=== PATIENT | female | born 1975 | race Caucasian/White ===

== ENCOUNTER 2017-05-19 14:58 | Outpatient (RCR) | payer BC, SELFPAY | END 2017-05-25 23:59 | LOC: NS 14:58 | PROVIDERS: Visit Provider Family Medicine | DX: E66.01 Morbid (severe) obesity due to excess calories (principal); Z68.42 Body mass index [BMI] 45.0-49.9, adult; Z71.3 Dietary counseling and surveillance | CPT/HCPCS: 97802 ==

== ENCOUNTER 2017-06-13 15:02 | Outpatient (RCR) | payer BC, SELFPAY | END 2017-06-25 23:59 | LOC: NS 15:02 | PROVIDERS: Visit Provider Family Medicine | DX: E66.01 Morbid (severe) obesity due to excess calories (principal); Z68.42 Body mass index [BMI] 45.0-49.9, adult; Z71.3 Dietary counseling and surveillance | CPT/HCPCS: 97803 ==

== ENCOUNTER → 2017-07-08 07:14 | Outpatient (CLI) | payer BC, SELFPAY ==
[2017-07-08 08:39] LABS: Erythrocyte Sedimentation Rate 11 mm/hr (0-20)
[2017-07-08 08:45] LABS: Absolute Lymphocyte Count 2.24 X10^3/ul (0.83-4.51); Absolute Neutrophil Count 2.9 X10^3/uL (2.0-7.7); Basophil# 0.01 X10^3/uL; Basophil% 0.2 % (0-1); Eosinophil# 0.08 X10^3/uL; Eosinophils% 1.4 % (0-5); Hematocrit 41.4 % (37-47); Hemoglobin 13.6 g/dl (12.0-15.0); Lymphocyte # 2.24 X10^3/ul (4.0); Lymphocyte % 40.4 % (19-41); Mean Corp Hgb Conc 32.9 g/gl (32-36); Mean Corpuscular Hgb 28.3 pg (27.0-32.0); Mean Corpuscular Volume 86.3 fL (81-99); Mean Platelet Vol. 9.2 fl (6.2-12.0); Monocyte# 0.37 X10^3/uL; Monocyte% 6.7 % (0-10); Neutrophil # 2.85 X10^3/uL (2.7-7.7); Neutrophil % 51.3 % (47-70); Platelet Count 263 K/mm3 (150-450); RBC Distribution Width CV 12.5 % (11.6-14.6); RBC Distribution Width SD 39.7 fl (35.1-43.9); White Blood Count 5.6 K/mm3 (4.4-11.0)
[2017-07-08 08:47] LABS: POSITIVE COUNT NO; POSITIVE DIFFERENTIAL NO; POSITIVE MORPHOLOGY NO
[2017-07-08 09:16] LABS: ALB/GLOB Ratio 0.9 RATIO (0.9-2.4); AST(SGOT) 15 U/L (15-37); Alanine Aminotransfer ALT/SGPT 24 U/L (13-56); Albumin, Serum 3.4 g/dL (3.2-5.0); Alkaline Phosphatase 63 U/L (45-117); Anion Gap 5 (5-15); BUN 13 mg/dL (7-18); BUN/Creat Ratio 15.7 RATIO (10-20); CRP 8.54 mg/L (0.0-3.0); Calcium,Total 8.6 mg/dL (8.5-10.1); Chloride 107 mmol/L (98-107); Cholesterol 166 mg/dL (200); Creatinine, Serum 0.83 mg/dL (0.55-1.02); EST Glomerular Filtration Rate 80 mL/min (>60); Est Glom Filt Rate - Afr Amer 97 mL/min (>60); Globulin 3.8 g/dL (2.2-4.2); Glucose 80 mg/dL (74-106); High Density Lipoprotein 46 mg/dL; Protein, Total 7.2 g/dL (6.4-8.2); Rheumatoid Factor < 10.0 IU/mL (<15); Sodium Level 140 mmol/L (136-145); Triglycerides 109 mg/dL; Very Low Density Lipoprotein 22 mg/dL (5-40)
[2017-07-08 09:44] LABS: Vitamin B12 530 pg/mL (211-911); Vitamin D,25 Hydroxy 25.8 ng/mL (29.95-100.01)
[2017-07-11 15:13] LABS: ANTINUCLEAR ANTIBODIES DIRECT Negative (Negative)
== END ==
PROVIDERS: Family Provider Family Medicine; PCP Family Medicine; Visit Provider Family Medicine
DX: M79.1 Myalgia (principal); Z13.1 Encounter for screening for diabetes mellitus; Z13.220 Encounter for screening for lipoid disorders
CPT/HCPCS: 36415; 80053; 80061; 82306; 82607; 84443; 85025; 85652; 86038; 86140; 86431

== ENCOUNTER 2017-07-13 15:30 | Outpatient (RCR) | payer BC, SELFPAY | END 2017-07-25 23:59 | LOC: NS 15:30 | PROVIDERS: Visit Provider Family Medicine | DX: E66.01 Morbid (severe) obesity due to excess calories (principal); Z68.42 Body mass index [BMI] 45.0-49.9, adult; Z71.3 Dietary counseling and surveillance | CPT/HCPCS: 97803 ==

== ENCOUNTER 2017-08-04 16:23 | Outpatient (RCR) | payer BC, SELFPAY | END 2017-08-25 23:59 | LOC: NS 16:23 | PROVIDERS: Family Provider Family Medicine; PCP Family Medicine; Visit Provider Family Medicine | DX: E66.01 Morbid (severe) obesity due to excess calories (principal); Z68.42 Body mass index [BMI] 45.0-49.9, adult; Z71.3 Dietary counseling and surveillance | CPT/HCPCS: 97803 ==

== ENCOUNTER 2017-09-06 16:22 | Outpatient (RCR) | payer BC, SELFPAY | END 2017-09-24 23:59 | LOC: NS 16:22 | PROVIDERS: Family Provider Family Medicine; PCP Family Medicine; Visit Provider Family Medicine | DX: E66.01 Morbid (severe) obesity due to excess calories (principal); Z68.42 Body mass index [BMI] 45.0-49.9, adult; Z71.3 Dietary counseling and surveillance | CPT/HCPCS: 97803 ==

== ENCOUNTER 2017-09-29 15:44 | Outpatient (RCR) | payer BC, SELFPAY | END 2017-10-25 23:59 | LOC: NS 15:44 | PROVIDERS: Family Provider Family Medicine; PCP Family Medicine; Visit Provider Family Medicine | DX: E66.9 Obesity, unspecified (principal); Z68.42 Body mass index [BMI] 45.0-49.9, adult; Z71.3 Dietary counseling and surveillance | CPT/HCPCS: 97803 ==

== ENCOUNTER → 2017-10-27 12:21 | Outpatient (CLI) | payer BC, SELFPAY ==
--- NOTE | 2017-10-27 12:24 | VDLE_ITS ---
Reason For Study: EDEMA Procedure LEFT Exam performed in department. GSV is normal. Technically difficult due to body habitus. CFV is compressible, spontaneous, phasic, A preliminary report was called and/or faxed competent, and demonstrates normal to CHIDI CRUMP. augmentation. FV is compressible, spontaneous, phasic, competent and demonstrates normal augmentation. POP V is compressible, spontaneous, phasic, competent and demonstrates normal augmentation. T/P Trunk is compressible. PTV is compressible. LT PerV is compressible. Interpretation Summary Deep veins of the left lower extremity are patent and compressible segmentally. There is no evidence of left lower extremity deep vein thrombosis. Valvular competence appears intact within the proximal deep venous system on the left . The left greater saphenous vein appears patent and compressible segmentally. Ordering Physician: CHIDI CRUMP Referring Physician: BEVERLY PRAJAPATI Performed By: Naomy Whitaker, EDSON, RVT
== END ==
PROVIDERS: Family Provider Family Medicine; PCP Family Medicine
DX: R60.9 Edema, unspecified (principal)
CPT/HCPCS: 93971

== ENCOUNTER 2017-11-08 08:22 | Outpatient (RCR) | payer BC, SELFPAY | END 2017-11-25 23:59 | LOC: NS 08:22 | PROVIDERS: Family Provider Family Medicine; PCP Family Medicine; Visit Provider Family Medicine | DX: E66.9 Obesity, unspecified (principal); Z68.42 Body mass index [BMI] 45.0-49.9, adult; Z71.3 Dietary counseling and surveillance | CPT/HCPCS: 97803 ==

== ENCOUNTER 2017-11-30 08:32 | Outpatient (RCR) | payer BC, SELFPAY | END 2017-12-25 23:59 | LOC: NS 08:32 | PROVIDERS: Family Provider Family Medicine; PCP Family Medicine; Visit Provider Family Medicine | DX: E66.9 Obesity, unspecified (principal); Z68.42 Body mass index [BMI] 45.0-49.9, adult; Z71.3 Dietary counseling and surveillance ==

== ENCOUNTER 2018-03-21 11:01 | Emergency (ER) | payer BC, SELFPAY ==
[2018-03-21 11:02] VITALS: BP 162/105; PULSE 117; RESP 18; TEMP 36.9; O2SAT 99; BMI 46.0
[2018-03-21] MEDS: 0.9% Normal Saline 1,000 ML 1000 ML IV (11:44)
[2018-03-21] MEDS: Metoclopramide 10 MG/2 ML Vial IV (11:45)
[2018-03-21] MEDS: DiphenhydrAMINE 50 MG/ML Syringe 25 MG IV (11:45)
[2018-03-21] MEDS: Ketorolac 30 MG/ML Syringe IV (11:45)
--- NOTE | 2018-03-21 12:01 | CT_ITS ---
STUDY: CT BRAIN WITHOUT CONTRAST REASON FOR EXAM: Female, 42 years old. Headache after carbon monoxide exposure. RADIATION DOSAGE (If Supplied By Facility): CTDIvol = ( 44.99 ) mGy, DLP = ( 812.98 ) mGycm TECHNIQUE: Transaxial CT imaging of the brain was performed without administration of intravenous contrast material. Individualized dose optimization techniques were used for this CT. COMPARISON: None. FINDINGS: Normal soft tissue structures. Normal calvarium. Normal size ventricles and extra-axial spaces for the patient's age. Normal white matter tracts of the cerebral hemispheres. Normal basal ganglia and thalami. Normal brainstem. Normal cerebellum. There is no intracranial hemorrhage. There are no findings of an acute ischemic infarction. Normal visualized paranasal sinuses. CT/Brain/Head without Contrast IMPRESSION: No acute intracranial process. Electronically Signed: Ifrah Knox MD at 12:29 EST Tel , Service support ,
[2018-03-21 12:36] VITALS: O2SAT 100
[2018-03-21 13:40] VITALS: BP 188/111; PULSE 83; RESP 16; O2SAT 100
[2018-03-21 14:54] VITALS: BP 176/107; PULSE 83; RESP 16; O2SAT 100
--- NOTE | 2018-03-21 15:18 | ED.VISSUMM ---
- ER Visit Summary Date of Service: 03/21/18 Chief Complaint: [Headache] History of Present Illness: The patient is a 42 F [presents with history of carbon monoxide exposure this morning. EMS was called to patient's home where the entire family was complaining of headache and vomiting amongst other symptoms. Patient had a carboxyhemoglobin level of 21 initially and EMS placed her on oxygen for 2 hours and her levels continue to drop. Patient states that initially her headache started to improve but then worsened again so she comes in for evaluation. Patient complained of seeing some spots in her vision. She currently rates her headache a 9 out of 10. Patient also has history of migraines which she has monthly. Patient has not had any further vomiting. Patient also thinks some of the headache may be related to the fact that she has not had any caffeine this morning and she gets caffeine withdrawal headaches.] Physical Examination: [HEENT-PERRLA, EOMI. Cranial nerves II through XII grossly intact. TMs clear. Mucous membranes moist. No adenopathy. Cardiovascular-regular rate and rhythm without murmur or ectopy Lungs-clear to auscultation, chest wall stable without crepitus or subcu emphysema Abdomen-normoactive bowel sounds, soft, nontender, no rebound or rigidity, no peritoneal signs. Neuro waol-ebvqav-zeje and heel solorzano testing within normal limits, negative Romberg, negative pronator drift, fundi benign Extremities-intact ?4, normal range of motion, normal pulses, atraumatic] Test Results: [Carboxyhemoglobin level obtained initially was 14. Patient had a CT scan of the brain without contrast and was normal. There is no evidence of brain edema.] Emergency Department Course and Treatment: [Patient was treated with nonrebreather mask and oxygen for greater than 4 hours. Her headache mostly resolved and she is feeling significantly improved. Patient feels hungry and wants to eat.] Treatment Plan: [Patient will not be going back to the home until a complete investigations been performed to find out the source of the carbon monoxide and she has a safe place to go.] Disposition: [Discharged home in stable condition] Impression: [Carbon monoxide poisoning] This note was generated with [employer] software. It may contain incorrect words, spelling, and punctuation that were not noted in review of the chart prior to signing ED Disposition - Plan for ED Patient: Chief Complaint: Poisoning Referrals: Kolby Coronado MD [Primary Care Provider] -
--- NOTE | 2018-03-21 15:21 | ED.DCSUM_ITS ---
- ER Visit Summary Date of Service: 03/21/18 Chief Complaint: [Headache] History of Present Illness: The patient is a 42 F [presents with history of carbon monoxide exposure this morning. EMS was called to patient's home where the entire family was complaining of headache and vomiting amongst other symptom s. Patient had a carboxyhemoglobin level of 21 initially and EMS placed her on oxygen for 2 hours and her levels continue to drop. Patient states that initially her headache started to improve but then worsened again so she comes in for evaluation. Patient complained of seeing some spots in her vision. She currently rates her headache a 9 out of 10. Patient also has history of migraines which she has monthly. Patient has not had any further vomiting. Patient also thinks some of the headache may be related to the fact that she has not had any caffeine this morning and she gets caffeine withdrawal headaches.] Physical Examination: [HEENT-PERRLA, EOMI. Cranial nerves II through XII grossly intact. TMs clear. Mucous membranes moist. No adenopathy. Cardiovascular-regular rate and rhythm without murmur or ectopy Lungs-clear to auscultation, chest wall stable without crepitus or subcu emphysema Abdomen-normoactive bowel sounds, soft, nontender, no rebound or rigidity, no peritoneal signs. Neuro edvx-ajsend-ocqy and heel solorzano testing within normal limits, negative Romberg, negative pronator drift, fundi benign Extremities-intact ?4, normal range of motion, normal pulses, atraumatic] Test Results: [Carboxyhemoglobin level obtained initially was 14. Patient had a CT scan of the brain without contrast and was normal. There is no evidence of brain edema.] Emergency Department Course and Treatment: [Patient was treated with nonrebreather mask and oxygen for greater than 4 hours. Her headache mostly resolved and she is feeling significantly improved. Patient feels hungry and wants to eat.] Treatment Plan: [Patient will not be going back to the home until a complete investigations been performed to find out the source of the carbon monoxide and she has a safe place to go.] Disposition: [Discharged home in stable condition] Impression: [Carbon monoxide poisoning] This note was generated with [employer] software. It may contain incorrect words, spelling, and punctuation that were not noted in review of the chart prior to signing ED Disposition - Plan for ED Patient: Chief Complaint: Poisoning Referrals: Kolby Coronado MD [Primary Care Provider] -
--- NOTE | 2018-03-21 15:21 | ED.DEP ---
ED Disposition - Plan for ED Patient: Chief Complaint: Poisoning Instructions: ED CO Poisoning Referrals: Kolby Coronado MD [Primary Care Provider] - 3-5 Days
== END 2018-03-21 15:32 | disposition intermediate care facility (04) ==
PROVIDERS: Emergency Provider Emergency Medicine; Family Provider Family Medicine; PCP Family Medicine
DX: T58.91XA Toxic effect of carbon monoxide from unspecified source, accidental (unintentional), initial encounter (principal); R51 Headache
CPT/HCPCS: 70450; 82375; 99283; J7030; A4216

== ENCOUNTER → 2018-12-04 09:29 | Outpatient (CLI) | payer OTHER, SELFPAY ==
[2018-12-04 09:22] VITALS: BMI 46.0
--- NOTE | 2018-12-04 09:32 | RAD_ITS ---
STUDY: X-RAY - LEFT SHOULDER REASON FOR EXAM: Female, 43 years old. Pain following a recent injury. TECHNIQUE: 4 view(s) of the shoulder. COMPARISON: None. FINDINGS: Normal glenohumeral articulation. Normal acromioclavicular joint. Normal acromion. Normal humeral head and visualized proximal humerus. The soft tissue structures are unremarkable. Normal visualized pulmonary apex. RAD/Shoulder min 2 Views IMPRESSION: Normal x-ray examination of the shoulder. Electronically Signed: Azael De Souza, at 10:20 EDT , Service support ,
== END ==
PROVIDERS: Family Provider Family Medicine; PCP Family Medicine; Referring Provider Physician Assistant; Visit Provider Physician Assistant
DX: S46.912A Strain of unspecified muscle, fascia and tendon at shoulder and upper arm level, left arm, initial encounter (principal)
CPT/HCPCS: 73030

== ENCOUNTER 2019-01-03 15:30 | Outpatient (RCR) | payer OTHER, SELFPAY ==
[2018-12-04 09:22] VITALS: BMI 46.0
[2018-12-11 15:11] VITALS: BMI 46.0
--- NOTE | 2018-12-18 10:21 | HP.PTEVAL ---
Patient's Visit Information KRISTA FOLEY is a 43 year old F referred to Physical Therapy by JIN Kruse with a diagnosis of L shouder contusion/strain.. Date of Evaluation: 12/18/18 Physical Therapist: Alexandr Moreno, DPT, OCS, CSCS - Visit Plan Frequency: 3x /Week Duration: 2-4 Weeks Plan: 3x/week for 3-6 weeks for. ROM and stretching Infraspinatus, RC and shoulder strength progression of HEP. STM to infraspinatus muscle belly as needed. - Subjective Findings: Fell at work. Tripped on filing cabinet door and landed on L arm on wall stretching out pretty good. That was November 28 approximately. L shoulder was getting slightly better with ROM slowly. Still aches all the time. Hurts later in the day in L shoulder blade. Works in [employer] and moving stuff around hurts. It is hard to reach. Avoids lifting. Reaching to cook at home hurts. Dressing is slow but OK. Basic ADLs are getting done. Is right handed. did not sleep well last night but did a couple nights before. 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 - Pain L shoulder blade into neck Pain Intensity (Out of 10): 2 Pain Intensity Range: 0, 4 - Objective Walking and transferring well. c/s AROM WFL and without pain. R shoulder aROM normal and painfree ROM. L shoulder AROM 140 flexion and painful, 45 IR vs 65 on R, er full at 75 and painfree. Elbow AROM and wrist aROM B WNL. reflexes 2/3 bi and tri. Sensation WNL to gross light . - ext rotation lag test. , - HK and neer. Tender to touch in infraspinatus on L. Strength L IR and er 4/5 slight discomfort ir L, flexion B 4/5 without pain. Bi and tricep 4/5 without pain. - Goals Goal 1:: Pain 0/10 at all times adn 99% better overall. Goal Time Frame: 4-6 Weeks Goal 2:: Patient able to sleep consistenly without pain or waking up Goal Time Frame: 4-6 Weeks Goal 3:: Ready for normal OH reaching at work. Goal Time Frame: 4-6 Weeks Goal 4:: I approp HEP Goal Time Frame: 4-6 Weeks - Rehabilitation Potential Physical Therapy Diagnosis: L infraspinatus muscle strain. Rehabilitation Potential: Good - Anticipated Interventions Patient/Client Instruction: Educate patient on: Condition, Plan of Care For the Purpose of:: To decrease pain, To improve muscle performance and motor function, To improve ability of physical actions for home/community/work/leisure Therapeutic Exercise to Include: Strength training, Flexibilty training, Passive ROM, Active ROM For the Purpose of:: To decrease pain, To increase ROM, To improve muscle performance and motor function, To improve ability of physical actions for home/community/work/leisure Manual Therapy Techniques to Include: Soft tissue mobilization For the Purpose of:: To decrease pain, To increase tolerance to activity/condition/position Thank you for the opportunity to evaluate your patient. For Medicare and Medicare HMO plans, please review the plan of care and approve it. It will need to be FAXED BACK to us at [phone] for Medicare purposes. For Medicare only, by signing this I certify the plan of care. Please let me know if there are questions or concerns regarding this plan of care. Physician Signature: Date:
--- NOTE | 2019-01-03 15:59 | HP.PTDCSUM ---
HP - PT D/C Summary It has been my pleasure to treat KRISTA FOLEY under orders from JIN Kruse, for the diagnosis of Tom shouder contusion/strain. for a total of 6 visit(s). Discharge Date: 01/03/19 Please see the following information for a summary of their discharge status. - Subjective Subjective: L shoulder stiff but only occasional pain if lies on it wrong. Activities are pretty normal and has to be careful reaching up OH. - Pain L shoulder blade into neck Pain Intensity (Out of 10): 0 - Overall Improvement % Improvement: 90 - Objective Objective/Function: Full aROM B shoulders and symmetrical 4+/5 strength. Moving normal today adn pt is without concerns. - Goals Goal 1:: Pain 0/10 at all times adn 99% better overall. Goal Progress: Progressing Goal 2:: Patient able to sleep consistenly without pain or waking up Goal Progress: Goal Met Goal 3:: Ready for normal OH reaching at work. Goal Progress: Goal Met Goal 4:: I approp HEP Goal Progress: Goal Met - Plan Plan: d/c - D/C Information Discharge Comments: doing well and no concerns. Ready to be done with PT. No problems at work. If there are questions or concerns regarding this patient's physical therapy, please feel free to call me at [phone]. Thank you for the referral of this patient. Sincerely, Alexandr Moreno, DPT, OCS, CSCS
== END 2019-01-03 19:00 | disposition home or self-care (01) ==
LOC: PT 15:30
PROVIDERS: Family Provider Family Medicine; PCP Family Medicine; Referring Provider Physician Assistant; Visit Provider Physician Assistant
DX: S40.012D Contusion of left shoulder, subsequent encounter (principal); S46.912D Strain of unspecified muscle, fascia and tendon at shoulder and upper arm level, left arm, subsequent encounter
CPT/HCPCS: 97110; 97140; 97162; 97530

== ENCOUNTER → 2019-11-13 16:15 | Outpatient (CLI) | payer BC, SELFPAY ==
[2018-12-11 15:11] VITALS: BMI 46.0
== END ==
PROVIDERS: PCP Family Medicine; Referring Provider Family Medicine; Visit Provider Family Medicine
DX: R35.0 Frequency of micturition (principal)
CPT/HCPCS: 87086; 87088; 87186

== ENCOUNTER → 2019-11-27 06:59 | Outpatient (CLI) | payer BC, SELFPAY ==
[2018-12-11 15:11] VITALS: BMI 46.0
--- NOTE | 2019-11-27 07:03 | BI_ITS ---
MAMMOGRAPHY - BILATERAL SCREENING REASON FOR EXAM: Female, 44 years old. Routine annual screening examination. PERTINENT HISTORY: Grandmother with breast cancer. History of bilateral breast reduction surgery. TECHNIQUE: Digital bilateral breast elsie (3D mammographic acquisition) in the CC and MLO projections. 2-D mediolateral oblique (MLO) and craniocaudad (CC) views of both breasts were obtained. CAD: Full Field Digital Mammography with Computer Added Detection was performed. COMPARISON: Comparison is made with prior outside examination dated 06/25/2013. FINDINGS: Breast Composition: There are scattered areas of fibroglandular density. There are no dominant masses or suspicious calcifications. There is a dense 1.2 cm nodule in the slightly inferior central portion of the left breast. 3 densely calcified nodules are seen in the retrocrural region of the right breast. These most likely represent fibroadenomas. No other significant abnormalities are identified. There has been no significant change since the prior study. BI/SCREEN MAMM (CAD) W/ELSIE BILAT IMPRESSION: Stable bilateral screening mammogram. Yearly follow-up mammogram recommended. (A) ASSESSMENT CATEGORY: BIRADS Category 2: Benign. A letter regarding these results will be sent to the patient by the facility within 30 days. Approximately 10% of breast cancers are not detected by mammography. A normal mammogram should not delay biopsy of a clinically suspicious abnormality. [id number] Electronically Signed: Azael De Souza, at 8:15 EDT , Service support ,
== END ==
PROVIDERS: PCP Family Medicine; Referring Provider Family Medicine; Visit Provider Family Medicine
DX: Z12.31 Encounter for screening mammogram for malignant neoplasm of breast (principal); Z80.3 Family history of malignant neoplasm of breast
CPT/HCPCS: 77063; 77067

== ENCOUNTER 2020-11-20 15:40 | Emergency (ER) | payer BC, SELFPAY ==
[2020-11-20 15:41] VITALS: BP 124/85; PULSE 102; RESP 22; TEMP 37.5; O2SAT 97; BMI 42.2
--- NOTE | 2020-11-20 16:06 | RAD_ITS ---
STUDY: X-RAY CHEST REASON FOR EXAM: Female, 45 years old. CP TECHNIQUE: Single AP portable view of the chest. COMPARISON: None. FINDINGS: The lungs are clear and expanded. There is no demonstrated pleural abnormality. Normal size heart. Normal mediastinum and simon. Normal visualized pulmonary arteries. Normal visualized aortic arch and descending thoracic aorta. Normal visualized thoracic spine. Normal visualized ribs, clavicles, and shoulders. There is no demonstrated abnormality of the visualized soft tissue structures of the upper abdomen. RAD/Chest 1 View IMPRESSION: Normal x-ray examination of the chest. Electronically Signed: Florencio Mack MD at 16:23 EDT Tel , Service support ,
[2020-11-20 17:00] VITALS: O2SAT 98
--- NOTE | 2020-11-20 17:02 | EDS_ITS ---
HPI History of Present Illness Chief Complaint: Shortness of Breath Informant: patient Onset/Context/Timing Onset: Weeks (1) Context: Gradual Onset Timing: Continuous Quality: Aching, fatigue Location: Generalized Worsened by: Movement Relieved by: Nothing Narrative Narrative: Patient presents with body aches, fatigue, and shortness of breath that has been getting worse over the past week. Patient was diagnosed with COVID-19 3 days ago. Patient states that she has been drinking fluids at home and taking Tylenol with minimal relief. Patient states she feels fatigued and achy all over. Patient states her symptoms are worse with movement. Patient admits to some nausea, vomiting, and diarrhea. Patient admits to some shortness of breath but denies any cough. Patient states she had an episode where she felt like her heart was racing and was having chest pain. [facility] Medical History (Updated 11/20/20 @ 19:[address] Alexandr Pierre DO) Arthritis Back pain Knee pain Left shoulder pain Neck pain Home Medications cholecalciferol (vitamin D3) 50 mcg (2,000 unit) capsule 2,000 unit PO DAILY 11/29/18 [History Last Taken Unknown] cyclobenzaprine 10 mg tablet 10 mg PO TID PRN #30 tab 12/04/18 [Rx Last Taken Unknown] ibuprofen 600 mg tablet 600 mg PO Q6H #40 tab 12/04/18 [Rx Last Taken Unknown] Allergy/AdvReac Type Severity Reaction Status Date / Time No Known Allergies Allergy Verified 11/20/20 15:43 Surgical History History of Hx of bilateral breast reduction surgery Hx of cholecystectomy Social History Smoking Status: Never smoker alcohol intake: never ROS ROS ED Constitutional Constitutional ED: Reports fever(s); Denies chills Eyes Eyes: Denies blurry vision or change in vision ENT ENT ED: Denies rhinorrhea or sore throat Cardiovascular Cardiovascular: Reports chest pain and racing heartbeat Respiratory/Chest Respiratory/Chest: Reports dyspnea; Denies cough Gastrointestinal Gastrointestinal: Reports diarrhea, nausea and vomiting Genitourinary Genitourinary ED: Denies dysuria or hematuria Musculoskeletal Musculoskeletal: Reports back pain and myalgias; Denies neck pain Integumentary Denies abscess or rash Neurologic Neurologic: Reports headache(s); Denies weakness Allergic/Immunologic Allergic/Immunologic ED: Denies mouth swelling or urticaria EXAM Physical Exam Const Vital Signs: 11/20/20 15:41 11/20/20 17:00 11/20/20 19:00 Temperature 99.5 F H Temperature Source Temporal Pulse Rate 102 H 91 Respiratory Rate 22 H 20 H Respiratory Effort Short of Breath Labored Respiratory Depth Shallow Respiratory Pattern Tachypnea Blood Pressure 124/85 H 153/84 H Blood Pressure Mean 98 107 Pulse Ox 97 94 Oxygen Delivery Method Room Air Room Air Room Air Positive well nourished, well developed and obese General Appearance ED: well developed Nutritional Appearance: obese HEENT Reports moist mucous membranes Neck supple and no JVD Resp normal respiratory effort and clear to auscultation bilaterally Cardio regular rate, regular rhythm and no murmurs GI normal to inspection, nondistended, normoactive bowel sounds and non-tender Palpation: soft Extremity normal to inspection General Extremety ED: Negative for edema or tenderness General Extremity: Negative for edema Neuro oriented x3, CN's II-XII intact bilaterally and no sensory deficits noted Sensorium / Orientation: alert Motor Exam: strength 5/5 throughout Psych mental status grossly normal Skin no rashes or lesions noted MDM MDM MDM Narrative Medical decision making narrative: Patient was given 500 cc bolus of normal saline. Patient was given albuterol inhaler 4 puffs here. Patient was given a dose of Tylenol here. CBC shows a white blood cell count of 2.9. Comprehensive metabolic profile was essentially within normal limits. Portable 1 view chest x-ray was obtained. On my interpretation, lung ojeda are clear. There is normal cardiac silhouette. Bony thorax is normal. There is no acute process noted. Radiologist also interpreted the x-ray and agrees. Patient is feeling better on reevaluation. Patient was given a referral for monoclonal antibody infusion. Patient was instructed to continue the inhaler as needed. Patient was instructed to continue taking Tylenol or ibuprofen as needed. Patient was instructed to follow-up with her primary care physician in 5 to 7 days. Patient understood and was agreeable with the plan. All questions were answered. Lab Data Attestation: I reviewed the patient's lab results. Labs: Laboratory Results - last 24 hr 11/20/20 11/20/20 17:20 17:20 WBC 2.9 L RBC 4.83 Hgb 13.8 Hct 40.6 MCV 84.1 MCH 28.6 MCHC 34.0 RDW Std Deviation 35.9 RDW Coeff of Jimenez 11.9 Plt Count 166 MPV 8.9 Immature Gran % (Auto) 0.000 Neut % (Auto) 62.1 Lymph % (Auto) 33.8 Van Zandt % (Auto) 4.1 Eos % (Auto) 0.0 Baso % (Auto) 0.0 Absolute Neuts (auto) 1.8 L Absolute Lymphs (auto) 0.99 Nucleated RBC % 0 Differential Comment SCANNED Sodium 139 Potassium 3.2 L Chloride 107 Carbon Dioxide 26.0 Anion Gap 6 BUN 9 Creatinine 0.91 Estim Creat Clear Calc 83.53 Est GFR (MDRD) Af Amer 86 Est GFR (MDRD) Non-Af 71 BUN/Creatinine Ratio 9.9 L Glucose 92 Calcium 8.3 L Total Bilirubin 0.30 AST 45 H ALT 57 H Alkaline Phosphatase 51 Total Protein 6.9 Albumin 3.1 L Globulin 3.8 Albumin/Globulin Ratio 0.8 L Radiography Chest X-Ray - ED: 1 View, Read by ED Physician, Read by Radiologist and Normal Diagnostic Testing: Radiology Impression Chest X-Ray 11/20/20 16:06 IMPRESSION: Normal x-ray examination of the chest. Electronically Signed: Florencio Mack MD at 16:23 EDT Tel , Service support , Discharge Plan Triage Chief Complaint: Shortness of Breath ED Provider: Alexandr Pierre Dx/Rx/DC Orders Clinical Impression: COVID-19 Instructions: Coronavirus Disease 2019 (COVID-19): Overview Prescriptions: No Action cholecalciferol (vitamin D3) 2,000 unit capsule 2,000 unit PO DAILY RF: 0 ibuprofen 600 mg tablet 600 mg PO Q6H Qty: 40 RF: 0 cyclobenzaprine 10 mg tablet 10 mg PO TID PRN (Reason: muscle spasm) Qty: 30 RF: 0 Other Ambulatory Orders: COVID Outpatient Monoclonal Antibody Referral (Routine) Location: None Selected Ordered By: Dr. Alexandr Pierre Primary Care Provider: Kolby Coronado Referrals: Kolby Coronado MD [Primary Care Provider] - 5-7 Days Disposition Disposition: Home, Self Care
[2020-11-20] MEDS: Acetaminophen 500 MG Tablet 1000 MG PO (17:22)
[2020-11-20 17:30] LABS: Absolute Lymphocyte Count 0.99 X10^3/uL (0.83-4.51); Absolute Neutrophil Count 1.8 X10^3/uL (2.0-7.7); Hematocrit 40.6 % (37-47); Hemoglobin 13.8 g/dL (12.0-15.0); Lymphocyte # 0.99 X10^3/ul (0.83-4.51); Lymphocyte % 33.8 % (19-41); Mean Corpuscular Hgb 28.6 pg (27.0-32.0); Mean Corpuscular Volume 84.1 fL (81-99); Mean Platelet Vol. 8.9 fl (6.2-12.0); Monocyte# 0.12 X10^3/uL; Monocyte% 4.1 % (0-10); NRBC Flagged by Analyzer 0 % (0-5); Neutrophil # 1.82 X10^3/uL (2.7-7.7); Neutrophil % 62.1 % (47-70); POSITIVE MORPHOLOGY YES; Platelet Count 166 K/mm3 (150-450); RBC Distribution Width CV 11.9 % (11.6-14.6); RBC Distribution Width SD 35.9 fl (35.1-43.9); Red Blood Count 4.83 M/mm3 (4.2-5.4); White Blood Count 2.9 K/mm3 (4.4-11.0)
[2020-11-20 17:42] LABS: Differential Indicated SCAN CRITERIA MET
[2020-11-20 17:46] LABS: ALB/GLOB Ratio 0.8 RATIO (0.9-2.4); AST(SGOT) 45 U/L (15-37); Alanine Aminotransfer ALT/SGPT 57 U/L (13-56); Albumin, Serum 3.1 g/dL (3.2-5.0); Alkaline Phosphatase 51 U/L (45-117); Anion Gap 6 (5-15); BUN 9 mg/dL (7-18); BUN/Creat Ratio 9.9 RATIO (10-20); Calcium,Total 8.3 mg/dL (8.5-10.1); Chloride 107 mmol/L (98-107); Creatinine, Serum 0.91 mg/dL (0.55-1.02); EST Glomerular Filtration Rate 71 mL/min (>60); Est Glom Filt Rate - Afr Amer 86 mL/min (>60); Estimated Creatinine Clearance 83.53 ml/min; Globulin 3.8 g/dL (2.2-4.2); Glucose 92 mg/dL (74-106); Potassium 3.2 mmol/L (3.5-5.1); Protein, Total 6.9 g/dL (6.4-8.2); Sodium Level 139 mmol/L (136-145)
[2020-11-20 18:09] LABS: Differential Comment SCANNED
[2020-11-20 19:00] VITALS: BP 153/84; PULSE 91; RESP 20; O2SAT 94
[2020-11-20 19:17] VITALS: BP 136/70; PULSE 90; RESP 20; O2SAT 93
== END 2020-11-20 19:20 | disposition home or self-care (01) ==
PROVIDERS: Emergency Provider Emergency Medicine; PCP Family Medicine
DX: U07.1 COVID-19 (principal)
CPT/HCPCS: 71045; 80053; 85025; 99285; J7040; A4216

== ENCOUNTER → 2020-12-03 10:04 | Outpatient (CLI) | payer BC, SELFPAY ==
[2020-12-03 10:06] LABS: Bacteria 0 SEEN /hpf (None Seen); Mucous, Urine 0 SEEN /hpf (<or=2+); Red Blood Cells-Urine 0 SEEN /hpf (0-5); Squamous Epithelial Cells - UA 0 SEEN /hpf (5-10); White Blood Cells 0 SEEN /hpf (0-5)
[2020-12-03 12:20] LABS: Color, Urine Yellow (Yellow); Glucose, Dipstick Normal (Normal); Ketone-Dipstick Negative (Negative); Leukocyte Esterase-Dipstick Negative /ul (Negative); Nitrite-Dipstick Negative (Negative); Occult Blood-Urine Negative /ul (Negative); Protein-Dipstick Negative (Negative); Specific Gravity, Urine 1.005 (1.002-1.030); Urine Bilirubin Dipstick Negative (Negative); Urine Clarity Clear (Clear); Urine Urobilinogen Normal (Normal)
== END ==
PROVIDERS: PCP Family Medicine; Referring Provider Family Medicine; Visit Provider Family Medicine
DX: R39.9 Unspecified symptoms and signs involving the genitourinary system (principal)
CPT/HCPCS: 81001; 87086

== ENCOUNTER → 2021-03-05 08:07 | Outpatient (CLI) | payer BC, SELFPAY ==
[2021-03-05 11:20] LABS: Vitamin D,25 Hydroxy 25.2 ng/mL
[2021-03-05 11:29] LABS: Anion Gap 6 (5-15); BUN 13 mg/dL (7-18); BUN/Creat Ratio 15.3 RATIO (10-20); Calcium,Total 9.3 mg/dL (8.5-10.1); Chloride 106 mmol/L (98-107); Cholesterol 197 mg/dL (200); Creatinine, Serum 0.85 mg/dL (0.55-1.02); EST Glomerular Filtration Rate 77 mL/min (>60); Est Glom Filt Rate - Afr Amer 93 mL/min (>60); Glucose 88 mg/dL (74-106); High Density Lipoprotein 64 mg/dL; Potassium 4.1 mmol/L (3.5-5.1); Sodium Level 139 mmol/L (136-145); Thyroid Stim Hormone (TSH) 1.56 uIU/mL (0.358-3.74); Triglycerides 96 mg/dL; Very Low Density Lipoprotein 19 mg/dL (5-40)
== END ==
PROVIDERS: PCP Family Medicine; Referring Provider Family Medicine; Visit Provider Family Medicine
DX: F41.9 Anxiety disorder, unspecified (principal); Z13.220 Encounter for screening for lipoid disorders; Z13.1 Encounter for screening for diabetes mellitus
CPT/HCPCS: 36415; 80048; 80061; 82306; 84443

== ENCOUNTER → 2022-01-21 | Outpatient (CLI) | payer BC, SELFPAY ==
[2022-01-21 18:03] LABS: Hematocrit 41.1 % (37-47); Hemoglobin 13.7 g/dL (12.0-15.0); Mean Corp Hgb Conc 33.3 g/dL (32-36); Mean Corpuscular Hgb 29.2 pg (27.0-32.0); Mean Corpuscular Volume 87.6 fL (81-99); Mean Platelet Vol. 8.8 fl (6.2-12.0); Platelet Count 328 K/mm3 (150-450); RBC Distribution Width CV 12.1 % (11.6-14.6); RBC Distribution Width SD 38.5 fl (35.1-43.9); Red Blood Count 4.69 M/mm3 (4.2-5.4); White Blood Count 7.9 K/mm3 (4.4-11.0)
[2022-01-21 18:42] LABS: ALB/GLOB Ratio 0.8 RATIO (0.9-2.4); AST(SGOT) 16 U/L (15-37); Alanine Aminotransfer ALT/SGPT 30 U/L (13-56); Albumin, Serum 3.3 g/dL (3.2-5.0); Alkaline Phosphatase 77 U/L (45-117); Anion Gap 5 (5-15); BUN 14 mg/dL (7-18); BUN/Creat Ratio 14.1 RATIO (10-20); Chloride 102 mmol/L (98-107); Creatinine, Serum 0.99 mg/dL (0.55-1.02); EST Glomerular Filtration Rate 64 mL/min (>60); Est Glom Filt Rate - Afr Amer 77 mL/min (>60); Globulin 3.9 g/dL (2.2-4.2); Glucose 88 mg/dL (74-106); Magnesium 2.2 mg/dL (1.6-2.6); Potassium 3.7 mmol/L (3.5-5.1); Protein, Total 7.2 g/dL (6.4-8.2); Sodium Level 135 mmol/L (136-145); Thyroid Stim Hormone (TSH) 2.22 uIU/mL (0.358-3.74)
== END | disposition home or self-care (01) ==
LOC: MFPLAB 16:51
PROVIDERS: PCP Family Medicine; Referring Provider Family Medicine; Visit Provider Family Medicine
DX: I10 Essential (primary) hypertension (principal)
CPT/HCPCS: 36415; 80053; 82533; 83735; 84443; 85027

== ENCOUNTER → 2022-10-12 | Outpatient (CLI) | payer BC, SELFPAY ==
[2022-10-12 10:29] LABS: Erythrocyte Sedimentation Rate 12 mm/hr (0-30)
[2022-10-12 10:31] LABS: Absolute Lymphocyte Count 1.95 X10^3/uL (0.83-4.51); Absolute Neutrophil Count 2.9 X10^3/uL (2.0-7.7); Basophil# 0.02 X10^3/uL; Basophil% 0.4 % (0-1); Eosinophil# 0.14 X10^3/uL; Eosinophils% 2.6 % (0-5); Hematocrit 42.1 % (37-47); Hemoglobin 13.6 g/dL (12.0-15.0); Lymphocyte # 1.95 X10^3/ul (0.83-4.51); Mean Corp Hgb Conc 32.3 g/dL (32-36); Mean Corpuscular Hgb 28.8 pg (27.0-32.0); Monocyte# 0.38 X10^3/uL; NRBC Flagged by Analyzer 0 % (0-5); Neutrophil # 2.91 X10^3/uL (2.7-7.7); Neutrophil % 53.6 % (47-70); Platelet Count 323 K/mm3 (150-450); RBC Distribution Width CV 12.3 % (11.6-14.6); RBC Distribution Width SD 40.1 fl (35.1-43.9); Red Blood Count 4.73 M/mm3 (4.2-5.4); White Blood Count 5.4 K/mm3 (4.4-11.0)
[2022-10-12 10:58] LABS: Vitamin B12 539 pg/mL (211-911); Vitamin D,25 Hydroxy 43.8 ng/mL
[2022-10-12 11:02] LABS: ALB/GLOB Ratio 0.8 RATIO (0.9-2.4); AST(SGOT) 18 U/L (15-37); Alanine Aminotransfer ALT/SGPT 27 U/L (13-56); Albumin, Serum 3.1 g/dL (3.2-5.0); Alkaline Phosphatase 70 U/L (45-117); Anion Gap 3 (5-15); BUN 10 mg/dL (7-18); Calcium,Total 8.9 mg/dL (8.5-10.1); Chloride 106 mmol/L (98-107); EST Glomerular Filtration Rate 63 mL/min (>60); Est Glom Filt Rate - Afr Amer 76 mL/min (>60); Ferritin 54 ng/mL (8-252); Globulin 3.8 g/dL (2.2-4.2); Glucose 114 mg/dL (74-106); Iron 70 ug/dL (50-170); Potassium 3.9 mmol/L (3.5-5.1); Protein, Total 6.9 g/dL (6.4-8.2); Rheumatoid Factor < 10.0 IU/mL (<15); Sodium Level 138 mmol/L (136-145); Thyroid Stim Hormone (TSH) 1.91 uIU/mL (0.358-3.74); Uric Acid 3.8 mg/dL (2.6-6.0)
[2022-10-13 15:08] LABS: ANTINUCLEAR ANTIBODIES DIRECT Negative (Negative)
== END | disposition home or self-care (01) ==
LOC: MFPLAB 08:52
PROVIDERS: PCP Family Medicine; Visit Provider Family Medicine
DX: R53.83 Other fatigue (principal); M25.50 Pain in unspecified joint; E55.9 Vitamin D deficiency, unspecified
CPT/HCPCS: 36415; 80053; 82306; 82533; 82607; 82728; 83540; 84443; 84550; 85025; 85652; 86038; 86140; 86225; 86235; 86431

== ENCOUNTER → 2022-10-28 | Outpatient (CLI) | payer BC, SELFPAY ==
--- NOTE | 2022-10-28 10:11 | RAD_ITS ---
STUDY: X-RAY - right knee KNEE REASON FOR EXAM: Left knee pain. No injury., 47 year old. Female patient TECHNIQUE: 4 view(s) of the knee. COMPARISON: None. FINDINGS: Normal visualized distal femur. Normal visualized proximal tibia and fibula. Normal proximal tibiofibular articulation. Normal medial femorotibial compartment. Normal lateral femorotibial compartment. Normal patellofemoral articulation. The soft tissue structures are unremarkable. RAD/Knee 4 or More Views IMPRESSION: Normal x-ray examination of the knee. Electronically Signed: Azael De Souza MD at 11:07 EDT ,
== END | disposition home or self-care (01) ==
LOC: MTRAD 10:10
PROVIDERS: PCP Family Medicine; Visit Provider Physician Assistant Surgical
DX: S86.912A Strain of unspecified muscle(s) and tendon(s) at lower leg level, left leg, initial encounter (principal)
CPT/HCPCS: 73564

== ENCOUNTER → 2023-06-14 | Outpatient (CLI) | payer BC, SELFPAY ==
--- NOTE | 2023-06-14 07:24 | BI_ITS ---
MAMMOGRAPHY - BILATERAL SCREENING REASON FOR EXAM: Female, 47 years old. Routine annual screening examination. PERTINENT HISTORY: Grandmother with breast cancer. History of bilateral breast reduction surgery. TECHNIQUE: Digital bilateral breast elsie (3D mammographic acquisition) in the CC and MLO projections. 2-D mediolateral oblique (MLO) and craniocaudad (CC) views of both breasts were obtained. CAD: Full Field Digital Mammography with Computer Added Detection was performed. COMPARISON: Comparison is made with prior study dated November 27, 2019. FINDINGS: Breast Composition: There are scattered areas of fibroglandular density. There are no dominant masses or suspicious calcifications. Stable dense retroareolar rounded breast calcifications most likely postoperative in nature. No other significant abnormalities are identified. There has been no significant change since the prior study. BI/SCRN MAMM (CAD)W/ELSIE BILAT IMPRESSION: Stable bilateral screening mammogram. Yearly follow-up mammogram recommended. (A) ASSESSMENT CATEGORY: BIRADS Category 2: Benign. A letter regarding these results will be sent to the patient by the facility within 30 days. Approximately 10% of breast cancers are not detected by mammography. A normal mammogram should not delay biopsy of a clinically suspicious abnormality. [id number] Electronically Signed: Azael De Souza MD at 8:41 EDT ,
== END | disposition home or self-care (01) ==
LOC: OPBI 07:22
PROVIDERS: PCP Family Medicine; Referring Provider Family Medicine; Visit Provider Family Medicine
DX: Z12.31 Encounter for screening mammogram for malignant neoplasm of breast (principal); Z80.3 Family history of malignant neoplasm of breast
CPT/HCPCS: 77063; 77067

== ENCOUNTER → 2023-09-14 | Outpatient (CLI) | payer OTHER, SELFPAY ==
[2023-09-14 18:47] LABS: ALB/GLOB Ratio 0.9 RATIO (0.9-2.4); AST(SGOT) 16 U/L (15-37); Alanine Aminotransfer ALT/SGPT 23 U/L (13-56); Albumin, Serum 3.1 g/dL (3.2-5.0); Alkaline Phosphatase 65 U/L (45-117); Anion Gap 6 (5-15); BUN 16 mg/dL (7-18); BUN/Creat Ratio 17.1 RATIO (10-20); Calcium,Total 9.3 mg/dL (8.5-10.1); Chloride 106 mmol/L (98-107); Creatinine, Serum 0.94 mg/dL (0.55-1.02); EST Glomerular Filtration Rate 67 mL/min (>60); Est Glom Filt Rate - Afr Amer 82 mL/min (>60); Estradiol 65.9 pg/mL; Follicle Stimulating Hormone 5.1 mIU/mL; Globulin 3.6 g/dL (2.2-4.2); Glucose 93 mg/dL (74-106); Luteinizing Hormone 2.5 mIU/mL; Protein, Total 6.7 g/dL (6.4-8.2); Sodium Level 139 mmol/L (136-145); Thyroid Stim Hormone (TSH) 2.66 uIU/mL (0.358-3.74)
[2023-09-16 04:08] LABS: DHEA Sulfate 36.4 ug/dL (41.2-243.7)
== END | disposition home or self-care (01) ==
PROVIDERS: PCP Family Medicine; Referring Provider Family Medicine; Visit Provider Family Medicine
DX: E66.9 Obesity, unspecified (principal); L74.9 Eccrine sweat disorder, unspecified; N95.1 Menopausal and female climacteric states; E55.9 Vitamin D deficiency, unspecified
CPT/HCPCS: 36415; 80053; 82306; 82533; 82627; 82670; 83001; 83002; 84403; 84443; 86140; 82626

== ENCOUNTER 2024-01-18 07:17 | Day surgery (SDC) | payer OTHER, SELFPAY ==
[2024-01-18] VITALS (8 sets, daily range): BP systolic 106–147; BP diastolic 75–91; PULSE 74–84; RESP 16–18; TEMP 36.6–36.9; O2SAT 94–97; BMI 52.4
--- OUTSIDE RECORDS SUMMARY | 2024-01-18 07:20 | XMS RPT_ITS | CCD ---
Author Organization [facility] Care Team Providers Care Airbrush Artist Technical Name Role Phone Manuel Miranda Unavailable Anastasia Bradford LPN Unavailable Unavailab Henry Cavanaugh Unavailable Anastasia Bradford LPN Unavailable Unavailab Payton Lozano LPN Unavailable Manuel Miranda Unavailable Pcp, No Unavailable Unavailable Beverly Coronado MD Primary Care Provider MARTINE CYR Referring Unavailable BEVERLY CORONADO Primary Care BEVERLY Simmons Primary Care Lis CORONADO MD, DR PAUL Primary Care Physician Pcp [place]OWER [place]ID, No Unavailable Unavailable Beverly Coronado MD Primary Care Provider Medications Current Medications Medication Drug Class(es) Dates Sig (Normalized) Sig (Original) acetaminophen 325 mg oral capsule (1 source) Start: 11-28-2020 Tylenol 325 mg oral capsule Dose : 650 mg =, Oral, q4h, PRN Pain, scale 1-6, 0 Refill(s) Start Date: 11/28/20 Status: Ordered cholecalciferol, vitamin D3, (VITAMIN D3 ORAL) (3 sources) cholecalciferol, vitamin D3, (VITAMIN D3 ORAL) Take by mouth. Active cholecalciferol, vitamin D3, (VITAMIN D3 ORAL) Take by mouth. 0 Active Comment on above: Take by mouth. dextromethorphan hydrobromide 2 mg/ml / guaiFENesin 20 mg/ml oral solution (1 source) Uncompetitive R-fsppfk-B-aspartate Receptor Antagonist, Sigma-1 Agonist Start: 11-29-19 21 take 1 dose by mouth every four hours as needed for cough dextromethorphan- guaifenesin 10 mg-100 mg/5 mL oral liquid Dose = 10 mL, Oral, q4h, PRN Cough, 0 Refill(s) Start Date: 11/28/20 Status: Ordered Ibuprofen (3 sources) Nonsteroidal Anti-inflammatory Drug IBUPROFEN (ADVIL ORAL) Take by mouth as needed. Active IBUPROFEN (ADVIL ORAL) Take by mouth as needed. 0 Active Comment on above: Take by mouth as nee ded. loperamide hydrochloride 2 mg oral tablet (1 source) Opioid Agonist Start: 11-28-2020 Imodium A-D 2 mg oral tablet Dose : 2 mg = 1 tab(s), Oral, AsDirected, PRN Diarrhea, 0 Refill(s) Start Date: 11/28/20 Status: Ordered sodium chloride 0.111 meq/ml nasal spray (1 source) Start: 11-28-2020 sodium chloride 0.65% nasal spray Nostril, each, q2h, PRN Dry nasal passages, 0 Refill(s) Start Date: 11/28/20 Status: Ordered Completed/Discontinued Medications Medication Drug Class(es) Dates Sig (Normalized) Sig (Original) cyclobenzaprine hydrochloride 10 mg oral tablet (4 sources) Muscle Relaxant Start: 10-27-2016 CYCLOBENZAPRINE HCL 10 MG TABS 1 tablet every evening after work hours as needed for discomfort CYCLOBENZAPRINE HCL [id number] Manuel ABDI docusate sodium 100 mg oral capsule (1 source) Start: 11-19-2013 End: 12-19-2013 Colace 100 mg oral capsule Dose : 100 mg = 1 cap(s), PO, BID, # 60 cap(s), 0 Refill(s) Start Date: 11/19/13 Stop Date: 12/19/13 Status: Ordered naproxen sodium 550 mg oral tablet (3 sources) Nonsteroidal Anti-inflammatory Drug Start: 11-08-2016 NAPROXEN SODIUM 550 MG TABS 1 tablet twice daily NAPROXEN SODIUM [id number] Manuel ABDI predniSONE 50 mg oral tablet (4 sources) Start: 10-27-2016 PREDNISONE 50 MG TABS 1 tablet every morning for 5 days PREDNISONE [id number] Manuel ABDI Problems Active Problems Problem Classification Problem Date Documented Date Episodic/Chronic Anxiety disorders (3 sources) Mixed anxiety and depressive disorder; Translations: [Other specified anxiety disorders] Onset: 08-19-2010 08-19-2010 Chronic Chronic obstructive pulmonary disease and bronchiectasis (3 sources) Bronchitis; Translations: [Bronchitis, not specified as acute or chronic] Onset: 09-20-2022 Episodic Diverticulosis and diverticulitis (1 source) Diverticulitis 11-19-2013 Chronic Fever of unknown origin (1 source) Fever; Translations: [Fever, unspecified] Onset: 05-02-2023 Episodic Menstrual disorders (3 sources) Menometrorrhagia; Translations: [Excessive and frequent menstruation with irregular cycle] Onset: 11-24-2011 11-24-2011 Chronic Osteoarthritis (3 sources) Arthritis; Translations: [Unspecified osteoarthritis, unspecified site] 11-24-2011 Chronic Unclassified (4 sources) Physical examination; Translations: [Encounter for general adult medical examination without abnormal findings] Onset: 05-26-2016 05-26-2016 Viral infection (1 source) Viral disease; Translations: [Viral infection, unspecified] Onset: 05-02-2023 Episodic Past or Other Problems Problem Classification Problem Date Documented Da te Episodic/Chronic Other complications of (1 source) Supervision of other high risk pregnancies, unspecified trimester; Translations: [Supervision of other high-risk ] Onset: 11-06-2008 Resolved: 03-11-2009 03-11-2009 Episodic Other non-traumatic joint disorders (8 sources) Pain in left shoulder; Translations: [Elbow joint effusion] Onset: 07-27-2016 10-27-2016 Episodic Other non-traumatic joint disorders (2 sources) Elbow joint effusion; Translations: [Effusion, right elbow] Onset: 07-27-2016 07-27-2016 Episodic Sprains and strains (18 sources) Strain of unspecified muscle, fascia and tendon at shoulder and upper arm level, left arm, initial encounter; Translations: [Strain of unspecified muscle, fascia and tendon at shoulder and upper arm level, right arm, initial encounter] Onset: 07-27-2016 10-27-2016 Episodic Superficial injury; contusion (14 sources) Contusion of left shoulder, initial encounter; Translations: [Contusion of right shoulder, initial encounter] Onset: 07-27-2016 10-27-2016 Episodic Results Test Name Value Interpretation Reference Range Facility LABORATORYOrdered By: Ortiz Alvarado on 05-02-2023 FLUAV RNA NEHA+probe Ql (Resp) Negative (05/02/23 3:03 AM) Normal Negative AO Auto Urine SS FLUBV RNA NEHA+probe Ql (Resp) Positive *ABN* (05/02/23 3:03 AM) Invalid Interpretation Code Negative AO Auto Urine SS RSV RNA NEHA+probe Ql (Resp) Negative (05/02/23 3:03 AM) Normal Negative AO Auto Urine SS SARS-CoV-2 (COVID-19) RNA NEHA+probe Ql (Resp) Negative 1 (05/02/23 3:03 AM) Normal Negative AO Auto Urine SS Comment on above: Interpretive Data: R esults from the Xpert Xpress CoV-2/Flu/RSV plus test should be correlated with the clinical history, epidemiological data, and other data available to the clinical evaluating the patient. Performance of the Xpert Xpress CoV-2/Flu/RSV plus test has only been established in nasopharyngeal swab specimen. Erroneous test results might occur from improper specimen collection, failure to follow the recommended sample collection, handling and storage procedures, technical error, or sample mix-up. False negative results may occur if a virus is present at a level below the analytical limit of detection. Viral nucleic acid may persist in vivo, independent of virus viability. Detection of analyte target(s) does not imply that the corresponding virus(es) are infectious or are the causative agents for clinical symptoms. Recent patient exposure to FluMist or other live attenuated influenza vaccines may cause inaccurate positive results. CNOVon 09-20-2022 CNOV Office Visit ([facility] ) KRISTA FOLEY ([id number]) 1975 F Date Time Provider Department 09/20/22 9:15 AM MARTINE CYR [facility] During your visit today, we recorded the following information about you: Temperature Pulse Respiration Blood pressure 98.3 degrees 98/minute 18/minute 126/78 Weight 164.2 kg Martine Cyr PA-C 09/20/2022 11:19 AM Signed This note was created using SquareTraderiter. Subjective Krista Foley is a 47 year old female. HPI Patient presents with a chief complaint of cough and wheezing over the past week. She denies history of asthma. She is not a smoker. No fever. She states the cough had worsened in the past day so she came in for evaluation. She was concern for pneumonia. No diarrhea or vomiting. No abdominal pain. She took a home COVID test yesterday which was negative. Denies chest pain. Review of Systems Constitutional: Negative for fever. HENT: Positive for congestion. Negative for sore throat. Respiratory: Positive for cough, shortness of breath and wheezing. Cardiovascular: Negative. Gastrointestinal: Negative. Genitourinary: Negative. Musculoskeletal: Negative. All other systems reviewed and are negative. PAST MEDICAL HISTORY Diagnosis Date Arthritis Depression with anxiety 08/19/2010 Diverticulitis 08/07 Esophageal reflux Menometrorrhagia 11/24/2011 VIOLETA on CPAP Other forms of migraine Current Outpatient Medications Medication Sig Dispense Refill cholecalciferol, vitamin D3, (VITAMIN D3 ORAL) Take by mouth. IBUPROFEN (ADVIL ORAL) Take by mouth as needed. No current facility-administered medications for this visit. PAST SURGICAL HISTORY Procedure Laterality Date DELIVERY ONLY 2005,2008 , low cervicalx2 EXTRACTION, ERUPTED TOOTH OR EXPOSED ROOT (ELEVATION AND/OR FORCEPS REMOVAL) wisdom teeth LIGATE FALLOPIAN TUBE 2009 Tubal ligation OVARIAN CYSTECTOMY 2009 Done with C section and BTL, left REDUCTION OF LARGE BREAST 2006 REMOVAL GALLBLADDER 2004 Cholecystectomy FAMILY HISTORY Problem Relation Age of Onset other (Uterine Fibroids) Mother Hysterectomy at 36 Hypertension Father other (Colon Polyps) Father Heart Maternal Grandmother [place] Cancer Maternal Grandfather PANCREATIC/LIVER Heart Paternal Grandmother Cancer Paternal Grandmother Cancer Paternal Grandfather Kidney Coronary Artery Disease Paternal Grandfather Stroke Paternal Grandfather Social History Tobacco Use Smoking status: Never Smokeless tobacco: Never Vaping Use Vaping Use: Never used Substance Use Topics Alcohol use: No Drug use: No BP 126/78 Pulse 98 Temp 36.8 ?C (98.3 ?F) Resp 18 Wt (!) 164.2 kg (362 lb) LMP 02/06/2012 SpO2 95% BMI 51.21 kg/m? Objective LMP 02/06/2012 Physical Exam Vitals reviewed. Constitutional: Appearance: Normal appearance. HENT: Head: Normocephalic and atraumatic. Right Ear: Tympanic membrane, ear canal and external ear normal. Left Ear: Tympanic membrane, ear canal and external ear normal. Nose: Congestion present. Mouth/Throat: Mouth: Mucous membranes are moist. Pharynx: Oropharynx is clear. Cardiovascular: Rate and Rhythm: Normal rate and regular rhythm. Heart sounds: Normal heart sounds. Pulmonary: Effort: Pulmonary effort is normal. No respiratory distress. Breath sounds: Wheezing present. No rhonchi or rales. Musculoskeletal: Cervical back: Neck supple. Lymphadenopathy: Cervical: No cervical adenopathy. Skin: General: Skin is warm and dry. Neurological: Mental Status: She is alert. Assessment and Plan ASSESSMENT/PLAN: 1. Bronchitis - ICD9: 490, ICD10: J40 X-ray is down right now, she will return later when it is up to have an x-ray of her chest. I will treat with prednisone, doxycycline and albuterol inhaler. Discussed red flags to be seen again. Follow-up with PCP. Patient agreeable. - XR CHEST 2V FRONTAL/LAT Martine Cyr PA-C Allergies As of Date: 09/20/2022 (No Active Allergies) Date Reviewed: 11/16/2020 Reviewed by: Ivone Ibarra - Fully Assessed Primary Visit Diagnosis:Bronchitis [J40] Order(s):XR CHEST 2V FRONTAL/LAT [[id number]] Order #: [id number] FUTURE Prescriptions as of 09/20/2022 - cholecalciferol, vitamin D3, (VITAMIN D3 ORAL) Take by mouth. - IBUPROFEN (ADVIL ORAL) Take by mouth as needed. Problem List As Of Date 09/20/2022 Noted Resolved Previous Delivery, Antepartum Conditio*07/19/2008 03/11/2009 Supervision of Other High-Risk [O09.8*11/06/2008 03/11/2009 Depression with anxiety [F41.8] 08/19/2010 Arthritis [M19.90] Menometrorrhagia [N92.1] 11/24/2011 Encounter Status:Closed by MARTINE CYR on 09/20/22 [facility] MARITONon 09-20-2022 CNPN Telephone ([facility]) KRISTA FOLEY ([id number]) 1975 F Date Time Provider Department 09/20/22 MARTINE CYR [facility] During your visit today, we recorded the following information about you: Martine Cyr PA-C 09/20/2022 6:06 PM Signed Please call and let patient know her chest x-ray was clear. Continue medications as prescribed. Mel Andersen MA 09/20/2022 6:20 PM Signed Patient notified of results, verbalized understanding of instructions given. Mel Andersen MA Allergies As of Date: 09/20/2022 (No Active Allergies) Date Reviewed: 11/16/2020 Reviewed by: Ivone Ibarra - Fully Assessed Reason for Visit: Results [95] Prescriptions as of 09/20/2022 - cholecalciferol, vitamin D3, (VITAMIN D3 ORAL) Take by mouth. - IBUPROFEN (ADVIL ORAL) Take by mouth as needed. Problem List As Of Date 09/20/2022 Noted Resolved Previous Delivery, Antepartum Conditio*07/19/2008 03/11/2009 Supervision of Other High-Risk [O09.8*11/06/2008 03/11/2009 Depression with anxiety [F41.8] 08/19/2010 Arthritis [M19.90] Menometrorrhagia [N92.1] 11/24/2011 Encounter Status:Closed by MEL ANDERSEN on 09/20/22 [facility] XR CHEST 2V FRONTAL/LATon XR CHEST 2V FRONTAL/LAT * * *Final Report* * * DATE OF EXAM: Sep 20 2022 5:17PM WOX 5291 - XR CHEST 2V FRONTAL/LAT / PROCEDURE REASON: Bronchitis * * * * Physician Interpretation * * * * EXAMINATION: CHEST RADIOGRAPH (2 VIEW FRONTAL and LATERAL) CLINICAL HISTORY: Bronchitis MQ: XC2_6 EXAM DATE/TIME: 09/20/2022 5:17 PM COMPARISON: No relevant prior studies available. RESULT: Lines, tubes, and devices: None. Lungs and pleura: No consolidation. No lung mass. No pleural effusion. No pneumothorax. Cardiomediastinal silhouette: Normal cardiomediastinal silhouette. Bones and soft tissues: Degenerative changes are present within the thoracic spine. IMPRESSION: No acute radiographic abnormality. Necktie Turner: [facility] Transcribe Date/Time: Sep 20 2022 5:57P Dictated by : LYUDMILA EDWARDS MD This examination was interpreted and the report reviewed and electronically signed by: LYUDMILA EDWARDS MD on Sep 20 2022 6:00PM EST [id number] N Normal [facility] XR Chest PA and Lateralon IMPRESSION: No acute radiographic abnormality. Necktie Turner: [facility] Transcribe Date/Time: Sep 20 2022 5:57P Dictated by : LYUDMILA EDWARDS MD This examination was interpreted and the report reviewed and electronically signed by: LYUDMILA EDWARDS MD on Sep 20 2022 6:00PM EST DIVISION OF RADIOLOGY * * *Final Report* * * DATE OF EXAM: Sep 20 2022 5:17PM WOX 5291 - XR CHEST 2V FRONTAL/LAT / PROCEDURE REASON: Bronchitis * * * * Physician Interpretation * * * * EXAMINATION: CHEST RADIOGRAPH (2 VIEW FRONTAL & LATERAL) CLINICAL HISTORY: Bronchitis MQ: XC2_6 EXAM DATE/TIME: 09/20/2022 5:17 PM COMPARISON: No relevant prior studies available. RESULT: Lines, tubes, and devices: None. Lungs and pleura: No consolidation. No lung mass. No pleural effusion. No pneumothorax. Cardiomediastinal silhouette: Normal cardiomediastinal silhouette. Bones and soft tissues: Degenerative changes are present within the thoracic spine. DIVISION OF RADIOLOGY Provider, [facility] - 09/20/2022 * * *Final Report* * * DATE OF EXAM: Sep 20 2022 5:17PM WOX 5291 - XR CHEST 2V FRONTAL/LAT / PROCEDURE REASON: Bronchitis * * * * Physician Interpretation * * * * EXAMINATION: CHEST RADIOGRAPH (2 VIEW FRONTAL & LATERAL) CLINICAL HISTORY: Bronchitis MQ: XC2_6 EXAM DATE/TIME: 09/20/2022 5:17 PM COMPARISON: No relevant prior studies available. RESULT: Lines, tubes, and devices: None. Lungs and pleura: No consolidation. No lung mass. No pleural effusion. No pneumothorax. Cardiomediastinal silhouette: Normal cardiomediastinal silhouette. Bones and soft tissues: Degenerative changes are present within the thoracic spine. IMPRESSION IMPRESSION: No acute radiographic abnormality. Necktie Turner: [facility] Transcribe Date/Time: Sep 20 2022 5:57P Dictated by : LYUDMILA EDWARDS MD This examination was interpreted and the report reviewed and electronically signed by: LYUDMILA EDWARDS MD on Sep 20 2022 6:00PM EST [facility] Radiology Study observation (narrative) [facility] XR Chest PA and LateralOrder ed By: [facility] Provider on 09-20-2022 [facility] .Auto Diffon 11-28-2020 Basophil, Absolute 0.00 10 3/mcL Normal 0.00-0.19 On license of [facility] ([place]) Comment on above: Performed By: #### C BC, ADIFF, ANEU, BMP #### [address] [address] #### GFR #### [address] [address] Basophils/100 WBC (Bld) 0.2 % Normal 0.0-2.5 [facility] ([place]) Comment on above: Performed By: #### C BC, ADIFF, ANEU, BMP #### [address] [address] #### GFR #### [address] [address] Eosinophil, Absolute 0.00 10 3/mcL Normal 0.00-0.40 A [facility] ([place]) Comment on above: Performed By: #### C BC, ADIFF, ANEU, BMP #### [address] [address] #### GFR #### [address] [address] Eosinophils/100 WBC (Bld) 0.0 % Normal 0.0-7.0 [facility] ([place]) Comment on above: Performed By: #### C BC, ADIFF, ANEU, BMP #### [address] [address] #### GFR #### [address] [address] Lymphocyte, Absolute 1.50 10 3/mcL Normal 0.77-3.85 A [facility] ([place]) Comment on above: Performed By: #### C BC, ADIFF, ANEU, BMP #### [address] [address] #### GFR #### [address] [address] Lymphocytes/100 WBC (Bld) 21.0 % Normal 10.0-50.0 [facility] ([place]) Comment on above: Performed By: #### C BC, ADIFF, ANEU, BMP #### [address] [address] #### GFR #### [address] [address] Monocyte, Absolute 0.60 10 3/mcL Normal 0.15-1.00 On license of [facility] ([place]) Comment on above: Performed By: #### C BC, ADIFF, ANEU, BMP #### [address] [address] #### GFR #### [address] [address] Monocytes/100 WBC (Bld) 8.7 % Normal 1.7-13.0 [facility] ([place]) Comment on above: Performed By: #### C BC, ADIFF, ANEU, BMP #### [address] [address] #### GFR #### [address] [address] Neutrophils/100 WBC (Bld) 70.1 % Normal 37.0-80.0 [facility] ([place]) Comment on above: Performed By: #### C VANDANA MARTINO, ANEU, BMP #### [address] [place], [place] [address] #### GFR #### [address] [address] .GFRon 11-28-2020 GFR 101 ml/min/1.73sqm Normal [facility] ([place]) Comment on above: Result Comment: GFR Population mean for , Non- Americans Ages 20-29 = 116 mL/min/1.73 sq.m. Ages 30-39 = 107 mL/min/1.73 sq.m. Ages 40-49 = 99 mL/min/1.73 sq.m. Ages 50-59 = 93 mL/min/1.73 sq.m. Ages 60-69 = 85 mL/min/1.73 sq.m. Ages 70+ = 75 mL/min/1.73 sq.m. Chronic Kidney Disease: Less than 60 mL/min/1.73 square meters End Stage Renal Disease: Less than 15 mL/min/1.73 square meters Performed By: #### C VANDANA MARTINO, ANEU, BMP #### [address] [place], [place] [address] #### GFR #### [address] [address] GFR Non- 83 ml/min/1.73sqm Normal [facility] ([place]) Comment on above: Result Comment: GFR Population mean for , Non- Americans Ages 20-29 = 116 mL/min/1.73 sq.m. Ages 30-39 = 107 mL/min/1.73 sq.m. Ages 40-49 = 99 mL/min/1.73 sq.m. Ages 50-59 = 93 mL/min/1.73 sq.m. Ages 60-69 = 85 mL/min/1.73 sq.m. Ages 70+ = 75 mL/min/1.73 sq.m. Chronic Kidney Disease: Less than 60 mL/min/1.73 square meters End Stage Renal Disease: Less than 15 mL/min/1.73 square meters Performed By: #### C VANDANA MARTINO ANEU, BMP #### [place] [address] #### GFR #### [address] [address] .NEUABSon 11-28-2020 Neutrophil, Absolute 4.80 10 3/mcL Normal 2.85-6.16 A [facility] ([place]) Comment on above: Performed By: #### C VANDANA MARTINO ANEU, BMP #### [place] [address] #### GFR #### [place] [address] APTTon 11-28-2020 aPTT Coag (Bld) [Time] 25.1 s Normal 23.7-37.6 [facility] ([place]) Comment on above: Result Comment: For Heparin anticoagulation therapy, the recommended therapeutic range is: 53.6-87.4 seconds (1.5 - 2.5 the normal plasma mean). Patients on heparin therapy may have an extreme result. Performed By: #### C VANDANA MARTINO ANEU, BMP #### [place] [address] #### GFR #### [place] [address] Heparin dose (APTT) Unknown Normal [facility] ([place]) Comment on above: Performed By: #### C VANDANA MARTINO ANEU, BMP #### [place] [address] #### GFR #### [address] [address] CBCon 11-28-2020 Erythrocyte distribution width (RBC) [Ratio] 13.0 % Normal 11.5-14.5 [facility] ([place]) Comment on above: Performed By: #### C VANDANA MARTINO ANEU, BMP #### [place] [address] #### GFR #### [place] [address] Hematocrit (Bld) [Volume fraction] 37.9 % Normal 37.0-47.0 [facility] ([place]) Comment on above: Performed By: #### C BC, ADDOMINGUEZ, ANEU, BMP #### [address] [address] #### GFR #### [place] [address] Hgb 13.2 G/dL Normal 12.0-16.0 [facility] ([place]) Comment on above: Performed By: #### C GUNNER, VANDANA, ANEU, BMP #### [place] [address] #### GFR #### [place] [address] MCH (RBC) [Entitic mass] 29.5 pg Normal 27.0-31.2 [facility] ([place] Comment on above: Performed By: #### C GUNNER, VANDANA, ANEU, BMP #### [place] [address] #### GFR #### [place] [address] MCHC 34.9 G/dL Normal 33.0-37.0 [facility] ([place] Comment on above: Performed By: #### C GUNNER, ADDOMINGUEZ, ANEU, BMP #### [place] [address] #### GFR #### [place] [address] MCV (RBC) [Entitic vol] 84.6 fL Normal 80.0-94.0 [facility] ([place] Comment on above: Performed By: #### C GUNNER, ADDOMINGUEZ, ANEU, BMP #### [place] [address] #### GFR #### [place] [address] Platelet 378 10 3/mcL Normal 130-400 [facility] ([place]) Comment on above: Performed By: #### C BC, ADDOMINGUEZ, ANEU, BMP #### [address] [address] #### GFR #### [address] [address] Platelet mean volume (Bld) [Entitic vol] 7.0 fL Low 7.4-10.4 [facility] ([place]) Comment on above: Performed By: #### C BC, ADIFF, ANEU, BMP #### [place] [address] #### GFR #### [place] [address] RBC 4.48 10 6/mcL Normal 4.20-5.40 [facility] ([place] Comment on above: Performed By: #### C BC, ADDOMINGUEZ, ANEU, BMP #### [place] [address] #### GFR #### [place] [address] WBC 6.90 10 3/mcL Normal 4.60-10.80 [facility] ([place] Comment on above: Performed By: #### C GUNNER, VANDANA, ANEU, BMP #### [place] [address] #### GFR #### [place] [address] CMPon 11-28-2020 Albumin Level 2.5 G/dL Low 3.5-5.0 [facility] ([place] Comment on above: Performed By: #### C BC, ADIFF, ANEU, BMP #### [place] [address] #### GFR #### [place] [address] Albumin/Globulin [Mass ratio] 0.7 {ratio} Low 1.1-2.5 [facility] ([place] Comment on above: Performed By: #### C BC, ADIFF, ANEU, BMP #### [place] [address] #### GFR #### [address] [address] ALP [Catalytic activity/Vol] 66 U/L Normal 40-135 [facility] ([place]) Comment on above: Performed By: #### C BC, ADIFF, ANEU, BMP #### [address] [address] #### GFR #### [address] [address] ALT [Catalytic activity/Vol] 102 U/L High 14-59 [facility] ([place] Comment on above: Performed By: #### C BC, ADIFF, ANEU, BMP #### [place] [address] #### GFR #### [address] [address] AST [Catalytic activity/Vol] 22 U/L Normal 10-40 [facility] ([place] Comment on above: Performed By: #### C BC, ADIFF, ANEU, BMP #### [place] [address] #### GFR #### [address] [address] Bili Total 0.2 mg/dL Normal 0.2-1.0 [facility] ([place]) Comment on above: Result Comment: Use of this assay is not recommended for patients undergoing treatment with eltrombopag due to the potential for falsely elevated results. Performed By: #### C BC, ADIFF, ANEU, BMP #### [place] [address] #### GFR #### [address] [address] BUN/Creatinine Ratio 16 ratio Normal 7-27 [facility] ([place]) Comment on above: Performed By: #### C BC, ADIFF, ANEU, BMP #### [address] [address] [address] #### GFR #### [address] [address] Calcium [Mass/Vol] 8.5 mg/dL Normal 8.4-10.2 [facility] ([place]) Comment on above: Performed By: #### C BC, ADIFF, ANEU, BMP #### [address] [address] #### GFR #### [address] [address] Chloride [Moles/Vol] 104 mmol/L Normal 98-107 [facility] ([place]) Comment on above: Performed By: #### C BC, ADIFF, ANEU, BMP #### [address] [address] #### GFR #### [address] [address] CO2 [Moles/Vol] 28 mmol/L Normal 22-29 [facility] ([place]) Comment on above: Performed By: #### C BC, ADIFF, ANEU, BMP #### [place] [address] #### GFR #### [address] [address] Creatinine [Mass/Vol] 0.75 mg/dL Normal 0.55-1.02 On license of [facility] ([place]) Comment on above: Performed By: #### C BC, ADIFF, ANEU, BMP #### [address] [address] #### GFR #### [address] [address] Electrolyte Balance 7.0 mEq/L Normal [facility] ([place]) Comment on above: Performed By: #### C BC, ADIFF, ANEU, BMP #### [address] [address] #### GFR #### [address] [address] Globulin 3.4 G/dL Normal [facility] ([place]) Comment on above: Performed By: #### C BC, ADIFF, ANEU, BMP #### [address] [address] #### GFR #### [address] [address] Glucose [Mass/Vol] 104 mg/dL Normal 70-105 [facility] ([place]) Comment on above: Performed By: #### C BC, ADIFF, ANEU, BMP #### [address] [address] #### GFR #### [address] [address] Potassium [Moles/Vol] 3.7 mmol/L Normal 3.5-5.1 On license of [facility] ([place]) Comment on above: Performed By: #### C BC, ADIFF, ANEU, BMP #### [address] [address] #### GFR #### [address] [address] Sodium [Moles/Vol] 139 mmol/L Normal 136-145 [facility] ([place]) Comment on above: Performed By: #### C BC, ADIFF, ANEU, BMP #### [address] [address] #### GFR #### [address] [address] Total Protein 5.9 G/dL Low 6.4-8.2 [facility] ([place]) Comment on above: Performed By: #### C BC, ADIFF, ANEU, BMP #### [address] [address] #### GFR #### [address] [address] Urea nitrogen [Mass/Vol] 12 mg/dL Normal 7-18 [facility] ([place]) Comment on above: Performed By: #### C BC, ADIFF, ANEU, BMP #### [address] [address] #### GFR #### [address] [address] CRPon 11-28-2020 C-Reactive Protein 2.0 mg/dL High 0.0-0.9 [facility] Comment on above: Performed By: #### C BC, ADIFF, ANEU, BMP #### [address] [address] #### GFR #### [place] [address] [place] [address] DIMERon 11-28-2020 D-Dimer 234 ng/mL D-DU High 0-230 [facility] ([place]) Comment on above: Result Comment: The result of the D-Dimer test should be evaluated in the context of all the clinical and laboratory data available. In those instances where the laboratory result does not agree with the clinical evaluation, additional tests should be performed accordingly. If the D-Dimer result is used to exclude DVT or PE, the recommended cutoff value is less than 230 ng/mL. The D-Dimer result should not be used alone to rule in DVT/PE, but should be used in conjunction with a clinical pretest probability (PTP)assessment model to exclude venous thromboembolism (VTE) in outpatients suspected of deep venous thrombosis (DVT) and pulmonary embolism (PE). Performed By: #### C RP #### [address] [address] Frank 11-28-2020 Ferritin [Mass/Vol] 397.4 ng/mL High 8.0-252.0 [facility]) Comment on above: Performed By: #### C RP #### [address] [address] FIBon 11-28-2020 Fibrinogen 604 mg/dL Normal 334-713 [facility]) Comment on above: Performed By: #### C RP #### [address] [address] PROon 11-28-2020 INR Coag (PPP) [Relative time] 1.1 {INR} Normal 0.9-1.2 [facility] ([place]) Comment on above: Result Comment: Ruiz dard Dose 2.0 - 3.0 High Dose 2.5 - 3.5 The recommended therapeutic range for oral anticoagulant therapy is: LOW RISK: Prophylaxis of venous thrombosis INR: 2.0 - 3.0 Treatment of pulmonary embolism 2.0 - 3.0 Prevention of systemic embolism 2.0 - 3.0 HIGH RISK: Mechanical prosthetic valves 2.5 - 3.5 Performed By: #### C RP #### [place] [id number] PT Coag (PPP) [Time] 12.7 s Normal 9.7-14.3 [facility] ([place]) Comment on above: Performed By: #### C RP #### [place] [address] .Auto Diffon 11-27-2020 Basophil, Absolute 0.00 10 3/mcL Normal 0.00-0.19 On license of [facility] ([place]) Comment on above: Performed By: #### C VANDANA MARTINO ANEU, BMP #### [place] [address] #### GFR #### [address] [address] Basophils/100 WBC (Bld) 0.5 % Normal 0.0-2.5 [facility] ([place]) Comment on above: Performed By: #### C BC ADDOMINGUEZ, ANEU, BMP #### [place] [address] #### GFR #### [address] [address] Eosinophil, Absolute 0.00 10 3/mcL Normal 0.00-0.40 [facility] ([place]) Comment on above: Performed By: #### C BC ADIFF, ANEU, BMP #### [place] [address] #### GFR #### [address] [address] Eosinophils/100 WBC (Bld) 0.1 % Normal 0.0-7.0 [facility] ([place]) Comment on above: Performed By: #### C BC, ADIFF, ANEU, BMP #### [place] [address] #### GFR #### [address] [address] Lymphocyte, Absolute 1.70 10 3/mcL Normal 0.77-3.85 [facility] ([place]) Comment on above: Performed By: #### C BC, ADIFF, ANEU, BMP #### [address] [address] #### GFR #### [address] [address] Lymphocytes/100 WBC (Bld) 17.3 % Normal 10.0-50.0 [facility] ([place]) Comment on above: Performed By: #### C BC, ADIFF, ANEU, BMP #### [address] [address] #### GFR #### [address] [address] Monocyte, Absolute 0.70 10 3/mcL Normal 0.15-1.00 On license of [facility] ([place]) Comment on above: Performed By: #### C BC, ADIFF, ANEU, BMP #### [place] [address] #### GFR #### [address] [address] Monocytes/100 WBC (Bld) 7.3 % Normal 1.7-13.0 [facility] ([place]) Comment on above: Performed By: #### C BC, ADIFF, ANEU, BMP #### [address] [address] #### GFR #### [address] [address] Neutrophils/100 WBC (Bld) 74.8 % Normal 37.0-80.0 [facility] ([place]) Comment on above: Performed By: #### C BC, ADIFF, ANEU, BMP #### [address] [address] #### GFR #### [address] [address] .GFRon 11-27-2020 GFR Non- 86 ml/min/1.73sqm Normal [facility] ([place]) Comment on above: Result Comment: GFR Population mean for , Non- Americans Ages 20-29 = 116 mL/min/1.73 sq.m. Ages 30-39 = 107 mL/min/1.73 sq.m. Ages 40-49 = 99 mL/min/1.73 sq.m. Ages 50-59 = 93 mL/min/1.73 sq.m. Ages 60-69 = 85 mL/min/1.73 sq.m. Ages 70+ = 75 mL/min/1.73 sq.m. Chronic Kidney Disease: Less than 60 mL/min/1.73 square meters End Stage Renal Disease: Less than 15 mL/min/1.73 square meters Performed By: #### C BC, ADIFF, ANEU, BMP #### [address] [address] #### GFR #### [address] [address] GFR 104 ml/min/1.73sqm Normal [facility] ([place]) Comment on above: Result Comment: GFR Population mean for , Non- Americans Ages 20-29 = 116 mL/min/1.73 sq.m. Ages 30-39 = 107 mL/min/1.73 sq.m. Ages 40-49 = 99 mL/min/1.73 sq.m. Ages 50-59 = 93 mL/min/1.73 sq.m. Ages 60-69 = 85 mL/min/1.73 sq.m. Ages 70+ = 75 mL/min/1.73 sq.m. Chronic Kidney Disease: Less than 60 mL/min/1.73 square meters End Stage Renal Disease: Less than 15 mL/min/1.73 square meters Performed By: #### C BC, ADIFF, ANEU, BMP #### [address] [address] #### GFR #### [address] [address] .Manual Diffon 11-27-2020 Basophil %, Manual 0.0 % Normal 0.0-2.5 [facility] ([place]) Comment on above: Performed By: #### C BC, ADIFF, ANEU, BMP #### [address] [address] #### GFR #### [address] [address] Eosinophil %, Manual 0.0 % Normal 0.0-7.0 [facility] ([place]) Comment on above: Performed By: #### C BC, ADIFF, ANEU, BMP #### [place] [address] #### GFR #### [place] [address] Lymphocyte %, Manual 22.0 % Normal 10.0-50.0 [facility] ([place]) Comment on above: Performed By: #### C BC, ADIFF, ANEU, BMP #### [place] [address] #### GFR #### [place] [address] Monocyte %, Manual 8.0 % Normal 1.7-13.0 [facility] ([place]) Comment on above: Performed By: #### C BC, ADIFF, ANEU, BMP #### [place] [address] #### GFR #### [place] [address] Neutrophil %, Manual 70.0 % Normal 37.0-80.0 [facility] ([place]) Comment on above: Performed By: #### C BC, ADIFF, ANEU, BMP #### [place] [address] #### GFR #### [address] [address] .Morphon 11-27-2020 Echinocytes Few Normal [facility] ([place]) Comment on above: Performed By: #### C BC, ADIFF, ANEU, BMP #### [place] [address] #### GFR #### [place] [address] Platelet Estimate Normal Normal [facility] ([place]) Comment on above: Performed By: #### C VANDANA MARTINO ANEU, BMP #### [address] [address] #### GFR #### [address] [address] Poik Slight Normal [facility] ([place] Comment on above: Performed By: #### C VANDANA MARTINO ANEU, BMP #### [place] [address] #### GFR #### [place] [address] .NEUABSon 11-27-2020 Neutrophil, Absolute 7.20 10 3/mcL High 2.85-6.16 [facility] ([place]) Comment on above: Performed By: #### C VANDANA MARTINO ANEU, BMP #### [place] [address] #### GFR #### [place] [address] APTTon 11-27-2020 aPTT Coag (Bld) [Time] 23.4 s Low 23.7-37.6 [facility] ([place]) Comment on above: Result Comment: For Heparin anticoagulation therapy, the recommended therapeutic range is: 53.6-87.4 seconds (1.5 - 2.5 the normal plasma mean). Patients on heparin therapy may have an extreme result. Performed By: #### C VANDANA MARTINO ANEU, BMP #### [place] [address] #### GFR #### [place] [address] Heparin dose (APTT) Unknown Normal [facility] ([place]) Comment on above: Performed By: #### C VANDANA MARTINO ANEU, BMP #### [place] [address] #### GFR #### [place] [address] CBCon 11-27-2020 Erythrocyte distribution width (RBC) [Ratio] 13.1 % Normal 11.5-14.5 [facility] ([place]) Comment on above: Performed By: #### C BC, ADIFF, ANEU, BMP #### [address] [address] #### GFR #### [place] [address] Hematocrit (Bld) [Volume fraction] 37.8 % Normal 37.0-47.0 [facility] ([place] Comment on above: Performed By: #### C BC, ADIFF, ANEU, BMP #### [place] [address] #### GFR #### [place] [address] Hgb 12.8 G/dL Normal 12.0-16.0 [facility] ([place] Comment on above: Performed By: #### C BC, ADIFF, ANEU, BMP #### [place] [address] #### GFR #### [place] [address] MCH (RBC) [Entitic mass] 29.3 pg Normal 27.0-31.2 [facility] ([place] Comment on above: Performed By: #### C BC, ADIFF, ANEU, BMP #### [place] [address] #### GFR #### [place] [address] MCHC 33.8 G/dL Normal 33.0-37.0 [facility] ([place] Comment on above: Performed By: #### C BC, ADIFF, ANEU, BMP #### [place] [address] #### GFR #### [place] [id number] MCV (RBC) [Entitic vol] 86.8 fL Normal 80.0-94.0 [facility] ([place] Comment on above: Performed By: #### C BC, ADIFF, ANEU, BMP #### [place] [address] #### GFR #### [place] [address] Platelet 334 10 3/mcL Normal 130-400 [facility] ([place] Comment on above: Performed By: #### C BC, ADIFF, ANEU, BMP #### [place] [address] #### GFR #### [place] [address] Platelet mean volume (Bld) [Entitic vol] 7.4 fL Normal 7.4-10.4 [facility] ([place]) Comment on above: Performed By: #### C BC, ADDOMINGUEZ, ANEU, BMP #### [place] [address] #### GFR #### [place] [address] RBC 4.36 10 6/mcL Normal 4.20-5.40 [facility] ([place] Comment on above: Performed By: #### C BC, ADIFF, ANEU, BMP #### [place] [address] #### GFR #### [place] [address] WBC 9.60 10 3/mcL Normal 4.60-10.80 [facility] ([place] Comment on above: Performed By: #### C BC, ADDOMINGUEZ, ANEU, BMP #### [place] [address] #### GFR #### [place] [address] CKon 11-27-2020 CK [Catalytic activity/Vol] 25 U/L Low 26-192 [facility] ([place] Comment on above: Performed By: #### C BC, ADIFF, ANEU, BMP #### [place] [address] #### GFR #### [place] [address] CMPon 09-02-2021 Albumin Level 2.4 G/dL Low 3.5-5.0 [facility] ([place]) Comment on above: Performed By: #### C BC, ADIFF, ANEU, BMP #### [address] [address] #### GFR #### [address] [address] Albumin/Globulin [Mass ratio] 0.7 {ratio} Low 1.1-2.5 [facility] ([place] Comment on above: Performed By: #### C BC, ADIFF, ANEU, BMP #### [address] [address] #### GFR #### [address] [address] ALP [Catalytic activity/Vol] 63 U/L Normal 40-135 [facility] ([place] Comment on above: Performed By: #### C BC, ADIFF, ANEU, BMP #### [place] [address] #### GFR #### [address] [address] ALT [Catalytic activity/Vol] 124 U/L High 14-59 [facility] ([place]) Comment on above: Performed By: #### C BC, ADIFF, ANEU, BMP #### [address] [address] #### GFR #### [address] [address] AST [Catalytic activity/Vol] 43 U/L High 10-40 [facility] ([place]) Comment on above: Performed By: #### C BC, ADIFF, ANEU, BMP #### [place] [address] #### GFR #### [address] [address] Bili Total 0.2 mg/dL Normal 0.2-1.0 [facility] ([place]) Comment on above: Result Comment: Use of this assay is not recommended for patients undergoing treatment with eltrombopag due to the potential for falsely elevated results. Performed By: #### C BC, ADIFF, ANEU, BMP #### [address] [address] #### GFR #### [address] [address] BUN/Creatinine Ratio 23 ratio Normal 7-27 [facility] ([place]) Comment on above: Performed By: #### C BC, ADIFF, ANEU, BMP #### [address] [address] #### GFR #### [address] [address] Calcium [Mass/Vol] 8.5 mg/dL Normal 8.4-10.2 [facility] ([place]) Comment on above: Performed By: #### C BC, ADIFF, ANEU, BMP #### [address] [address] #### GFR #### [place] [address] Chloride [Moles/Vol] 103 mmol/L Normal 98-107 [facility] ([place]) Comment on above: Performed By: #### C BC, ADIFF, ANEU, BMP #### [address] [address] #### GFR #### [address] [address] CO2 [Moles/Vol] 27 mmol/L Normal 22-29 [facility] ([place]) Comment on above: Performed By: #### C BC, ADIFF, ANEU, BMP #### [address] [address] #### GFR #### [address] [address] Creatinine [Mass/Vol] 0.73 mg/dL Normal 0.55-1.02 On license of [facility] ([place]) Comment on above: Performed By: #### C BC, ADIFF, ANEU, BMP #### [address] [address] #### GFR #### [address] [address] Electrolyte Balance 8.0 mEq/L Normal [facility] ([place]) Comment on above: Performed By: #### C BC, ADIFF, ANEU, BMP #### [address] [address] #### GFR #### [address] [address] Globulin 3.5 G/dL Normal [facility] ([place] Comment on above: Performed By: #### C BC, ADIFF, ANEU, BMP #### [address] [address] #### GFR #### [address] [address] Glucose [Mass/Vol] 113 mg/dL High 70-105 [facility] ([place]) Comment on above: Performed By: #### C BC, ADDOMINGUEZ, ANEU, BMP #### [address] [address] #### GFR #### [address] [address] Potassium [Moles/Vol] 3.9 mmol/L Normal 3.5-5.1 On license of [facility] ([place]) Comment on above: Performed By: #### C BC, ADIFF, ANEU, BMP #### [address] [address] #### GFR #### [address] [address] Sodium [Moles/Vol] 138 mmol/L Normal 136-145 [facility] ([place]) Comment on above: Performed By: #### C BC, ADIFF, ANEU, BMP #### [address] [address] #### GFR #### [address] [address] Total Protein 5.9 G/dL Low 6.4-8.2 [facility] ([place] Comment on above: Performed By: #### C BC, ADIFF, ANEU, BMP #### [address] [address] #### GFR #### [place] [address] Urea nitrogen [Mass/Vol] 17 mg/dL Normal 7-18 [facility] ([place] Comment on above: Performed By: #### C BC, ADIFF, ANEU, BMP #### [address] [address] #### GFR #### [place] [id number] CRPon 11-27-2020 C-Reactive Protein 3.4 mg/dL High 0.0-0.9 [facility] ([place]) Comment on above: Performed By: #### C BC, ADIFF, ANEU, BMP #### [place] [address] #### GFR #### [place] [address] DIMERon 11-27-2020 D-Dimer 278 ng/mL D-DU High 0-230 [facility] ([place]) Comment on above: Result Comment: The result of the D-Dimer test should be evaluated in the context of all the clinical and laboratory data available. In those instances where the laboratory result does not agree with the clinical evaluation, additional tests should be performed accordingly. If the D-Dimer result is used to exclude DVT or PE, the recommended cutoff value is less than 230 ng/mL. The D-Dimer result should not be used alone to rule in DVT/PE, but should be used in conjunction with a clinical pretest probability (PTP)assessment model to exclude venous thromboembolism (VTE) in outpatients suspected of deep venous thrombosis (DVT) and pulmonary embolism (PE). Performed By: #### C BC, ADIFF, ANEU, BMP #### [place] [address] #### GFR #### [place] [address] Frank 11-27-2020 Ferritin [Mass/Vol] 506.1 ng/mL High 8.0-252.0 [facility] ([place]) Comment on above: Performed By: #### C BC, ADIFF, ANEU, BMP #### [place] [address] #### GFR #### [place] [address] FIBon 11-27-2020 Fibrinogen 776 mg/dL High 334-713 [facility] ([place] Comment on above: Performed By: #### C BC, VANDANA, ANEU, BMP #### [place] [address] #### GFR #### [place] [address] LDHon 11-27-2020 LDH 199 U/L Normal 81-234 [facility] ([place] Comment on above: Performed By: #### C VANDANA MARTINO ANEU, BMP #### [place] [address] #### GFR #### [place] [address] MGon 11-27-2020 Magnesium [Mass/Vol] 2.0 mg/dL Normal 1.8-2.4 [facility] ([place]) Comment on above: Performed By: #### C VANDANA MARTINO ANEU, BMP #### [place] [address] #### GFR #### [place] [address] PROon 11-27-2020 INR Coag (PPP) [Relative time] 1.2 {INR} Normal 0.9-1.2 [facility] ([place]) Comment on above: Result Comment: Ruiz dard Dose 2.0 - 3.0 High Dose 2.5 - 3.5 The recommended therapeutic range for oral anticoagulant therapy is: LOW RISK: Prophylaxis of venous thrombosis INR: 2.0 - 3.0 Treatment of pulmonary embolism 2.0 - 3.0 Prevention of systemic embolism 2.0 - 3.0 HIGH RISK: Mechanical prosthetic valves 2.5 - 3.5 Performed By: #### C BC, ADIFF, ANEU, BMP #### [place] [address] #### GFR #### [address] [address] PT Coag (PPP) [Time] 13.3 s Normal 9.7-14.3 [facility] ([place]) Comment on above: Performed By: #### C BC, ADIFF, ANEU, BMP #### [address] [address] #### GFR #### [address] [address] .Auto Diffon 11-26-2020 Basophil, Absolute 0.00 10 3/mcL Normal 0.00-0.19 On license of [facility] ([place]) Comment on above: Performed By: #### C BC ADDOMINGUEZ, ANEU, BMP #### [address] [address] #### GFR #### [address] [address] Basophils/100 WBC (Bld) 0.2 % Normal 0.0-2.5 [facility] ([place] Comment on above: Performed By: #### C BC, ADDOMINGUEZ, ANEU, BMP #### [place] [address] #### GFR #### [address] [address] Eosinophil, Absolute 0.00 10 3/mcL Normal 0.00-0.40 [facility] ([place]) Comment on above: Performed By: #### C BC, ADIFF, ANEU, BMP #### [place] [address] #### GFR #### [address] [address] Eosinophils/100 WBC (Bld) 0.0 % Normal 0.0-7.0 [facility] ([place] Comment on above: Performed By: #### C BC, ADIFF, ANEU, BMP #### [address] [address] #### GFR #### [facility] [address] [place], [place] [address] Lymphocyte, Absolute 0.90 10 3/mcL Normal 0.77-3.85 [facility] ([place]) Comment on above: Performed By: #### C BC, ADIFF, ANEU, BMP #### [address] [address] #### GFR #### [address] [address] Lymphocytes/100 WBC (Bld) 18.1 % Normal 10.0-50.0 [facility] ([place]) Comment on above: Performed By: #### C BC, ADIFF, ANEU, BMP #### [address] [address] #### GFR #### [address] [address] Monocyte, Absolute 0.40 10 3/mcL Normal 0.15-1.00 On license of [facility] ([place]) Comment on above: Performed By: #### C BC, ADIFF, ANEU, BMP #### [place] [address] #### GFR #### [address] [address] Monocytes/100 WBC (Bld) 7.3 % Normal 1.7-13.0 [facility] ([place] Comment on above: Performed By: #### C BC, ADIFF, ANEU, BMP #### [address] [address] #### GFR #### [address] [address] Neutrophils/100 WBC (Bld) 74.4 % Normal 37.0-80.0 [facility] ([place]) Comment on above: Performed By: #### C BC, ADIFF, ANEU, BMP #### [address] [address] #### GFR #### [address] [address] .GFRon 11-26-2020 GFR 96 ml/min/1.73sqm Normal [facility] ([place]) Comment on above: Result Comment: GFR Population mean for , Non- Americans Ages 20-29 = 116 mL/min/1.73 sq.m. Ages 30-39 = 107 mL/min/1.73 sq.m. Ages 40-49 = 99 mL/min/1.73 sq.m. Ages 50-59 = 93 mL/min/1.73 sq.m. Ages 60-69 = 85 mL/min/1.73 sq.m. Ages 70+ = 75 mL/min/1.73 sq.m. Chronic Kidney Disease: Less than 60 mL/min/1.73 square meters End Stage Renal Disease: Less than 15 mL/min/1.73 square meters Performed By: #### C BC, ADIFF, ANEU, BMP #### [address] [address] #### GFR #### [address] [address] GFR Non- 80 ml/min/1.73sqm Normal [facility] ([place] Comment on above: Result Comment: GFR Population mean for , Non- Americans Ages 20-29 = 116 mL/min/1.73 sq.m. Ages 30-39 = 107 mL/min/1.73 sq.m. Ages 40-49 = 99 mL/min/1.73 sq.m. Ages 50-59 = 93 mL/min/1.73 sq.m. Ages 60-69 = 85 mL/min/1.73 sq.m. Ages 70+ = 75 mL/min/1.73 sq.m. Chronic Kidney Disease: Less than 60 mL/min/1.73 square meters End Stage Renal Disease: Less than 15 mL/min/1.73 square meters Performed By: #### C BC, ADIFF, ANEU, BMP #### [address] [address] #### GFR #### [address] [address] .NEUABSon 11-26-2020 Neutrophil, Absolute 3.60 10 3/mcL Normal 2.85-6.16 A [facility] ([place]) Comment on above: Performed By: #### C BC, ADIFF, ANEU, BMP #### [place] [address] #### GFR #### [place] [address] APTTon 11-26-2020 aPTT Coag (Bld) [Time] 25.8 s Normal 23.7-37.6 [facility] ([place] Comment on above: Result Comment: For Heparin anticoagulation therapy, the recommended therapeutic range is: 53.6-87.4 seconds (1.5 - 2.5 the normal plasma mean). Patients on heparin therapy may have an extreme result. Performed By: #### C VANDANA MARTINO ANEU BMP #### [place] [address] #### GFR #### [place] [address] Heparin dose (APTT) Unknown Normal [facility] ([place]) Comment on above: Performed By: #### VANDANA ZAMORA ANEU BMP #### [place] [address] #### GFR #### [place] [address] CBCon 11-26-2020 Erythrocyte distribution width (RBC) [Ratio] 13.5 % Normal 11.5-14.5 [facility] [facility] ([place] Comment on above: Performed By: #### VANDANA ZAMORA ANEU, BMP #### [place] [address] #### GFR #### [place] [address] Hematocrit (Bld) [Volume fraction] 37.4 % Normal 37.0-47.0 [facility] ([place]) Comment on above: Performed By: #### VANDANA ZAMORA ANEU, BMP #### [place] [address] #### GFR #### [place] [address] Hgb 12.8 G/dL Normal 12.0-16.0 [facility] ([place] Comment on above: Performed By: #### C BC, ADIFF, ANEU, BMP #### [address] [address] #### GFR #### [address] [address] MCH (RBC) [Entitic mass] 29.2 pg Normal 27.0-31.2 [facility] ([place] Comment on above: Performed By: #### C BC, ADIFF, ANEU, BMP #### [place] [address] #### GFR #### [address] [address] MCHC 34.3 G/dL Normal 33.0-37.0 [facility] ([place] Comment on above: Performed By: #### C BC, ADIFF, ANEU, BMP #### [place] [address] #### GFR #### [place] [address] MCV (RBC) [Entitic vol] 85.2 fL Normal 80.0-94.0 [facility] ([place] Comment on above: Performed By: #### C BC, ADIFF, ANEU, BMP #### [place] [address] #### GFR #### [place] [address] Platelet 351 10 3/mcL Normal 130-400 [facility] ([place] Comment on above: Performed By: #### C BC, ADIFF, ANEU, BMP #### [place] [address] #### GFR #### [place] [address] Platelet mean volume (Bld) [Entitic vol] 7.4 fL Normal 7.4-10.4 [facility] ([place] Comment on above: Performed By: #### C BC, ADIFF, ANEU, BMP #### [place] [address] #### GFR #### [place] [address] RBC 4.39 10 6/mcL Normal 4.20-5.40 [facility] ([place] Comment on above: Performed By: #### C BC ADDOMINGUEZ, ANEU, BMP #### [address] [address] #### GFR #### [place] [address] WBC 4.90 10 3/mcL Normal 4.60-10.80 [facility] ([place] Comment on above: Performed By: #### C BC, ADDOMINGUEZ, ANEU, BMP #### [place] [address] #### GFR #### [place] [address] CKon 11-26-2020 CK [Catalytic activity/Vol] 37 U/L Normal 26-192 [facility] ([place] Comment on above: Performed By: #### C BCVANDANA, ANEU, BMP #### [place] [address] #### GFR #### [place] [address] CMPon 11-26-2020 Albumin Level 2.6 G/dL Low 3.5-5.0 [facility] ([place] Comment on above: Performed By: #### C VANDANA MARTINO ANEU, BMP #### [place] [address] #### GFR #### [place] [address] Albumin/Globulin [Mass ratio] 0.7 {ratio} Low 1.1-2.5 [facility] ([place] Comment on above: Performed By: #### C BC ADDOMINGUEZ, ANEU, BMP #### [place] [address] #### GFR #### [place] [address] ALP [Catalytic activity/Vol] 66 U/L Normal 40-135 [facility] ([place]) Comment on above: Performed By: #### C BC, ADIFF, ANEU, BMP #### [address] [address] #### GFR #### [address] [address] ALT [Catalytic activity/Vol] 72 U/L High 14-59 [facility] ([place] Comment on above: Performed By: #### C BC, ADIFF, ANEU, BMP #### [place] [address] #### GFR #### [place] [address] AST [Catalytic activity/Vol] 34 U/L Normal 10-40 [facility] ([place] Comment on above: Performed By: #### C BC, ADIFF, ANEU, BMP #### [place] [address] #### GFR #### [place] [address] Bili Total 0.3 mg/dL Normal 0.2-1.0 [facility] ([place] Comment on above: Result Comment: Use of this assay is not recommended for patients undergoing treatment with eltrombopag due to the potential for falsely elevated results. Performed By: #### C BC, ADIFF, ANEU, BMP #### [place] [address] #### GFR #### [place] [address] BUN/Creatinine Ratio 18 ratio Normal 7-27 [facility] ([place]) Comment on above: Performed By: #### C BC, ADIFF, ANEU, BMP #### [place] [address] #### GFR #### [place] [address] Calcium [Mass/Vol] 8.4 mg/dL Normal 8.4-10.2 [facility] ([place]) Comment on above: Performed By: #### C BC, ADIFF, ANEU, BMP #### [address] [address] #### GFR #### [address] [address] Chloride [Moles/Vol] 103 mmol/L Normal 98-107 [facility] ([place] Comment on above: Performed By: #### C BC, ADIFF, ANEU, BMP #### [address] [address] #### GFR #### [address] [address] CO2 [Moles/Vol] 26 mmol/L Normal 22-29 [facility] ([place] Comment on above: Performed By: #### C BC ADDOMINGUEZ, ANEU, BMP #### [address] [address] #### GFR #### [address] [address] Creatinine [Mass/Vol] 0.78 mg/dL Normal 0.55-1.02 On license of [facility] ([place]) Comment on above: Performed By: #### C BC, ADIFF, ANEU, BMP #### [address] [address] #### GFR #### [address] [address] Electrolyte Balance 11.0 mEq/L Normal [facility] ([place]) Comment on above: Performed By: #### C BC, ADIFF, ANEU, BMP #### [address] [address] #### GFR #### [address] [address] Globulin 3.6 G/dL Normal [facility] ([place] Comment on above: Performed By: #### C BC, ADIFF, ANEU, BMP #### [address] [address] #### GFR #### [address] [address] Glucose [Mass/Vol] 116 mg/dL High 70-105 [facility] ([place] Comment on above: Performed By: #### C BC, ADIFF, ANEU, BMP #### [address] [address] #### GFR #### [address] [address] Potassium [Moles/Vol] 3.9 mmol/L Normal 3.5-5.1 On license of [facility] ([place]) Comment on above: Performed By: #### C BC, ADIFF, ANEU, BMP #### [address] [address] #### GFR #### [address] [address] Sodium [Moles/Vol] 140 mmol/L Normal 136-145 [facility] ([place] Comment on above: Performed By: #### C BC, ADIFF, ANEU, BMP #### [place] [address] #### GFR #### [address] [address] Total Protein 6.2 G/dL Low 6.4-8.2 [facility] ([place] Comment on above: Performed By: #### C BC, ADIFF, ANEU, BMP #### [place] [address] #### GFR #### [address] [address] Urea nitrogen [Mass/Vol] 14 mg/dL Normal 7-18 [facility] ([place] Comment on above: Performed By: #### C BC, ADIFF, ANEU, BMP #### [address] [address] #### GFR #### [address] [address] CRPon 11-26-2020 C-Reactive Protein 8.4 mg/dL High 0.0-0.9 [facility] ([place] Comment on above: Performed By: #### C BC, ADIFF, ANEU, BMP #### [place] [address] #### GFR #### [address] [address] DIMERon 11-26-2020 D-Dimer 249 ng/mL D-DU High 0-230 [facility] ([place] Comment on above: Result Comment: The result of the D-Dimer test should be evaluated in the context of all the clinical and laboratory data available. In those instances where the laboratory result does not agree with the clinical evaluation, additional tests should be performed accordingly. If the D-Dimer result is used to exclude DVT or PE, the recommended cutoff value is less than 230 ng/mL. The D-Dimer result should not be used alone to rule in DVT/PE, but should be used in conjunction with a clinical pretest probability (PTP)assessment model to exclude venous thromboembolism (VTE) in outpatients suspected of deep venous thrombosis (DVT) and pulmonary embolism (PE). Performed By: #### C BC, ADIFF ANEU, BMP #### [place] [address] #### GFR #### [place] [address] Frank 11-26-2020 Ferritin [Mass/Vol] 896.9 ng/mL High 8.0-252.0 [facility] ([place]) Comment on above: Performed By: #### C BC ADIFF, ANEU, BMP #### [address] [address] #### GFR #### [place] [address] FIBon 11-26-2020 Fibrinogen 946 mg/dL High 334-713 [facility] ([place] Comment on above: Performed By: #### C BC, ADIFF, ANEU, BMP #### [place] [address] #### GFR #### [place] [address] LDHon 11-26-2020 LDH 261 U/L High 81-234 [facility] ([place] Comment on above: Performed By: #### C BC, ADIFF, ANEU, BMP #### [address] [address] #### GFR #### [place] [id number] MGon 11-26-2020 Magnesium [Mass/Vol] 2.2 mg/dL Normal 1.8-2.4 [facility] ([place] Comment on above: Performed By: #### C BC, ADIFF, ANEU, BMP #### [place] [address] #### GFR #### [place] [address] PROon 11-26-2020 INR Coag (PPP) [Relative time] 1.2 {INR} Normal 0.9-1.2 [facility] ([place] Comment on above: Result Comment: Ruiz dard Dose 2.0 - 3.0 High Dose 2.5 - 3.5 The recommended therapeutic range for oral anticoagulant therapy is: LOW RISK: Prophylaxis of venous thrombosis INR: 2.0 - 3.0 Treatment of pulmonary embolism 2.0 - 3.0 Prevention of systemic embolism 2.0 - 3.0 HIGH RISK: Mechanical prosthetic valves 2.5 - 3.5 Performed By: #### C BC, ADDOMINGUEZ, ANEU, BMP #### [place] [address] #### GFR #### [place] [address] PT Coag (PPP) [Time] 13.3 s Normal 9.7-14.3 [facility] ([place] Comment on above: Performed By: #### C BC, ADIFF, ANEU, BMP #### [place] [address] #### GFR #### [place] [address] .Auto Diffon 11-25-2020 Basophil, Absolute 0.00 10 3/mcL Normal 0.00-0.19 On license of [facility] ([place]) Comment on above: Performed By: #### C BC, ADIFF, ANEU, BMP #### [place] [address] #### GFR #### [address] [address] Basophils/100 WBC (Bld) 0.2 % Normal 0.0-2.5 [facility] ([place] Comment on above: Performed By: #### C BC, ADIFF, ANEU, BMP #### [place] [address] #### GFR #### [address] [address] Eosinophil, Absolute 0.00 10 3/mcL Normal 0.00-0.40 [facility] ([place]) Comment on above: Performed By: #### C BC, ADIFF, ANEU, BMP #### [place] [address] #### GFR #### [address] [address] Eosinophils/100 WBC (Bld) 0.1 % Normal 0.0-7.0 [facility] ([place] Comment on above: Performed By: #### C BC, ADIFF, ANEU, BMP #### [place] [address] #### GFR #### [address] [address] Lymphocyte, Absolute 0.50 10 3/mcL Low 0.77-3.85 [facility] ([place] Comment on above: Performed By: #### C BC, ADIFF, ANEU, BMP #### [place] [address] #### GFR #### [address] [address] Lymphocytes/100 WBC (Bld) 18.7 % Normal 10.0-50.0 [facility] ([place] Comment on above: Performed By: #### C BC, ADIFF, ANEU, BMP #### [place] [address] #### GFR #### [address] [address] Monocyte, Absolute 0.20 10 3/mcL Normal 0.15-1.00 On license of [facility] ([place]) Comment on above: Performed By: #### C BC, ADIFF, ANEU, BMP #### [address] [address] #### GFR #### [address] [address] Monocytes/100 WBC (Bld) 7.8 % Normal 1.7-13.0 [facility] ([place] Comment on above: Performed By: #### C BC, ADIFF, ANEU, BMP #### [address] [address] #### GFR #### [address] [address] Neutrophils/100 WBC (Bld) 73.2 % Normal 37.0-80.0 [facility] ([place] Comment on above: Performed By: #### C BC, ADIFF, ANEU, BMP #### [address] [address] #### GFR #### [address] [address] .GFRon 11-25-2020 GFR 101 ml/min/1.73sqm Normal [facility] ([place] Comment on above: Result Comment: GFR Population mean for , Non- Americans Ages 20-29 = 116 mL/min/1.73 sq.m. Ages 30-39 = 107 mL/min/1.73 sq.m. Ages 40-49 = 99 mL/min/1.73 sq.m. Ages 50-59 = 93 mL/min/1.73 sq.m. Ages 60-69 = 85 mL/min/1.73 sq.m. Ages 70+ = 75 mL/min/1.73 sq.m. Chronic Kidney Disease: Less than 60 mL/min/1.73 square meters End Stage Renal Disease: Less than 15 mL/min/1.73 square meters Performed By: #### C BC, ADIFF, ANEU, BMP #### [address] [address] #### GFR #### [place] [address] GFR Non- 83 ml/min/1.73sqm Normal [facility] ([place] Comment on above: Result Comment: GFR Population mean for , Non- Americans Ages 20-29 = 116 mL/min/1.73 sq.m. Ages 30-39 = 107 mL/min/1.73 sq.m. Ages 40-49 = 99 mL/min/1.73 sq.m. Ages 50-59 = 93 mL/min/1.73 sq.m. Ages 60-69 = 85 mL/min/1.73 sq.m. Ages 70+ = 75 mL/min/1.73 sq.m. Chronic Kidney Disease: Less than 60 mL/min/1.73 square meters End Stage Renal Disease: Less than 15 mL/min/1.73 square meters Performed By: #### C BC ADIFF ANEU, BMP #### [place] [address] #### GFR #### [place] [address] .Manual Diffon 11-25-2020 Basophil %, Manual 0.0 % Normal 0.0-2.5 [facility] ([place] Comment on above: Performed By: #### C BC ADDOMINGUEZ ANEU, BMP #### [place] [address] #### GFR #### [place] [address] Eosinophil %, Manual 0.0 % Normal 0.0-7.0 [facility] ([place]) Comment on above: Performed By: #### C BC, ADIFF, ANEU, BMP #### [place] [address] #### GFR #### [place] [address] Lymphocyte %, Manual 19.0 % Normal 10.0-50.0 [facility] ([place]) Comment on above: Performed By: #### C BC ADIFF, ANEU, BMP #### [place] [address] #### GFR #### [address] [address] Monocyte %, Manual 7.0 % Normal 1.7-13.0 [facility] ([place] Comment on above: Performed By: #### C BC, ADIFF, ANEU, BMP #### [place] [address] #### GFR #### [place] [address] Myelocyte 1.0 % Normal [facility] ([place] Comment on above: Performed By: #### C BC, ADIFF, ANEU, BMP #### [place] [address] #### GFR #### [place] [address] Neutrophil %, Manual 73.0 % Normal 37.0-80.0 [facility] ([place] Comment on above: Performed By: #### C BC, ADIFF, ANEU, BMP #### [place] [address] #### GFR #### [place] [address] .Morphon 11-25-2020 Platelet Estimate Normal Normal [facility] ([place] Comment on above: Performed By: #### C BC, ADIFF, ANEU, BMP #### [place] [address] #### GFR #### [place] [address] RBC morphology finding Nom (Bld) Normal Normal [facility] ([place] Comment on above: Performed By: #### C BC, ADIFF, ANEU, BMP #### [place] [address] #### GFR #### [place] [address] .NEUABSon 11-25-2020 Neutrophil, Absolute 2.10 10 3/mcL Low 2.85-6.16 A [facility] ([place] Comment on above: Performed By: #### C BC, ADDOMINGUEZ, ANEU, BMP #### [place] [address] #### GFR #### [place] [address] APTTon 11-25-2020 Heparin dose (APTT) Unknown Normal [facility] ([place]) Comment on above: Performed By: #### C BC, ADDOMINGUEZ, ANEU, BMP #### [place] [address] #### GFR #### [place] [address] aPTT Coag (Bld) [Time] 27.6 s Normal 23.7-37.6 [facility] ([place] Comment on above: Result Comment: For Heparin anticoagulation therapy, the recommended therapeutic range is: 53.6-87.4 seconds (1.5 - 2.5 the normal plasma mean). Patients on heparin therapy may have an extreme result. Performed By: #### C BC, ADDOMINGUEZ, ANEU, BMP #### [place] [address] #### GFR #### [place] [address] CBCon 11-25-2020 Erythrocyte distribution width (RBC) [Ratio] 13.3 % Normal 11.5-14.5 [facility] ([place] Comment on above: Performed By: #### P RO, CBC, CRP, LD, MG, CK, CMP, DIMER, FIB, APTT, ADIFF, ANEU, DIFF, MORPH #### [place] [address] #### GFR, FERR #### [place] [address] Hematocrit (Bld) [Volume fraction] 39.0 % Normal 37.0-47.0 [facility] ([place] Comment on above: Performed By: #### P RO, CBC, CRP, LD, MG, CK, CMP, DIMER, FIB, APTT, ADIFF, ANEU, DIFF, MORPH #### [place] [address] #### GFR, FERR #### [place] [address] Hgb 13.2 G/dL Normal 12.0-16.0 [facility] ([place] Comment on above: Performed By: #### P RO, CBC, CRP, LD, MG, CK, CMP, DIMER, FIB, APTT, ADIFF, ANEU, DIFF, MORPH #### [place] [address] #### GFR, FERR #### [place] [address] MCH (RBC) [Entitic mass] 29.1 pg Normal 27.0-31.2 [facility] ([place] Comment on above: Performed By: #### P RO, CBC, CRP, LD, MG, CK, CMP, DIMER, FIB, APTT, ADIFF, ANEU, DIFF, MORPH #### [place] [address] #### GFR, FERR #### [place] [address] MCHC 34.0 G/dL Normal 33.0-37.0 [facility] ([place] Comment on above: Performed By: #### P RO, CBC, CRP, LD, MG, CK, CMP, DIMER, FIB, APTT, ADIFF, ANEU, DIFF, MORPH #### [place] [address] #### GFR, FERR #### [place] [address] MCV (RBC) [Entitic vol] 85.7 fL Normal 80.0-94.0 [facility] ([place] Comment on above: Performed By: #### P RO, CBC, CRP, LD, MG, CK, CMP, DIMER, FIB, APTT, ADIFF, ANEU, DIFF, MORPH #### [place] [address] #### GFR, FERR #### [place] [address] Platelet 287 10 3/mcL Normal 130-400 [facility] ([place]) Comment on above: Performed By: #### P RO, CBC, CRP, LD, MG, CK, CMP, DIMER, FIB, APTT, ADIFF, ANEU, DIFF, MORPH #### [address] [address] #### GFR, FERR #### [place] [address] Platelet mean volume (Bld) [Entitic vol] 7.2 fL Low 7.4-10.4 [facility] ([place] Comment on above: Performed By: #### P RO, CBC, CRP, LD, MG, CK, CMP, DIMER, FIB, APTT, ADIFF, ANEU, DIFF, MORPH #### [place] [address] #### GFR, FERR #### [place] [address] RBC 4.55 10 6/mcL Normal 4.20-5.40 [facility] ([place] Comment on above: Performed By: #### P RO, CBC, CRP, LD, MG, CK, CMP, DIMER, FIB, APTT, ADIFF, ANEU, DIFF, MORPH #### [place] [address] #### GFR, FERR #### [place] [address] WBC 2.90 10 3/mcL Critically abnormal 4.60-10.80 [facility] ([place] Comment on above: Performed By: #### P RO, CBC, CRP, LD, MG, CK, CMP, DIMER, FIB, APTT, ADIFF, ANEU, DIFF, MORPH #### [place] [address] #### GFR, FERR #### [place] [address] CKon 11-25-2020 CK [Catalytic activity/Vol] 75 U/L Normal 26-192 [facility] ([place] Comment on above: Performed By: #### C BC, ADIFF, ANEU, BMP #### [place] [address] #### GFR #### [place] [address] CMPon 11-25-2020 Albumin Level 2.6 G/dL Low 3.5-5.0 [facility] ([place] Comment on above: Performed By: #### C BC, ADIFF, ANEU, BMP #### [place] [address] #### GFR #### [place] [address] Albumin/Globulin [Mass ratio] 0.6 {ratio} Low 1.1-2.5 [facility] ([place] Comment on above: Performed By: #### C BC, ADIFF, ANEU, BMP #### [place] [address] #### GFR #### [place] [address] ALP [Catalytic activity/Vol] 68 U/L Normal 40-135 [facility] ([place] Comment on above: Performed By: #### C BC, ADIFF, ANEU, BMP #### [place] [address] #### GFR #### [place] [address] ALT [Catalytic activity/Vol] 61 U/L High 14-59 [facility] ([place] Comment on above: Performed By: #### C BC, ADIFF, ANEU, BMP #### [place] [address] #### GFR #### [place] [id number] AST [Catalytic activity/Vol] 30 U/L Normal 10-40 [facility] ([place] Comment on above: Performed By: #### C BC, ADIFF, ANEU, BMP #### [place] [address] #### GFR #### [place] [address] Bili Total 0.3 mg/dL Normal 0.2-1.0 [facility] ([place] Comment on above: Result Comment: Use of this assay is not recommended for patients undergoing treatment with eltrombopag due to the potential for falsely elevated results. Performed By: #### C BC ADDOMINGUEZ ANEU, BMP #### [address] [address] #### GFR #### [address] [address] BUN/Creatinine Ratio 17 ratio Normal 7-27 [facility] ([place] Comment on above: Performed By: #### C VANDANA MARTINO ANEU, BMP #### [place] [address] #### GFR #### [address] [address] Calcium [Mass/Vol] 8.3 mg/dL Low 8.4-10.2 [facility] ([place] Comment on above: Performed By: #### C VANDANA MARTINO ANEU, BMP #### [place] [address] #### GFR #### [address] [address] Chloride [Moles/Vol] 102 mmol/L Normal 98-107 [facility] ([place] Comment on above: Performed By: #### C VANDANA MARTINO ANEU, BMP #### [place] [address] #### GFR #### [address] [address] CO2 [Moles/Vol] 28 mmol/L Normal 22-29 [facility] ([place] Comment on above: Performed By: #### C BC ADDOMINGUEZ, ANEU, BMP #### [place] [address] #### GFR #### [address] [address] Creatinine [Mass/Vol] 0.75 mg/dL Normal 0.55-1.02 On license of [facility] ([place]) Comment on above: Performed By: #### C BC, ADIFF, ANEU, BMP #### [address] [address] #### GFR #### [address] [address] Electrolyte Balance 9.0 mEq/L Normal [facility] ([place]) Comment on above: Performed By: #### C BC, ADIFF, ANEU, BMP #### [address] [address] #### GFR #### [address] [address] Globulin 4.1 G/dL Normal [facility] ([place] Comment on above: Performed By: #### C BC, ADIFF, ANEU, BMP #### [address] [address] #### GFR #### [address] [address] Glucose [Mass/Vol] 121 mg/dL High 70-105 [facility] ([place] Comment on above: Performed By: #### C BC, ADIFF, ANEU, BMP #### [address] [address] #### GFR #### [address] [address] Potassium [Moles/Vol] 4.1 mmol/L Normal 3.5-5.1 On license of [facility] ([place]) Comment on above: Performed By: #### C BC, ADIFF, ANEU, BMP #### [address] [address] #### GFR #### [address] [address] Sodium [Moles/Vol] 139 mmol/L Normal 136-145 [facility] ([place] Comment on above: Performed By: #### C BC, ADIFF, ANEU, BMP #### [address] [address] #### GFR #### [address] [address] Total Protein 6.7 G/dL Normal 6.4-8.2 [facility] ([place] Comment on above: Performed By: #### C BC, ADIFF, ANEU, BMP #### [address] [address] #### GFR #### [address] [address] Urea nitrogen [Mass/Vol] 13 mg/dL Normal 7-18 [facility] ([place] Comment on above: Performed By: #### C BC, ADIFF, ANEU, BMP #### [address] [address] #### GFR #### [address] [address] CRPon 11-25-2020 CRP [Mass/Vol] mg/L High 0.0-0.9 [facility] ([place] Comment on above: Performed By: #### P RO, CBC, CRP, LD, MG, CK, CMP, DIMER, FIB, APTT, ADIFF, ANEU, DIFF, MORPH #### [address] [address] #### GFR, FERR #### [address] [address] DIMERon 11-25-2020 D-Dimer 210 ng/mL D-DU Normal 0-230 [facility] ([place] Comment on above: Result Comment: The result of the D-Dimer test should be evaluated in the context of all the clinical and laboratory data available. In those instances where the laboratory result does not agree with the clinical evaluation, additional tests should be performed accordingly. If the D-Dimer result is used to exclude DVT or PE, the recommended cutoff value is less than 230 ng/mL. The D-Dimer result should not be used alone to rule in DVT/PE, but should be used in conjunction with a clinical pretest probability (PTP)assessment model to exclude venous thromboembolism (VTE) in outpatients suspected of deep venous thrombosis (DVT) and pulmonary embolism (PE). Performed By: #### C BC, ADIFF, ANEU, BMP #### [place] [address] #### GFR #### [address] [address] Frank 11-25-2020 Ferritin [Mass/Vol] 777.4 ng/mL High 8.0-252.0 [facility] ([place]) Comment on above: Performed By: #### C GUNNER, VANDANA ANEU, BMP #### [address] [address] #### GFR #### [place] [id number] FIBon 11-25-2020 Fibrinogen 1212 mg/dL High 334-713 [facility] ([place] Comment on above: Performed By: #### C GUNNER, VANDANA ANEU, BMP #### [place] [address] #### GFR #### [place] [address] LDHon 11-25-2020 LDH 345 U/L High 81-234 [facility] ([place]) Comment on above: Performed By: #### C GUNNER, VANDANA ANEU, BMP #### [address] [address] #### GFR #### [place] [address] MGon 11-25-2020 Magnesium [Mass/Vol] 2.1 mg/dL Normal 1.8-2.4 [facility] ([place]) Comment on above: Performed By: #### C GUNNER, VANDANA, ANEU, BMP #### [place] [address] #### GFR #### [place] [address] PROon 11-25-2020 INR Coag (PPP) [Relative time] 1.2 {INR} Normal 0.9-1.2 [facility] ([place]) Comment on above: Result Comment: Ruiz dard Dose 2.0 - 3.0 High Dose 2.5 - 3.5 The recommended therapeutic range for oral anticoagulant therapy is: LOW RISK: Prophylaxis of venous thrombosis INR: 2.0 - 3.0 Treatment of pulmonary embolism 2.0 - 3.0 Prevention of systemic embolism 2.0 - 3.0 HIGH RISK: Mechanical prosthetic valves 2.5 - 3.5 Performed By: #### P RO, CBC, CRP, LD, MG, CK, CMP, DIMER, FIB, APTT, ADIFF, ANEU, DIFF, MORPH #### [place] [address] #### GFR, FERR #### [address] [address] PT Coag (PPP) [Time] 13.8 s Normal 9.7-14.3 [facility] ([place]) Comment on above: Performed By: #### P RO, CBC, CRP, LD, MG, CK, CMP, DIMER, FIB, APTT, ADIFF, ANEU, DIFF, MORPH #### [place] [address] #### GFR, FERR #### [address] [address] .Auto Diffon 11-24-2020 Basophil, Absolute 0.00 10 3/mcL Normal 0.00-0.19 On license of [facility] ([place]) Comment on above: Performed By: #### C BC, ADIFF, ANEU, BMP #### [place] [address] #### GFR #### [address] [address] Basophils/100 WBC (Bld) 0.2 % Normal 0.0-2.5 [facility] ([place] Comment on above: Performed By: #### C BC, ADIFF, ANEU, BMP #### [place] [address] #### GFR #### [address] [address] Eosinophil, Absolute 0.00 10 3/mcL Normal 0.00-0.40 [facility] ([place]) Comment on above: Performed By: #### C BC, ADIFF, ANEU, BMP #### [place] [address] #### GFR #### [address] [address] Eosinophils/100 WBC (Bld) 0.1 % Normal 0.0-7.0 [facility] ([place]) Comment on above: Performed By: #### C BC, ADIFF, ANEU, BMP #### [address] [address] #### GFR #### [address] [address] Lymphocyte, Absolute 1.00 10 3/mcL Normal 0.77-3.85 [facility] ([place]) Comment on above: Performed By: #### C BC, ADIFF, ANEU, BMP #### [address] [address] #### GFR #### [address] [address] Lymphocytes/100 WBC (Bld) 14.8 % Normal 10.0-50.0 [facility] ([place]) Comment on above: Performed By: #### C BC, ADIFF, ANEU, BMP #### [address] [address] #### GFR #### [address] [address] Monocyte, Absolute 0.20 10 3/mcL Normal 0.15-1.00 On license of [facility] ([place]) Comment on above: Performed By: #### C BC, ADIFF, ANEU, BMP #### [address] [address] #### GFR #### [address] [address] Monocytes/100 WBC (Bld) 3.1 % Normal 1.7-13.0 [facility] ([place]) Comment on above: Performed By: #### C BC, ADIFF, ANEU, BMP #### [address] [address] #### GFR #### [address] [address] Neutrophils/100 WBC (Bld) 81.8 % High 37.0-80.0 [facility] ([place] Comment on above: Performed By: #### C BC, VANDANA, ANEU, BMP #### [place] [address] [place], [place] [address] #### GFR #### [place] [address] [place] [address] .GFRon 11-24-2020 GFR Non- 71 ml/min/1.73sqm Normal [facility] ([place] Comment on above: Result Comment: GFR Population mean for , Non- Americans Ages 20-29 = 116 mL/min/1.73 sq.m. Ages 30-39 = 107 mL/min/1.73 sq.m. Ages 40-49 = 99 mL/min/1.73 sq.m. Ages 50-59 = 93 mL/min/1.73 sq.m. Ages 60-69 = 85 mL/min/1.73 sq.m. Ages 70+ = 75 mL/min/1.73 sq.m. Chronic Kidney Disease: Less than 60 mL/min/1.73 square meters End Stage Renal Disease: Less than 15 mL/min/1.73 square meters Performed By: #### C BC, VANDANA, ANEU, BMP #### [address] [address] #### GFR #### [address] [address] GFR 86 ml/min/1.73sqm Normal [facility] ([place]) Comment on above: Result Comment: GFR Population mean for , Non- Americans Ages 20-29 = 116 mL/min/1.73 sq.m. Ages 30-39 = 107 mL/min/1.73 sq.m. Ages 40-49 = 99 mL/min/1.73 sq.m. Ages 50-59 = 93 mL/min/1.73 sq.m. Ages 60-69 = 85 mL/min/1.73 sq.m. Ages 70+ = 75 mL/min/1.73 sq.m. Chronic Kidney Disease: Less than 60 mL/min/1.73 square meters End Stage Renal Disease: Less than 15 mL/min/1.73 square meters Performed By: #### C BC, ADIFF, ANEU, BMP #### [address] [address] #### GFR #### [address] [address] .NEUABSon 11-24-2020 Neutrophil, Absolute 5.50 10 3/mcL Normal 2.85-6.16 A [facility] ([place]) Comment on above: Performed By: #### C BC, ADIFF, ANEU, BMP #### [place] [address] #### GFR #### [address] [address] BMPon 11-24-2020 BUN/Creatinine Ratio 9 ratio Normal 7-27 [facility] ([place]) Comment on above: Performed By: #### C BC, ADIFF, ANEU, BMP #### [place] [address] #### GFR #### [place] [address] Calcium [Mass/Vol] 8.2 mg/dL Low 8.4-10.2 [facility] ([place]) Comment on above: Performed By: #### C BC, ADIFF, ANEU, BMP #### [address] [address] #### GFR #### [address] [address] Chloride [Moles/Vol] 102 mmol/L Normal 98-107 [facility] ([place]) Comment on above: Performed By: #### C BC, ADIFF, ANEU, BMP #### [address] [address] #### GFR #### [address] [address] CO2 [Moles/Vol] 29 mmol/L Normal 22-29 [facility] ([place] Comment on above: Performed By: #### C BC, ADIFF, ANEU, BMP #### [place] [address] #### GFR #### [address] [address] Creatinine [Mass/Vol] 0.86 mg/dL Normal 0.55-1.02 On license of [facility] ([place]) Comment on above: Performed By: #### C BC, ADIFF, ANEU, BMP #### [address] [address] #### GFR #### [address] [address] Electrolyte Balance 8.0 mEq/L Normal [facility] ([place]) Comment on above: Performed By: #### C BC, ADIFF, ANEU, BMP #### [place] [address] #### GFR #### [place] [address] Glucose [Mass/Vol] 100 mg/dL Normal 70-105 [facility] ([place]) Comment on above: Performed By: #### C BC, ADIFF, ANEU, BMP #### [place] [address] #### GFR #### [address] [address] Potassium [Moles/Vol] 3.2 mmol/L Low 3.5-5.1 On license of [facility] ([place]) Comment on above: Performed By: #### C BC, ADIFF, ANEU, BMP #### [place] [address] #### GFR #### [address] [address] Sodium [Moles/Vol] 139 mmol/L Normal 136-145 [facility] ([place]) Comment on above: Performed By: #### C BC, ADIFF, ANEU, BMP #### [place] [address] #### GFR #### [place] [address] Urea nitrogen [Mass/Vol] 8 mg/dL Normal 7-18 [facility] ([place] Comment on above: Performed By: #### C BC, ADIFF, ANEU, BMP #### [address] [address] #### GFR #### [place] [address] CBCon 11-24-2020 Erythrocyte distribution width (RBC) [Ratio] 13.1 % Normal 11.5-14.5 [facility] ([place] Comment on above: Performed By: #### C BC, ADIFF, ANEU, BMP #### [place] [address] #### GFR #### [place] [address] Hematocrit (Bld) [Volume fraction] 41.2 % Normal 37.0-47.0 [facility] ([place]) Comment on above: Performed By: #### C BC, ADIFF, ANEU, BMP #### [place] [address] #### GFR #### [place] [address] Hgb 14.0 G/dL Normal 12.0-16.0 [facility] ([place]) Comment on above: Performed By: #### C BC, ADIFF, ANEU, BMP #### [place] [address] #### GFR #### [place] [address] MCH (RBC) [Entitic mass] 28.8 pg Normal 27.0-31.2 [facility] ([place] Comment on above: Performed By: #### C BC, ADIFF, ANEU, BMP #### [place] [address] #### GFR #### [place] [address] MCHC 34.0 G/dL Normal 33.0-37.0 [facility] ([place] Comment on above: Performed By: #### C BC, ADIFF, ANEU, BMP #### [place] [address] #### GFR #### [address] [address] MCV (RBC) [Entitic vol] 84.8 fL Normal 80.0-94.0 [facility] ([place] Comment on above: Performed By: #### C BC, ADIFF, ANEU, BMP #### [place] [address] #### GFR #### [place] [address] Platelet 253 10 3/mcL Normal 130-400 [facility] ([place] Comment on above: Performed By: #### C BC, ADDOMINGUEZ, ANEU, BMP #### [place] [address] #### GFR #### [place] [address] Platelet mean volume (Bld) [Entitic vol] 7.0 fL Low 7.4-10.4 [facility] ([place] Comment on above: Performed By: #### C BC, ADIFF, ANEU, BMP #### [place] [address] #### GFR #### [place] [address] RBC 4.86 10 6/mcL Normal 4.20-5.40 [facility] ([place] Comment on above: Performed By: #### C BC, ADDOMINGUEZ, ANEU, BMP #### [place] [address] #### GFR #### [place] [address] WBC 6.70 10 3/mcL Normal 4.60-10.80 [facility] ([place] Comment on above: Performed By: #### C BC, ADDOMINGUEZ, ANEU, BMP #### [place] [address] #### GFR #### [place] [address] CRPon 11-24-2020 CRP [Mass/Vol] mg/L High 0.0-0.9 [facility] ([place] Comment on above: Performed By: #### C #### [place] [address] [place], [place] [address] XR CHEST 1 VIEWon 11-24-2020 XR CHEST 1 VIEW ORIGINAL EXAMINATION: ONE XRAY VIEW OF THE CHEST 11/24/2020 10:05 am COMPARISON: None. HISTORY: ORDERING SYSTEM PROVIDED HISTORY: Reason for Exam: SOB Reported COVID positive. FINDINGS: The cardiomediastinal silhouette demonstrates a normal appearance. Patchy predominantly peripheral airspace opacities are noted bilaterally. There is no pleural effusion or pneumothorax. No free air seen beneath the level of the diaphragm. The bony thorax appears acutely intact. IMPRESSION: Patchy predominantly peripheral airspace opacities bilaterally. These findings are concerning for a developing infectious/inflammato ry process likely on the basis of COVID-19 pneumonia given reported positive history. Interpreted by: Logan Laguerre Preliminary Report By: Logan Laguerre Electronically signed By Logan Laguerre Dictated Date: 11/24/2020 10:12:33 AM Prelim Date: 11/24/2020 10:13:38 AM Sign Date: 11/24/2020 10:13:38 AM Ordering Provider: SMOOTH Miguel [facility] ([place] Office Visit: [facility]: cervical and L shoulder recheckon 11-18-2016 Documentation of current medications (procedure) Done Invalid Interpretation Code [facility] Work Phone: Fall risk assessment No Invalid Interpretation Code [facility] Work Phone: Protein mass conc Done [facility] Work Phone: Tobacco smoking status NHIS Never Invalid Interpretation Code [facility] Work Phone: Tobacco smoking status NHIS Never smoker [facility] Work Phone: Tobacco use HS Never smoker Invalid Interpretation Code [facility] Work Phone: Office Visit: [facility]:cervical a nd L shoulder strainon 11-08-2016 Documentation of current medications (procedure) Done Invalid Interpretation Code [facility] Work Phone: Fall risk assessment No Invalid Interpretation Code [facility] Work Phone: Tobacco smoking status NHIS Never Invalid Interpretation Code [facility] Work Phone: Tobacco use [facility] Never smoker Invalid Interpretation Code [facility] Work Phone: Office Visit: [facility]: Cervical and L Shoulder strainson 10-27-2016 Protein mass conc Done [facility] Work Phone: Tobacco smoking status NHIS Never [facility] Work Phone: Tobacco smoking status NHIS Never smoker [facility] Work Phone: Office Visit: [facility]: hit with door at work and hurt R charlene 07-27-2016 Documentation of current medications (procedure) Done Invalid Interpretation Code [facility] Work Phone: Documentation of current medications (procedure) T Invalid Interpretation Code [facility] Work Phone: Fall risk assessment No [facility] Work Phone: Employer Purchased Services: Employer Purchased Service: physicalon 05-26-2016 Tobacco use CPHS Never smoker Invalid Interpretation Code [facility] Work Phone: Vital Signs Date Time Vital Sign Value Performing Clinician Facility 05-02-2023 02:49-0500 Body temperature 100.4 [degF] NIDAL CHOUJAA DO [facility] 05-02-2023 02:49-0500 Diastolic Blood Pressure Non-Invasive 107 mm[Hg] NIDAL CHOUJAA DO [facility] 05-02-2023 02:49-0500 Heart rate 110 /min NIDAL CHOUJAA DO [facility] 05-02-2023 02:49-0500 Respiratory rate 20 /min NIDAL CHOUJAA DO [facility] 05-02-2023 02:49-0500 Systolic Blood Pressure Non-Invasive 166 mm[Hg] NIDAL CHOUJAA DO [facility] 09-20-2022 11:15-0400 Body temperature 98.29 [degF] Martine Athy PA-C Work Phone: [facility] 09-20-2022 11:15-0400 Body weight 164.2 kg Martine Athy PA-C Work Phone: [facility] 09-20-2022 11:15-0400 Diastolic blood pressure 78 mm[Hg] Martine Athy PA-C Work Phone: [facility] 09-20-2022 11:15-0400 Heart rate 98 /min Martine Athy PA-C Work Phone: [facility] 09-20-2022 11:15-0400 Respiratory rate 18 /min Martine Athy PA-C Work Phone: [facility] 09-20-2022 11:15-0400 SaO2% (BldA) [Mass fraction] 95 % Martine Athy PA-C Work Phone: [facility] 09-20-2022 11:15-0400 Systolic blood pressure 126 mm[Hg] Martine Athy PA-C Work Phone: [facility] 11-18-2016 15:34-0400 BMI (Body Mass Index) 45.38 kg/m2 Manuel ABDI [facility] Now [facility] Work Phone: 11-18-2016 15:34-0400 Body Temperature 97.9 [degF] Manuel ABDI [facility] Work Phone: 11-18-2016 15:34-0400 BP Diastolic 98 mm[Hg] Manuel ABDI [facility] Work Phone: 11-18-2016 15:34-0400 BP Systolic 148 mm[Hg] Manuel ABDI [facility] Work Phone: 11-18-2016 15:34-0400 Height 181.61 cm Manuel ABDI [facility] Work Phone: 11-18-2016 15:34-0400 Pulse (Heart Rate) 84 /min Manuel ABDI [facility] Work Phone: 11-18-2016 15:34-0400 Respiratory Rate 14 /min Manuel Katie ABDI [facility] Work Phone: 11-18-2016 15:34-0400 Weight 149.69 kg Manuel Katie ABDI [facility] Work Phone: 11-08-2016 15:55-0400 BMI (Body Mass Index) 45.24 kg/m2 Anastasia Bradford FLORIST [facility] No w Clinic Work Phone: 11-08-2016 15:55-0400 Body Temperature 98.2 [degF] Anastasia Bradford FLORIST [facility] Now [facility] Work Phone: 11-08-2016 15:55-0400 BP Diastolic 92 mm[Hg] Anastasia Bradford FLORIST [facility] Now [facility] ic Work Phone: 11-08-2016 15:55-0400 BP Systolic 146 mm[Hg] Anastasia Bradford FLORIST [facility] Work Phone: 11-08-2016 15:55-0400 Height 181.61 cm Anastasia Bradford LPN [facility] Work Phone: 11-08-2016 15:55-0400 Pulse (Heart Rate) 91 /min Anastasia Bradford FLORIST [facility] Now [facility]inic Work Phone: 11-08-2016 15:55-0400 Respiratory Rate 15 /min Anastasia Bradford FLORIST [facility] Now [facility] Work Phone: 11-08-2016 15:55-0400 Weight 149.23 kg Anastasia Bradford FLORIST [facility] Work Phone: 10-27-2016 15:57-0400 BMI (Body Mass Index) 45.38 kg/m2 Payton Martinez LPN [facility] Work Phone: 10-27-2016 15:57-0400 Body Temperature 98.5 [degF] Payton Martinez FLORIST [facility] Work Phone: 10-27-2016 15:57-0400 BP Diastolic 74 mm[Hg] Payton Martinez FLORIST [facility] Work Phone: 10-27-2016 15:57-0400 BP Systolic 110 mm[Hg] Payton Martinez FLORIST [facility] Work Phone: 10-27-2016 15:57-0400 Height 181.61 cm Payton Martinez FLORIST [facility] Work Phone: 10-27-2016 15:57-0400 Pulse (Heart Rate) 93 /min Payton Martinez FLORIST [facility] Work Phone: 10-27-2016 15:57-0400 Respiratory Rate 14 /min Payton Martinez FLORIST [facility] Work Phone: 10-27-2016 15:57-0400 Weight 149.69 kg Payton Martinez LPN [facility] Work Phone: 07-27-2016 16:20-0400 BMI (Body Mass Index) 45.68 kg/m2 Anastasia Bradford FLORIST [facility] No w Clinic Work Phone: 07-27-2016 16:20-0400 Body Temperature 98.5 [degF] Anastasia Bradford FLORIST [facility] Now [facility] Work Phone: 07-27-2016 16:20-0400 BP Diastolic 64 mm[Hg] Anastsaia Bradford FLORIST [facility] Work Phone: 07-27-2016 16:20-0400 BP Systolic 120 mm[Hg] Anastasia Bradford FLORIST [facility] Work Phone: 07-27-2016 16:20-0400 Height 181.61 cm Anastasia Bradford FLORIST [facility] Work Phone: 07-27-2016 16:20-0400 Pulse (Heart Rate) 88 /min Anastasia Bradford LPN [facility] Work Phone: 07-27-2016 16:20-0400 Pulse Oximetry 98 % Anastasia Bradford LPN [facility] Work Phone: 07-27-2016 16:20-0400 Respiratory Rate 14 /min Anastasia Bradford LPN [facility] Work Phone: 07-27-2016 16:20-0400 Weight 150.69 kg Anastasia Bradford LPN [facility] Work Phone: Encounters Encounter Date Encounter Type Care Provider Facility Start: 05-02-2023 End: 05-02-2023 Emergency department patient visit APOLONIA GOODMAN DO [facility] Start: 09-20-2022 End: 09-20-2022 ambulatory MARTINE CYR Facility:[facility] Start: 09-20-2022 End: 09-20-2022 Subsequent hospital visit by physician Xr [facility] [place] Work Phone: Radiology Comment on above: Bronchitis [J40] Start: 09-20-2022 Telephone encounter Martine Herron Ath y PA-C Work Phone: [facility] Comment on above: Results Start: 09-20-2022 End: 09-20-2022 ambulatory BEVERLY CORONADO Facility:[facility] Start: 09-20-2022 End: 09-20-2022 Patient encounter procedure Martine Herron Athyazmin PA-C Work Phone: [facility] Comment on above: Bronchitis (Primary Dx) Procedures Date Procedure Procedure Detail Performing Clinician Start: 09-20-2022 Radiologic exam chest 2 views Martine Herron Athy PA-C Work Phone: Start: 05-26-2016 Physical examination Physical Payton Martinez LPN Start: 05-26-2016 End: 05-26-2016 Pre-employment PE Manuel Wilson PA Work Phone: Start: 09-15-2011 Lipid 1996 panel - Serum or Plasma [facility] [place] Work Phone: Start: 07-19-2008 End: 03-11-2009 H/O: section Previous delivery, antepartum condition or complication [facility] [place] Work Phone: Plan of Treatment Date Care Activity Detail Author Start: 03-13-2026 Urine microalbumin profile [facility] Start: 11-29-2024 HPV TESTING HPV TESTING [facility] Start: 11-29-2024 PAP TESTING PAP TESTING [facility] Start: 11-29-2024 Screening for malign ant neoplasm of cervix Cervical Cancer Screening [facility] Start: 11-27-2023 Covid-19 Vaccine ( season) Covid-19 Vaccine () [facility] Start: 11-27-2023 Influenza vaccination Influenza Vacc ine (#1) [facility] Start: 11-26-2022 Influenza vaccination INFLUENZ A (Season Ended) [facility] Start: 08-01-2019 COLOGUARD (FIT-DNA) COLOGUARD (FIT-D NA) [facility] Start: 08-01-2019 Colonoscopy COLONOSCOPY [facility] Start: 08-01-2019 COLORECTAL CANCER SCREENING COLORECTAL CANCER SCREENING [facility] Start: 08-01-[address] COLONOGRAPHY [facility] Start: 08-01-2019 DIABETES SCREEN DIABETES SCREEN [facility] Start: 08-01-2019 Diabetes Screening Diabetes Screenin g [facility] Start: 08-01-2019 FECAL OCCULT BLOOD FECAL OCCULT BLOO D [facility] Start: 08-01-2019 Lipid panel Lipid Screening [facility] Start: 08-01-2019 LIPID SCREEN LIPID SCREEN [facility] Start: 08-01-2019 Screening for malign ant neoplasm of colon [facility] Start: 08-01-2019 SIGMOIDOSCOPY SIGMOIDOSCOPY [facility] Start: 11-18-2016 End: 11-18-2016 Appointment Appointment [facility] Work Phone: Start: 11-08-2016 End: 11-08-2016 Appointment Appointment [facility] Work Phone: Start: 11-03-2016 End: 11-03-2016 Appointment Appointment [facility] Work Phone: Start: 10-27-2016 End: 10-27-2016 Appointment Appointment [facility] Work Phone: Start: 07-27-2016 End: 07-27-2016 Appointment Appointment [facility] Work Phone: Start: 07-27-2016 End: 07-27-2016 X-ray exam of elbow X-Ray, Elbow [facility] Work Phone: Start: 2014 Mammography MAMMOGRAM [facility] Start: 2014 Screening for malign ant neoplasm of breast Mammogram Screening [facility] Start: 1993 Hepatitis B Vaccine (1 of 3 - 19+ 3-dose series) Hepatitis B Vaccine (1 of 3 - 19+ 3-dose series) [facility] Start: 1992 HEPATITIS C SCREENING HEPATITIS C [facility] Start: 1992 Hepatitis C screening Hepatitis C [facility] Start: 01-31-1975 COVID-19 VACCINE (#1) COVID-19 VACCI NE (#1) [facility] Start: 1974 HEPATITIS B (1 of 3 - 3-dose series) HEPATITIS B (1 of 3 - 3-dose series) [facility] Patient Education [id number]%[email or web address] [facility] Work Phone: End: 10-20-2023 Radiologic exam chest 2 views XR CHEST 2V FRONTAL/LAT Radiology STAT Bronchitis 1 Occurrences starting 09/20/2022 until 10/20/2023 [facility] Work Phone: Comment on above: 1 Occurrences starti ng 09/20/2022 until 10/20/2023 [facility] Immunizations Immunization Date Immunization Notes Care Provider Fa ingrid 03-13-2016 tetanus toxoid, redu jamil diphtheria toxoid, and acellular pertussis vaccine, adsorbed Martine Cyr PA-C Work Phone: [facility] 01-10-2009 influenza virus vaccine, unspecified formulation Martine Cyr PA-C Work Phone: [facility] Work Phone: 01-01-2009 RHO(D) immune globul in- IV or IM Martine Cyr PA-C Work Phone: [facility] Payers Date Payer Category Payer Unknown [employer] PPO [id number] 2019-Present [phone] [address] [place] [address] PPO [id number] 2019 Unknown [id number] Social History Date Type Detail Facility Start: 08-19-2010 End: 11-24-2020 Tobacco smoking status NHIS Never smoked tobacco [facility] Work Phone: Start: 08-19-2010 Tobacco use and exposure Smokeless tobacco non-user [facility] Work Phone: Start: 11-16-2020 Alcohol intake 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) [facility] Start: 1975 Sex Assigned At Not on file [facility] Sex Assigned At Sex [facility] Start: 03-02-2020 End: 11-16-2020 History of Social function [facility] Start: 03-02-2020 End: 11-16-2020 Tobacco use panel [facility] National Score (1-100), lower number is lower risk Not on file [facility] Start: 11-28-2019 Gender identity Identifies as female gender (finding) [facility] Functional Status Date Assessment Result Facility 05-02-2023 Functional Status ID band on, Call device within reach, Bed in low position, Wheels locked, Upper/Half-Length side-rails up, Phone within reach, Bedside Cart Locked [facility] Mental Status Date Assessment Result Facility 05-02-2023 Mental Status Oriented x 4 [facility] Clinical Notes 11-06-2008 to 05-02-2023 Telephone Encounter - Mel Andersen MA - 09/20/2022 6:18 PM EDTTelephone Encounter - Martine Cyr PA-C - 09/20/2022 6:06 PM Melvi Wiggins RT(R) - 09/20/2022 5:10 PM EDT Note Date & Type Note Facility 05-02-2023 Hospital Discharg e instructions Patient Education 05/02/2023 03:25:33 Viral Syndrome (Adult) Viral Syndrome (Adult) A viral illness may cause a number of symptoms such as fever. Other symptoms depend on the part of the body that the virus affects. If it settles in your nose, throat, and lungs, it may cause cough, sore throat, congestion, runny nose, headache, earache and other ear symptoms, or shortness of breath. If it settles in your stomach and intestinal tract, it may cause nausea, vomiting, cramping, and diarrhea. Sometimes it causes generalized symptoms like aching all over, feeling tired, loss of energy, or loss of appetite. A viral illness usually lasts anywhere from several days to several weeks, but sometimes it lasts longer. In some cases, a more serious infection can look like a viral syndrome in the first few days of the illness. You may need another exam and additional tests to know the difference. Watch for the warning signs listed below for when to seek medical advice. Home care Follow these guidelines for taking care of yourself at home: If symptoms are severe, rest at home for the first 2 to 3 days. Stay away from cigarette smoke - both your smoke and the smoke from others. You may use zogp-kle-cjedtah acetaminophen or ibuprofen for fever, muscle aching, and headache, unless another medicine was prescribed for this. If you have chronic liver or kidney disease or ever had a stomach ulcer or gastrointestinal bleeding, talk with your healthcare provider before using these medicines. No one who is younger than 18 and ill with a fever should take aspirin. It may cause severe disease or . Your appetite may be poor, so a light diet is fine. Avoid dehydration by drinking 8 to 12, 8-ounce glasses of fluids each day. This may include water; orange juice; lemonade; apple, grape, and cranberry juice; clear fruit drinks; electrolyte replacement and sports drinks; and decaffeinated teas and coffee. If you have been diagnosed with a kidney disease, ask your healthcare provider how much and what types of fluids you should drink to prevent dehydration. If you have kidney disease, drinking too much fluid can cause it build up in the your body and be dangerous to your health. Rude-ssf-ptrpsgb remedies won't shorten the length of the illness but may be helpful for symptoms such as cough, sore throat, nasal and sinus congestion, or diarrhea. Don't use decongestants if you have high blood pressure. Follow-up care Follow up with your healthcare provider if you do not improve over the next week. Call 911 Call 911 if any of the following occur: Convulsion Feeling weak, dizzy, or like you are going to faint Chest pain, or more than mild shortness of breath When to seek medical advice Call your healthcare provider right away if any of these occur: Cough with lots of colored sputum (mucus) or blood in your sputum Chest pain, shortness of breath, wheezing, or trouble breathing Severe headache; face, neck, or ear pain Severe, constant pain in the lower right side of your belly (abdominal) Continued vomiting (can t keep liquids down) Frequent diarrhea (more than 5 times a day); blood (red or black color) or mucus in diarrhea Feeling weak, dizzy, or like you are going to faint Extreme thirst Fever of 100.4 F (38 C) or higher, or as directed by your healthcare provider [phone] [employer]. [address] [place] [address]. All rights reserved. This information is not intended as a substitute for professional medical care. Always follow your healthcare professional's instructions. Follow Up Care 05/02/2023 02:43:09 With:BEVERLY CORONADO MD Address: [facility] [place] [address] [address]- [phone] When:2-4 days [facility] 05-02-2023 Note Discharge Instructions Thank you for allowing [facility] to assist you with your healthcare needs. The following is important discharge information regarding your hospital visit. Diagnosis from Today's Visit Febrile illness Viral syndrome What to Do Next Instructions from Your Care Team Discharge Return to Work, School, or Sports (Return to Work, School, or Sports) - Ordered -- 05/03/23, May return to: work, 05/02/23 3:25:00 EST Post Acute Orders No qualifying data available. You Need to Schedule the Following Appointments Follow Up with BEVERLY CORONADO MD When Within 2-4 days Where: [facility] Lisa TREVIZO [address] [address]- [phone] Allergies NKA Medications Please ask your primary doctor or pharmacist before taking any other medication not listed, including over the counter drugs, herbal medications, vitamins and or supplements as they may interact with your home medications. Please take this list to your next doctor s visit. Bring all medications you take, including over the counter medications, herbals and other supplements with you to your doctor s visit. Patients and families are reminded to discard old lists and to update any records with all medication providers or retail pharmacies. Education Materials Viral Syndrome (Adult) A viral illness may cause a number of symptoms such as fever. Other symptoms depend on the part of the body that the virus affects. If it settles in your nose, throat, and lungs, it may cause cough, sore throat, congestion, runny nose, headache, earache and other ear symptoms, or shortness of breath. If it settles in your stomach and intestinal tract, it may cause nausea, vomiting, cramping, and diarrhea. Sometimes it causes generalized symptoms like aching all over, feeling tired, loss of energy, or loss of appetite. A viral illness usually lasts anywhere from several days to several weeks, but sometimes it lasts longer. In some cases, a more serious infection can look like a viral syndrome in the first few days of the illness. You may need another exam and additional tests to know the difference. Watch for the warning signs listed below for when to seek medical advice. Home care Follow these guidelines for taking care of yourself at home: If symptoms are severe, rest at home for the first 2 to 3 days. Stay away from cigarette smoke - both your smoke and the smoke from others. You may use xdtj-xkd-xdpgofu acetaminophen or ibuprofen for fever, muscle aching, and headache, unless another medicine was prescribed for this. If you have chronic liver or kidney disease or ever had a stomach ulcer or gastrointestinal bleeding, talk with your healthcare provider before using these medicines. No one who is younger than 18 and ill with a fever should take aspirin. It may cause severe disease or . Your appetite may be poor, so a light diet is fine. Avoid dehydration by drinking 8 to 12, 8-ounce glasses of fluids each day. This may include water; orange juice; lemonade; apple, grape, and cranberry juice; clear fruit drinks; electrolyte replacement and sports drinks; and decaffeinated teas and coffee. If you have been diagnosed with a kidney disease, ask your healthcare provider how much and what types of fluids you should drink to prevent dehydration. If you have kidney disease, drinking too much fluid can cause it build up in the your body and be dangerous to your health. Knva-vqw-ehwrmzg remedies won't shorten the length of the illness but may be helpful for symptoms such as cough, sore throat, nasal and sinus congestion, or diarrhea. Don't use decongestants if you have high blood pressure. Follow-up care Follow up with your healthcare provider if you do not improve over the next week. Call 911 Call 911 if any of the following occur: Convulsion Feeling weak, dizzy, or like you are going to faint Chest pain, or more than mild shortness of breath When to seek medical advice Call your healthcare provider right away if any of these occur: Cough with lots of colored sputum (mucus) or blood in your sputum Chest pain, shortness of breath, wheezing, or trouble breathing Severe headache; face, neck, or ear pain Severe, constant pain in the lower right side of your belly (abdominal) Continued vomiting (can t keep liquids down) Frequent diarrhea (more than 5 times a day); blood (red or black color) or mucus in diarrhea Feeling weak, dizzy, or like you are going to faint Extreme thirst Fever of 100.4 F (38 C) or higher, or as directed by your healthcare provider [phone] [employer]. [address] [place] [address]. All rights reserved. This information is not intended as a substitute for professional medical care. Always follow your healthcare professional's instructions. Additional Information VACCINATE! IT SAVES LIVES! Members of the community who have not yet received the COVID-19 vaccine and would like to receive it can visit one of [facility] vaccine clinics. There are many vaccine clinic locations within the [facility]. For locations and available times, please visit [email or web address] [email or web address] It is important to note that some COVID mobile vaccine clinics are held outdoors and may be canceled in rainy or stormy conditions. To learn more about pediatric vaccinations (ages 5-11), we invite you to visit the [facility] webpage. https://www.[facility].org/p ages/1338-Gsvnl-Msavdcyjetw-Freq aguduf-Lwqtl-Cqdzrvebp.html To learn more about the COVID-19 vaccine, we invite you to visit the CDC website for a list of frequently asked questions. https://www.cdc.gov/coronavirus/ 2019-ncov/vaccines/faq.html [facility] [employer] Patient Portal Access Instructions: Stay connected with your healthcare team and access your personal medical information anytime with the [facility] Patient Portal. If you would like a full copy of your medical records please contact the [facility] Medical Records Department Tuesday through Tuesday between 8a.m. and 4:30p.m. Please follow the directions below to access the portal: 1.Access the email account you provided upon registration to the [facility].2.Look for an invitation email from [facility].3.Open the email and access the invitation link: Accept Invitation to [facility].Fill in the required ojeda to create your account. Sign into [email or web address] with your username and password that you created in the above steps to stay up to date. You can then view a summary of results, a summary of your visits, and the ability to download your summaries to your computer or send the information securely to a physician. Remember that your healthcare information is confidential, so carefully consider who you will allow to register on the [facility] Patient Portal for access to your information. You can also access the [facility] Patient Portal on the [employer] sonia. Simply click on Health Records under Health Data and then click on the [employer] logo. HOW TO SAFELY DISPOSE OF PRESCRIPTION MEDICATIONS Please use one of the following methods to safely dispose of your unused medications. 1.Use a drug disposal kit: the drug disposal pouch allows you to safely discard your old and unused drugs. Ask your nurse to give you one when you are discharged.2.Visit a local take-back location: Many local pharmacies and police departments have programs that collect old and unwanted prescription drugs. Call your local pharmacy or go to http://bit.ly/5J8Tr0s to find one close to you.3.Make use of household items: Use cat litter or old coffee grounds to dispose medications if other options are not available. Mix your drugs with these household products, seal them in an airtight container and throw it into the garbage. Call [facility]: [phone] to be sure your drugs can be disposed of in this way. Some medicines may require a different approach.4.Never flush your medications down the toilet. IF YOU HAVE BEEN PRESCRIBED AN OPIOIDS FOR PAIN If you have been prescribed an opioid (such as hydrocodone, oxycodone or morphine), it is critical to understand the possible side effects and risks of opioid pain medications. Even when taken as directed, opioids can have several side effects including: Tolerance, meaning you might need to take more of a medication for the same pain relief. Nausea, vomiting and/or constipation. Sleepiness, dizziness, dry mouth, confusion, depression or itching. Physical dependence, meaning you have withdrawal symptoms when a medication is stopped ? this can develop within a few days. KNOW YOUR RESPONSIBILITIES It is important to know exactly how much and how often to take the opioid pain medications you are prescribed. Never take opioids in higher amounts or more often than prescribed. Do not combine opioids with alcohol or other drugs that cause drowsiness, such as benzodiazepines, also known as benzos, including diazepam and alprazolam, muscle relaxants or sleep aids. Never sell or share prescription opioids. This is illegal. Store opioids in a secure place and out of reach of others (including children, family, friends and visitors). The last page(s) of this document has been signed and retained as a CHART COPY Signatures Patient Education Materials Viral Syndrome (Adult) Medication Leaflets My discharge plan and instructions have been reviewed and explained to me and IALAINA LORI M understand my current condition and have read and understand these discharge instructions. I have received a written copy of the plan/instructions. If I have questions, I am aware that I should contact my doctor. 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 No consolidation, pleural effusion, or vascular congestion is seen. The osseous structures are intact. IMPRESSION: No acute findings. Interpreted by: Daren Schilling MD Preliminary Report By: Daren Schilling MD Electronically signed By Daren Schilling MD Dictated Date: 05/02/2023 3:32:41 AM Prelim Date: 05/02/2023 3:45:09 AM Sign Date: 05/02/2023 3:45:09 AM Ordering Provider: APOLONIA GOODMAN [facility] 09-20-2022 Note HNO ID: [id number] Author: RT Vadim(R) Service: Radiology Author Type: Technologist Type: Progress Notes Filed: 09/20/2022 5:17 PM Note Text: Radiology Service Progress Note PATIENT NAME: Krista Foley DATE OF SERVICE: September 20, 2022 TIME: 5:11 PM PATIENT IDENTITY VERIFICATION COMPLETED USING TWO (2) IDENTIFIERS: Name and Date of confirmed by patient verbally. FALL SCREENING: Has the patient had 2 falls in the last year or 1 fall with injury or currently using an Ambulatory Assistive Device (Walker, Cane, Wheelchair, Crutches, etc.)? No PATIENT GENDER DATA: Female. status: : No status: NO. PATIENT RELEVANT IMPLANT DATA REVIEWED: Yes RADIOLOGY DEPARTMENT: General X-ray: Exam(s) Completed: Chest X-Ray PERIPHERAL IV DATA: Not applicable SIGNED BY: RT Vadim(R) September 20, 2022 5:11 PM [facility] 09-20-2022 Miscellaneous Notes Patient notified of results, verbalized understanding of instructions given. Mel Andersen MA Please call and let patient know her chest x-ray was clear. Continue medications as prescribed. documented in this encounter [facility] 09-20-2022 History of Presen t illness Narrative Radiology Service Progress Note PATIENT NAME: Krista Foley DATE OF SERVICE: September 20, 2022 TIME: 5:11 PM PATIENT IDENTITY VERIFICATION COMPLETED USING TWO (2) IDENTIFIERS: Name and Date of confirmed by patient verbally. FALL SCREENING: Has the patient had 2 falls in the last year or 1 fall with injury or currently using an Ambulatory Assistive Device (Walker, Cane, Wheelchair, Crutches, etc.)? No PATIENT GENDER DATA: Female. status: : No status: NO. PATIENT RELEVANT IMPLANT DATA REVIEWED: Yes RADIOLOGY DEPARTMENT: General X-ray: Exam(s) Completed: Chest X-Ray PERIPHERAL IV DATA: Not applicable SIGNED BY: RT Vadim(R) September 20, 2022 5:11 PM documented in this encounter [facility] 09-20-2022 Note HNO ID: [id number] Author: Martine Cyr PA-C Service: ? Author Type: Physician Supervisor Color Making Type: Progress Notes Filed: 09/20/2022 11:19 AM Note Text: This note was created using [employer]. Subjective Krista Foley is a 47 year old female. HPI Patient presents with a chief complaint of cough and wheezing over the past week. She denies history of asthma. She is not a smoker. No fever. She states the cough had worsened in the past day so she came in for evaluation. She was concern for pneumonia. No diarrhea or vomiting. No abdominal pain. She took a home COVID test yesterday which was negative. Denies chest pain. Review of Systems Constitutional: Negative for fever. HENT: Positive for congestion. Negative for sore throat. Respiratory: Positive for cough, shortness of breath and wheezing. Cardiovascular: Negative. Gastrointestinal: Negative. Genitourinary: Negative. Musculoskeletal: Negative. All other systems reviewed and are negative. PAST MEDICAL HISTORY Diagnosis Date Arthritis Depression with anxiety 08/19/2010 Diverticulitis 08/07 Esophageal reflux Menometrorrhagia 11/24/2011 VIOLETA on CPAP Other forms of migraine Current Outpatient Medications Medication Sig Dispense Refill cholecalciferol, vitamin D3, (VITAMIN D3 ORAL) Take by mouth. IBUPROFEN (ADVIL ORAL) Take by mouth as needed. No current facility-administered medications for this visit. PAST SURGICAL HISTORY Procedure Laterality Date DELIVERY ONLY 2005,2008 , low cervicalx2 EXTRACTION, ERUPTED TOOTH OR EXPOSED ROOT (ELEVATION AND/OR FORCEPS REMOVAL) wisdom teeth LIGATE FALLOPIAN TUBE 2009 Tubal ligation OVARIAN CYSTECTOMY 2009 Done with C section and BTL, left REDUCTION OF LARGE BREAST 2007 REMOVAL GALLBLADDER 2004 Cholecystectomy FAMILY HISTORY Problem Relation Age of Onset other (Uterine Fibroids) Mother Hysterectomy at 36 Hypertension Father other (Colon Polyps) Father Heart Maternal Grandmother HI Cancer Maternal Grandfather PANCREATIC/LIVER Heart Paternal Grandmother Cancer Paternal Grandmother Cancer Paternal Grandfather Kidney Coronary Artery Disease Paternal Grandfather Stroke Paternal Grandfather Social History Tobacco Use Smoking status: Never Smokeless tobacco: Never Vaping Use Vaping Use: Never used Substance Use Topics Alcohol use: No Drug use: No BP 126/78 Pulse 98 Temp 36.8 ?C (98.3 ?F) Resp 18 Wt (!) 164.2 kg (362 lb) LMP 02/06/2012 SpO2 95% BMI 51.21 kg/m? Objective LMP 02/06/2012 Physical Exam Vitals reviewed. Constitutional: Appearance: Normal appearance. HENT: Head: Normocephalic and atraumatic. Right Ear: Tympanic membrane, ear canal and external ear normal. Left Ear: Tympanic membrane, ear canal and external ear normal. Nose: Congestion present. Mouth/Throat: Mouth: Mucous membranes are moist. Pharynx: Oropharynx is clear. Cardiovascular: Rate and Rhythm: Normal rate and regular rhythm. Heart sounds: Normal heart sounds. Pulmonary: Effort: Pulmonary effort is normal. No respiratory distress. Breath sounds: Wheezing present. No rhonchi or rales. Musculoskeletal: Cervical back: Neck supple. Lymphadenopathy: Cervical: No cervical adenopathy. Skin: General: Skin is warm and dry. Neurological: Mental Status: She is alert. Assessment and Plan ASSESSMENT/PLAN: 1. Bronchitis - ICD9: 490, ICD10: J40 X-ray is down right now, she will return later when it is up to have an x-ray of her chest. I will treat with prednisone, doxycycline and albuterol inhaler. Discussed red flags to be seen again. Follow-up with PCP. Patient agreeable. - XR CHEST 2V FRONTAL/LAT Martine Cyr PA-C [facility] 09-20-2022 History of Presen t illness Narrative This note was created using [employer]. Subjective Krista Foley is a 47 year old female. HPI Patient presents with a chief complaint of cough and wheezing over the past week. She denies history of asthma. She is not a smoker. No fever. She states the cough had worsened in the past day so she came in for evaluation. She was concern for pneumonia. No diarrhea or vomiting. No abdominal pain. She took a home COVID test yesterday which was negative. Denies chest pain. Review of Systems Constitutional: Negative for fever. HENT: Positive for congestion. Negative for sore throat. Respiratory: Positive for cough, shortness of breath and wheezing. Cardiovascular: Negative. Gastrointestinal: Negative. Genitourinary: Negative. Musculoskeletal: Negative. All other systems reviewed and are negative. PAST MEDICAL HISTORY Diagnosis Date Arthritis Depression with anxiety 08/19/2010 Diverticulitis 08/07 Esophageal reflux Menometrorrhagia 11/24/2011 VIOLETA on CPAP Other forms of migraine Current Outpatient Medications Medication Sig Dispense Refill cholecalciferol, vitamin D3, (VITAMIN D3 ORAL) Take by mouth. IBUPROFEN (ADVIL ORAL) Take by mouth as needed. No current facility-administered medications for this visit. PAST SURGICAL HISTORY Procedure Laterality Date DELIVERY ONLY 2005,2008 , low cervicalx2 EXTRACTION, ERUPTED TOOTH OR EXPOSED ROOT (ELEVATION AND/OR FORCEPS REMOVAL) wisdom teeth LIGATE FALLOPIAN TUBE 2009 Tubal ligation OVARIAN CYSTECTOMY 2009 Done with C section and BTL, left REDUCTION OF LARGE BREAST 2006 REMOVAL GALLBLADDER 2003 Cholecystectomy FAMILY HISTORY Problem Relation Age of Onset other (Uterine Fibroids) Mother Hysterectomy at 36 Hypertension Father other (Colon Polyps) Father Heart Maternal Grandmother HI Cancer Maternal Grandfather PANCREATIC/LIVER Heart Paternal Grandmother Cancer Paternal Grandmother Cancer Paternal Grandfather Kidney Coronary Artery Disease Paternal Grandfather Stroke Paternal Grandfather Social History Tobacco Use Smoking status: Never Smokeless tobacco: Never Vaping Use Vaping Use: Never used Substance Use Topics Alcohol use: No Drug use: No BP 126/78 Pulse 98 Temp 36.8 C (98.3 F) Resp 18 Wt (!) 164.2 kg (362 lb) LMP 02/06/2012 SpO2 95% BMI 51.21 kg/m Objective LMP 02/06/2012 Physical Exam Vitals reviewed. Constitutional: Appearance: Normal appearance. HENT: Head: Normocephalic and atraumatic. Right Ear: Tympanic membrane, ear canal and external ear normal. Left Ear: Tympanic membrane, ear canal and external ear normal. Nose: Congestion present. Mouth/Throat: Mouth: Mucous membranes are moist. Pharynx: Oropharynx is clear. Cardiovascular: Rate and Rhythm: Normal rate and regular rhythm. Heart sounds: Normal heart sounds. Pulmonary: Effort: Pulmonary effort is normal. No respiratory distress. Breath sounds: Wheezing present. No rhonchi or rales. Musculoskeletal: Cervical back: Neck supple. Lymphadenopathy: Cervical: No cervical adenopathy. Skin: General: Skin is warm and dry. Neurological: Mental Status: She is alert. Assessment and Plan ASSESSMENT/PLAN: 1. Bronchitis - ICD9: 490, ICD10: J40 X-ray is down right now, she will return later when it is up to have an x-ray of her chest. I will treat with prednisone, doxycycline and albuterol inhaler. Discussed red flags to be seen again. Follow-up with PCP. Patient agreeable. - XR CHEST 2V FRONTAL/LAT Martine Cyr PA-C documented in this encounter [facility] 11-06-2008 History of Past i llness Narrative Problem Noted Date Resolved Date Supervision of other high-risk (V23.89) 11/06/2008 03/11/2009 Previous delivery, antepartum condition or complication 07/19/2008 03/11/2009 documented as of this encounter (statuses as of 09/20/2022) [facility] History of Past illness Narrative* Problem Noted Date Resolved Date Supervision of other high-risk (V23.89) 11/06/2008 03/11/2009 Previous delivery, antepartum condition or complication 07/19/2008 03/11/2009 documented as of this encounter (statuses as of 09/21/2022) [facility] + Plan note No data available for this section [facility] Sarith[facility] Evaluation note* Diagnosis Bronchitis- Primary Bronchitis, not specified as acute or chronic Bronchitis Bronchitis, not specified as acute or chronic documented in this encounter [facility] note* Diagnosis Bronchitis Bronchitis, not specified as acute or chronic documented in this encounter [facility] Summary Purpose Family History No Family History Records FoundNo Family History Records Found No data available for this section Advance Directives No Advanced Directives Records FoundNo Advanced Directives Records Found Additional Source Comments INFORMATION SOURCE (unrecogn ized section and content) DATE CREATED AUTHOR 12/12/2020 [facility] ([place]) DATE CREATED AUTHOR AUTHOR'S ORGANIZ ATION 09/21/2022 [facility] Source Comments (unrecognize d section and content) In the event this informatio n is protected by the Federal Confidentiality of Alcohol and Drug Abuse Patient Records regulations: The Federal rules restrict any use of the information to criminally investigate or prosecute any alcohol or drug abuse patient.[facility] the event this information is protected by the Federal Confidentiality of Alcohol and Drug Abuse Patient Records regulations: The Federal rules restrict any use of the information to criminally investigate or prosecute any alcohol or drug abuse patient.[facility] the event this information is protected by the Federal Confidentiality of Alcohol and Drug Abuse Patient Records regulations: The Federal rules restrict any use of the information to criminally investigate or prosecute any alcohol or drug abuse patient.[facility] Care Teams (unrecognized sec tion and content) 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 Start Date End Date Beverly Coronado MD [address] [place] [address] [id number] PCP - General Family Medicine 09/20/22 Pcp, No 08/25/12 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 This clinical summary was aggregated from multiple sources. Caution should be exercised in using it in the provision of clinical care. This summary normalizes information from multiple sources, and as a consequence, information in this document may materially change the coding, format and clinical context of patient data. In addition, data may be omitted in some cases. CLINICAL DECISIONS SHOULD BE BASED ON THE PRIMARY CLINICAL RECORDS. [facility] [employer] [facility]. provides no warranty or guarantee of the accuracy or completeness of information in this document.
--- NOTE | 2024-01-18 07:39 | PRE.ANES_ITS ---
ASA Classification* ASA Classification ASA Classification: 3 Assessment & Plan Anesthesia* Anesthesia Assessment Anesthesia Assessment: Discussed sedation and/or anesthesia options, risks, benefits, and alternatives with patient/parents/legal guardian/POA. Questions invited. The patient/parents/legal guardian/POA seems to understand and agrees to proceed with anesthesia plan. Reviewed the physical assessment, medical history, allergy history and patient home medications list prior to surgery/procedure/anesthetic and documented any changes. Performed airway and anesthesia risk assessments. Anesthesia Type Anesthesia Type: MAC Anesthesia Focused Assessment* Airway Assessment Mouth opens: >3 cm Mallampati Score: II Focused Labs Anesthesia Preop lab: CBC WBC 5.4 K/mm3 (4.4-11.0) 10/12/22 08:56 RBC 4.73 M/mm3 (4.2-5.4) 10/12/22 08:56 Hgb 13.6 g/dL (12.0-15.0) 10/12/22 08:56 Hct 42.1 % (37-47) 10/12/22 08:56 Plt Count 323 K/mm3 (150-450) 10/12/22 08:56 CHEMISTRY Potassium 4.0 mmol/L (3.5-5.1) 09/14/23 16:45 Sodium 139 mmol/L (136-145) 09/14/23 16:45 Magnesium 2.2 mg/dL (1.6-2.6) 01/21/22 16:51 BUN 16 mg/dL (7-18) 09/14/23 16:45 Creatinine 0.94 mg/dL (0.55-1.02) 09/14/23 16:45 Glucose 93 mg/dL (74-106) 09/14/23 16:45 TSH 2.66 uIU/mL (0.358-3.74) 09/14/23 16:45 COAG Pre-Assessment Diagnosis/Proposed Procedure Planned Operative Procedure(s): CSCOPE OA Anesthesia History 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 When Was Last Pacemaker Check QUESTION #4 FULL TEXT: You/Your Family Experience fever (hyperthermia) with Anesthesia Last Oral Intake Last Oral intake: Last Oral Intake NPO since Meds taken in AM with sips of water? Meds patient instructed to take am of surgery PONV PONV - nut blanker operator: PONV - nut blanker operator Female Yes 01/17/24 08:50 HX of Motion Sickness Yes 01/17/24 08:50 HX of N/V After Surgery No 01/17/24 08:50 Non-Smoker Yes 01/17/24 08:50 Duration of Surgery greater No 01/17/24 08:50 than 60 minutes Number of Risk Factors 3 01/17/24 08:50 PONV Score Moderate Risk 01/17/24 08:50 Height & Weight Height & Weight: Anesthesia: Height & Weight Height 5 ft 10 in 12/06/23 11:46 Respiratory Assessment Respiratory Assessment - nut blanker operator: Respiratory Tract Infection Hx - nut blanker operator Hx Respiratory Tract Infection No 01/17/24 08:50 STOP Sleep Apnea STOP Sleep Apnea - nut blanker operator: STOP Sleep Apnea - nut blanker operator Hx Hypertension Yes: CONTROLLED WITH MEDS 01/17/24 08:50 Hx Sleep Apnea Yes 01/17/24 08:50 CPAP Yes: HAS NOT USED FOR 5 YRS/ 01/17/24 08:50 RECHECKED AND NO LONGER NEEDED BIPAP No 01/17/24 08:50 Do you snore loudly (louder than talking or can be heard Do you often feel tired/ fatigued/ sleepy during daytime? Has anyone observed you stop breathing during sleep? STOP Results Positive 01/17/24 08:50 QUESTION #5 FULL TEXT : Do you snore loudly (louder than talking or can be heard through closed doors)? 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 Specify any problems Hx of Preganancy in last 3 No 01/17/24 08:50 Months Nurse Filling Out Transfusion DSCHRIBER 01/17/24 08:50 & Questions: Date: 01/17/24 01/17/24 08:50 Time: 08:51 01/17/24 08:50 Patient unable to answer at this time (ie. confused, unrespo /Reproduction History /Reproductive History - nut blanker operator: /Reproductive Hx- nut blanker operator Hx Now No 01/17/24 08:50 Gestational Age (in weeks): EDC: Hx Hx Para Hx Section SAB No 01/17/24 08:50 PFSH Medical History Wears contact lenses Wears glasses Wears partial dentures Depression Anxiety Low iron Migraine headache Loss of consciousness Gastric reflux CPAP (continuous positive airway pressure) dependence Asthma Shortness of breath on exertion Non-smoker History of edema Hypertension Arthritis Home Medications ?Medication ?Instructions ?Recorded ?Last Taken ?Type cholecalciferol (vitamin D3) 50 2,000 unit PO DAILY 11/29/18 Unknown History mcg (2,000 unit) capsule amlodipine 5 mg tablet 5 mg PO QDAY 12/06/23 Unknown History losartan 100 mg tablet 100 mg PO QDAY 12/06/23 Unknown History meloxicam 15 mg tablet 15 mg PO QDAY 12/06/23 Unknown History sertraline 50 mg tablet (Zoloft) 50 mg PO QDAY 12/06/23 Unknown History ibuprofen 600 mg tablet 600 mg PO Q6H PRN pain 01/17/24 Unknown History Allergy/AdvReac Type Severity Reaction Status Date / Time No Known Allergies Allergy Verified 01/18/24 07:38 Family History Mother Colon polyps Surgical History History of hysteroscopy Hx of bilateral breast reduction surgery Hx of cholecystectomy History of Social History household members: spouse current occupational status: employed current occupation: [employer] Smoking Status: Never smoker alcohol intake: never substance use type: does not use Review of Systems (Anesthesia) ROS Narrative System reviewed and no additional complaints, except as documented.
--- NOTE | 2024-01-18 08:15 | COLBX_PTH ---
PATHOLOGY RESULTS PATIENT: KRISTA FOLEY LOC: EN U#:[id number] AGE/SX: 48/F ROOM: RE01/18/[address]: Dr. Bridgette Leung MD : 1975 BED: DIS: 01/18/2024 SPEC #: [id number] RECD: 01/18/24 10:19 STATUS: TIANA DELORIS #: [id number] NEERU: 01/18/24 08:[address]: Bridgette Leung DEPT: SURGICAL PATHOLOGY RECD BY: Yuliet Sena ENTERED: 01/18/24 11:57 SP TYPE: COLON BX OTHR DR: Dr. Dakota Coronado MD Tissues: Transverse colon Sigmoid colon biopsy Sigmoid colon biopsy Procedures: Surgery Specimen Level IV HEADER OPERATION: Colonoscopy and polypectomy and [place] ink PRE-OP DIAGNOSIS: Screening TISSUE SUBMITTED: A- Transverse polyp, B- Sigmoid colon polyp (distal), C- Base of sigmoid colon polyp MICROSCOPIC DIAGNOSIS A. Transverse colon polyp, biopsy: Fragments of hyperplastic polyp. B. Sigmoid colon polyp, biopsy: Benign mucosal polyp with submucosal lipoma. See comment. C. Base of sigmoid colon polyp, biopsy: Polypoid fragments of benign colonic mucosa. 01/19/2024 COMMENT B. Neither hyperplastic nor adenomatous change is identified. Clinical correlation is suggested. MICROSCOPIC DESCRIPTION Slides are reviewed. GROSS DESCRIPTION A. Received in fixative is one container labeled with the patient's name and designated Transverse colon polyp. The specimen consists of multiple irregular fragments of light sexton soft tissue that in aggregate measure 1.0 x 0.2 x 0.1 cm. The specimen is totally submitted in one cassette. B. Received in fixative is one container labeled with the patient's name and designated Sigmoid polyp (distal). The specimen consists of a pink-red polyp measuring 2.0 x 1.7 x 1.0 cm. The presumed base is inked. Section of the polyp reveals fatty cut surfaces. Polyp is serially sectioned and entire specimen is submitted in two cassettes. C. Received in fixative is one container labeled with the patient's name and designated Base of sigmoid colon polyp. The specimen consists of a piece of sexton-pink soft tissue measuring 1.2 x 0.8 x 0.4 cm. The specimen is bisected and submitted entirely in one cassette. 01/18/2024 TC:1 CPT:74439x2
--- NOTE | 2024-01-18 08:15 | COLBX_PTH ---
PATHOLOGY RESULTS PATIENT: KRISTA FOLEY LOC: EN U#:[id number] AGE/SX: 48/F ROOM: RE01/18/[address]: Dr. Bridgette Leung MD : 1975 BED: DIS: 01/18/2024 SPEC #: [id number] RECD: 01/18/24 10:19 STATUS: TIANA DELORIS #: [id number] NEERU: 01/18/24 08:[address]: Bridgette Leung DEPT: SURGICAL PATHOLOGY RECD BY: Yuliet Sena ENTERED: 01/18/24 11:57 SP TYPE: COLON BX OTHR DR: Dr. Dakota Coronado MD Tissues: Transverse colon Sigmoid colon biopsy Sigmoid colon biopsy Procedures: Surgery Specimen Level IV HEADER OPERATION: Colonoscopy and polypectomy and [place] ink PRE-OP DIAGNOSIS: Screening TISSUE SUBMITTED: A- Transverse polyp, B- Sigmoid colon polyp (distal), C- Base of sigmoid colon polyp MICROSCOPIC DIAGNOSIS A. Transverse colon polyp, biopsy: Fragments of hyperplastic polyp. B. Sigmoid colon polyp, biopsy: Benign mucosal polyp. See comment. C. Base of sigmoid colon polyp, biopsy: Polypoid fragments of benign colonic mucosa. 01/19/2024 COMMENT B. Neither hyperplastic nor adenomatous change is identified. Clinical correlation is suggested. MICROSCOPIC DESCRIPTION Slides are reviewed. GROSS DESCRIPTION A. Received in fixative is one container labeled with the patient's name and designated Transverse colon polyp. The specimen consists of multiple irregular fragments of light sexton soft tissue that in aggregate measure 1.0 x 0.2 x 0.1 cm. The specimen is totally submitted in one cassette. B. Received in fixative is one container labeled with the patient's name and designated Sigmoid polyp (distal). The specimen consists of a pink-red polyp measuring 2.0 x 1.7 x 1.0 cm. The presumed base is inked. Section of the polyp reveals fatty cut surfaces. Polyp is serially sectioned and entire specimen is submitted in two cassettes. C. Received in fixative is one container labeled with the patient's name and designated Base of sigmoid colon polyp. The specimen consists of a piece of sexton-pink soft tissue measuring 1.2 x 0.8 x 0.4 cm. The specimen is bisected and submitted entirely in one cassette. 01/18/2024 TC:1 CPT:02358f5
--- NOTE | 2024-01-18 08:25 | H&P.OPEN ---
HPI - General General Date of Service: 01/18/24 HPI Narrative KRISTA FOLEY, is a 48 F who presents for screening colonoscopy. Patient never had previous colonoscopy. Patient's mother has had polyps patient states she goes every year for colonoscopy. Patient said just had an knee surgery and had infection they said the infection could be consistent with something in the gut did have small bowel obstruction just recently solved conservatively is currently getting a colonoscopy shortly. Patient's only abdominal surgery include a laparoscopic cholecystectomy and C-sections. Patient states she has bowel movements daily denies any blood. Patient denies any chronic abdominal pain/nausea/vomiting/reflux. [facility] Medical History Wears contact lenses Wears glasses Wears partial dentures Depression Anxiety Low iron Migraine headache Loss of consciousness Gastric reflux CPAP (continuous positive airway pressure) dependence Asthma Shortness of breath on exertion Non-smoker History of edema Hypertension Arthritis Home Medications ?Medication ?Instructions ?Recorded ?Last Taken ?Type cholecalciferol (vitamin D3) 50 2,000 unit PO DAILY 11/29/18 Unknown History mcg (2,000 unit) capsule amlodipine 5 mg tablet 5 mg PO QDAY 12/06/23 Unknown History losartan 100 mg tablet 100 mg PO QDAY 12/06/23 Unknown History meloxicam 15 mg tablet 15 mg PO QDAY 12/06/23 Unknown History sertraline 50 mg tablet (Zoloft) 50 mg PO QDAY 12/06/23 Unknown History ibuprofen 600 mg tablet 600 mg PO Q6H PRN pain 01/17/24 Unknown History Allergy/AdvReac Type Severity Reaction Status Date / Time No Known Allergies Allergy Verified 01/18/24 07:38 Family History Mother Colon polyps Surgical History History of hysteroscopy Hx of bilateral breast reduction surgery Hx of cholecystectomy History of Social History household members: spouse current occupational status: employed current occupation: [employer] Smoking Status: Never smoker alcohol intake: never substance use type: does not use Past Medical/Surgical History Planned Operation Planned Operative Procedure(s): CSCOPE OA Previous Hospitalizations/Surgeries HX Hospitalizations: No Any Problems With Anesthesia: No You/Your Family Experience Fever (Hyperthermia) With Anes: No Cholinesterase deficiency: No Cardiovascular Hx of Irregular Heartbeat and/or Afib: No Hx Heart Attack: No Hx Congestive Heart Failure: No Hx Rheumatic Fever: No Hx Hypertension: Yes (CONTROLLED WITH MEDS) Hx Internal Defibrillator: No Hx Pacemaker: No Hx Pain in Legs when Walking/Leg Cramps: No Respiratory HX of Shortness of Breath: No Hx Chronic Obstructive Pulmonary Disease (COPD): No Hx Asthma: No Hx Emphysema: No Hx Sleep Apnea: Yes CPAP: Yes (HAS NOT USED FOR 5 YRS/RECHECKED AND NO LONGER NEEDED) BIPAP: No Hx Respiratory Tract Infection/Cold (presently): No Result (for STOP score): Positive Smoking Status: Never smoker Gastrointestinal Hx Gastrointestinal Bleed: No Hx Ulcer: No Special diet followed at home: No Neurological Hx Seizures: No Hx Multiple Sclerosis: No Hx Parkinson's Disease: No Hx Head/Neck Injury: No Hx Headaches: No Hx Back Injury/Pain: Yes Does patient have nerve stimulator: No Blood Disorder Hx Hepatitis: No Hx Anemia: Yes Reproduction : No Is Patient Lactating: No Genitourinary Hx Renal Disease: No Hx Dialysis: No Musculoskeletal Hx Arthritis: Yes Hx Gout: No Endocrine Hx Diabetes: No (Grandmother & grandfather) Thyroid Disease: No Psycho/Social Hx Anxiety: Yes Hx Depression: Yes Hx Dementia: No Miscellaneous Hx Cancer: No Recent Exposure to Contagious Disease: No Allergies No Known Allergies Allergy (Verified 01/18/24 07:38) Discharge Is Pt Admitted From a [facility], or a Intermediate: No After D/C, Where Do you Plan to Go: Return Home Vital Signs Vital Signs Vital Signs: 01/18/24 07:38 01/18/24 07:38 Temperature 98.4 F Temperature Source Temporal Pulse Rate 83 Respiratory Rate 18 Respiratory Pattern Normal Blood Pressure 147/84 H Blood Pressure Mean 105 Blood Pressure Source Monitor Blood Pressure Position Semi-Fowlers Blood Pressure Location Right Forearm Pulse Ox 97 Oxygen Delivery Method Room Air Weight Weight: 365 lb 15.477 oz Body Mass Index (BMI) 52.4 Physical Exam Const alert, oriented x3 and no apparent distress HEENT normocephalic and head/scalp atraumatic Resp normal respiratory effort Cardio regular rate GI soft to palpation and non-tender; Negative for non-distended Palpation: Negative for guarding Extremity no clubbing, cyanosis or edema Skin no rashes or lesions noted Neuro CN's II-XII intact bilaterally Psych mental status grossly normal Assessment & Plan Assessment/Plan (1) Encounter for screening for malignant neoplasm of colon: Surgery Risks - Colonoscopy I discussed with the patient the risks of the procedure: Yes Risks Include but are not Limited To: Risks include but are not limited to: Bleeding, perforation requiring further surgery, inability to complete colonoscopy requiring barium enema.
--- NOTE | 2024-01-18 09:25 | OP.CCLET_ITS ---
01/18/2024 Kolby Coronado [address] [place] [address] Re : Colonoscopy procedure for Patricia Jones Dear Dr. Coronado This procedure was performed on Thursday, January 18, 2024. My impressions and recommendations are as follows: Impressions : - Diverticulosis in the sigmoid colon. - One less than 5 mm polyp in the transverse colon, removed with a hot snare. Resected and retrieved. - One 30 mm polyp in the sigmoid colon, removed with a hot snare. Resected and retrieved. Tattooed. Clips were placed. Recommendations : - Repeat colonoscopy 1-3 years for surveillance based on pathology results. - Continue present medications. My findings are described in the full procedure note, which is enclosed. If I can be of further assistance, please feel free to contact me at Doctor phone number(s): , Work: . Sincerely, MD Bridgette Medrano MD 01/18/2024 9:24:22 AM This report has been signed electronically.
--- NOTE | 2024-01-18 09:25 | OP.COLON_ITS ---
Patient Name: Patricia Jones Procedure Date: 01/18/2024 8:37 AM Date of : 1975 Age: 48 Procedure: Colonoscopy Indications: Screening for colorectal malignant neoplasm Providers: Bridgette Leung MD Referring MD: Kolby Coronado Medicines: Monitored Anesthesia Care Patient Profile: This is a 48 year old female. Last Colonoscopy: none. The patient's first colonoscopy is today. Complications: No immediate complications. Procedure: Pre-Anesthesia Assessment: - Prior to the procedure, a History and Physical was performed, and patient medications and allergies were reviewed. The patient's tolerance of previous anesthesia was also reviewed. The risks and benefits of the procedure and the sedation options and risks were discussed with the patient. All questions were answered, and informed consent was obtained. Prior Anticoagulants: The patient has taken no anticoagulant or antiplatelet agents. ASA Grade Assessment: Per anesthesia. After reviewing the risks and benefits, the patient was deemed in satisfactory condition to undergo the procedure. After I obtained informed consent, the scope was passed under direct vision. Throughout the procedure, the patient's blood pressure, pulse, and oxygen saturations were monitored continuously. The Colonoscope was introduced through the anus and advanced to the cecum, identified by the appendiceal orifice, ileocecal valve and palpation. The colonoscopy was performed without difficulty. The patient tolerated the procedure well. The quality of the bowel preparation was good. Scope In: 8:42:07 AM Scope Withdrawal Time 0 hours 24 minutes 43 seconds Scope Out: 9:13:18 AM Total Procedure Duration Time 0 hours 31 minutes 11 seconds Findings: The perianal and digital rectal examinations were normal. A few small-mouthed diverticula were found in the sigmoid colon. A less than 5 mm polyp was found in the transverse colon. The polyp was semi-sessile. The polyp was removed with a hot snare. Resection and retrieval were complete. A 30 mm polyp was found in the sigmoid colon long stalk???stalk sent separately stalk was 1.2 cm in distal aspect was 1.8 cm. The polyp was pedunculated. The polyp was removed with a hot snare. Resection and retrieval were complete. Area was tattooed with an injection of Pricilla ink. To close a defect after polypectomy, two hemostatic clips were successfully placed. Impression: - Diverticulosis in the sigmoid colon. - One less than 5 mm polyp in the transverse colon, removed with a hot snare. Resected and retrieved. - One 30 mm polyp in the sigmoid colon, removed with a hot snare. Resected and retrieved. Tattooed. Clips were placed. Recommendation: - Repeat colonoscopy 1-3 years for surveillance based on pathology results. - Continue present medications. Procedure Code(s): --- Professional --- 96718, PT, Colonoscopy, flexible; with removal of tumor(s), polyp(s), or other lesion(s) by snare technique [id number], Colonoscopy, flexible; with directed submucosal injection(s), any substance Diagnosis Code(s): --- Professional --- Z12.11, Encounter for screening for malignant neoplasm of colon D12.3, Benign neoplasm of transverse colon (hepatic flexure or splenic flexure) D12.5, Benign neoplasm of sigmoid colon K57.30, Diverticulosis of large intestine without perforation or abscess without bleeding CPT copyright 2021 [employer]. All rights reserved. The codes documented in this report are preliminary and upon mandarin teacher review may be revised to meet current compliance requirements. MD Bridgette Medrano MD 01/18/2024 9:24:22 AM This report has been signed electronically. Number of Addenda: 0 Note Initiated On: 01/18/2024 8:37 AM
--- NOTE | 2024-01-18 09:27 | PCM.POST.ANE ---
Anesthesia: Postop Eval I Current Vital Signs Temperature: 97.9 F Pulse Rate: 84 Blood Pressure: 106/76 Respiratory Rate: 16 Pulse Ox: 94 Oxygen Delivery Method: Room Air Assessment Airway patent: Yes Spontaneous unlabored respirations: Yes Mental status: Asleep nausea: No Vomiting: No Anesthesia Complication: No Fluid Hydration Crystalloid volume administer (ml): 70 Total IV fluid infused: 70 Progress Note Anesthesia document: Postop Eval 1 completed: Yes
--- NOTE | 2024-01-18 13:47 | PCM.POSTANE2 ---
Anesthesia Postop Eval I Sum Postop Eval Completion status Anesthesia document: Postop Eval 1 completed: Yes Anesthesia Postop Eval I Summary Anesthesia Postop Eval I Summary: Anesthesia Postop Eval I: Assessment Summary Airway patent Yes 01/18/24 09:28 [email or web address] Spontaneous unlabored Yes 01/18/24 09:28 [email or web address] respirations Mental status Asleep 01/18/24 09:28 [email or web address] nausea No 01/18/24 09:28 [email or web address] Vomiting No 01/18/24 09:28 [email or web address] Anesthesia Postop Eval I: Fluid Summary Crystalloid volume administer 70 01/18/24 09:28 [email or web address] (ml) Colloids volume administered ( ml) Blood Product volume administered (ml) Total IV fluid infused 70 01/18/24 09:28 [email or web address] Anesthesia Postop Eval I: Summary Notes Anesthesia Complication No 01/18/24 09:28 [email or web address] Anesthesia Complication Comment: Post-operative progress note Anesthesia: Postop Eval II Evaluation Mental status: Awake and Calm Pain Level: 0 nausea: No Vomiting: No Complications Anesthesia Complication: No
== END 2024-01-18 10:19 | disposition home or self-care (01) ==
LOC: EN 07:18 → AC 07:19
PROVIDERS: PCP Family Medicine; Referring Provider Family Medicine; Visit Provider Surgery
PROC: 0DJD8ZZ Inspection of Lower Intestinal Tract, Via Natural or Artificial Opening Endoscopic (ICD-10-PCS; CPT 45378; principal; 2024-01-18 08:10)
DX: Z12.11 Encounter for screening for malignant neoplasm of colon (principal); K57.30 Diverticulosis of large intestine without perforation or abscess without bleeding; I10 Essential (primary) hypertension; Z90.49 Acquired absence of other specified parts of digestive tract; J45.909 Unspecified asthma, uncomplicated; K21.9 Gastro-esophageal reflux disease without esophagitis; K63.5 Polyp of colon; Z79.899 Other long term (current) drug therapy
CPT/HCPCS: 45385; 45381; 88305; A4648; J2405

== ENCOUNTER → 2024-12-07 | Outpatient (CLI) | payer SELFPAY ==
[2024-12-07 15:25] LABS: Hematocrit 40.7 % (37-47); Hemoglobin 13.3 g/dL (12.0-15.0); Mean Corp Hgb Conc 32.7 g/dL (32-36); Mean Corpuscular Volume 85.1 fL (81-99); Mean Platelet Vol. 9.0 fl (6.2-12.0); Platelet Count 336 K/mm3 (150-450); RBC Distribution Width CV 12.7 % (11.6-14.6); RBC Distribution Width SD 39.3 fl (35.1-43.9); Red Blood Count 4.78 M/mm3 (4.2-5.4); White Blood Count 6.2 K/mm3 (4.4-11.0)
[2024-12-07 16:25] LABS: AST(SGOT) 22 U/L (<=31); Alanine Aminotransfer ALT/SGPT 21 U/L (<=34); Albumin, Serum 4.0 g/dL (3.5-5.0); Alkaline Phosphatase 76 U/L (35-104); Anion Gap 12 (5-15); BUN 11 mg/dL (4-19); BUN/Creat Ratio 13.4 RATIO (10-20); Calcium,Total 9.3 mg/dL (7.6-11.0); Carbon Dioxide 26.0 mmol/L (21.0-32.0); Chloride 100 mmol/L (98-108); Globulin 3.3 g/dL (2.2-4.2); Glucose 101 mg/dL (70-99); Potassium 3.9 mmol/L (3.3-5.1)
[2024-12-07 16:29] LABS: Pro- Brain NATRIURETIC PEPTIDE < 36 pg/mL (<=900)
== END | disposition home or self-care (01) ==
LOC: MFPLAB 12:26
PROVIDERS: PCP Family Medicine; Referring Provider Family Medicine; Visit Provider Family Medicine
DX: R60.0 Localized edema (principal)
CPT/HCPCS: 80053; 83880; 84443; 85027

== ENCOUNTER → 2025-01-09 | Outpatient (CLI) | payer OTHER, SELFPAY ==
--- NOTE | 2025-01-09 13:48 | ECHOD_ITS ---
Reason For Study Reason For Study: EDEMA Procedure This was a 2D Doppler, Color Flow transthoracic echocardiogram. The study was technically difficult. Exam performed in department. Left Ventricle Normal LV size. The left ventricular ejection fraction is 60 %. Stage 2 diastolic dysfunction. No regional wall motion abnormalities noted. Right Ventricle Normal RV size. Normal systolic function. Atria Normal left atrium. Normal right atrium. Mitral Valve Normal mitral valve. Tricuspid Valve Normal tricuspid valve. Aortic Valve Trisinus/trileaflet aortic valve. Pulmonic Valve Normal pulmonic valve. Great Vessels Normal aortic root. The pulmonary artery is normal size. Inferior vena cava collapse with respiration. Pericardium/Pleural No pericardial effusion. MMode/2D Measurements & Calculations LVIDd: 4.8 cm IVSd: 1.0 cm LVOT diam: 2.2 cm LVIDs: 2.8 cm LVPWd: 1.00 cm LVOT area: 3.8 cm2 RVDd: 3.5 cm FS: 40.6 % asc Aorta Diam: 3.9 cm LAV(MOD-bp): 48.4 ml LVAd ap4: 26.5 cm2 LAV(MOD-bp) Indexed: 18.2 ml/m2 LVLd ap4: 8.1 cm LAV(MOD-sp2): 58.3 ml EDV(MOD-sp4): 70.7 ml LAV(MOD-sp4): 39.0 ml EDV(sp4-el): 73.7 ml LVAs ap4: 15.1 cm2 LVLs ap4: 6.7 cm ESV(MOD-sp4): 27.9 ml ESV(sp4-el): 28.7 ml EF(MOD-sp4): 60.5 % EF(sp4-el): 61.0 % LVAd ap2: 23.1 cm2 SV(MOD-sp4): 42.8 ml SV(MOD-sp2): 32.3 ml LVLd ap2: 7.6 cm SI(MOD-sp4): 16.1 ml/m2 SI(MOD-sp2): 12.2 ml/m2 EDV(MOD-sp2): 59.9 ml EDV(sp2-el): 60.0 ml LVAs ap2: 14.9 cm2 LVLs ap2: 6.8 cm ESV(MOD-sp2): 27.6 ml ESV(sp2-el): 27.5 ml EF(MOD-sp2): 54.0 % SV(sp4-el): 44.9 ml Ao sinus diam: 3.[address] Junction: 3.4 cm LA dimension(2D): 4.0 cm LA A4 area: 16.2 cm2 RA A4 area: 12.5 cm2 TAPSE: 2.1 cm Time Measurements MV dec time: 0.24 sec Doppler Measurements & Calculations MV E max nito: 57.1 cm/sec Lat Peak E' Nito: 12.7 cm/sec Med Peak E' Nito: 10.6 cm/sec MV A max nito: 52.7 cm/sec E/E' lat: 4.5 E/E' med: 5.4 MV E/A: 1.1 MV dec slope: 237.8 cm/sec2 Ao V2 max: 130.6 cm/sec LV V1 max: 104.4 cm/sec Ao max P.8 mmHg LV V1 max P.4 mmHg Ao V2 mean: 100.1 cm/sec LV V1 mean P.3 mmHg Ao mean P.3 mmHg LV V1 mean: 71.0 cm/sec Ao V2 VTI: 25.4 cm LV V1 VTI: 17.6 cm AV (velocity ratio): 0.69 TATI(I,D): 2.6 cm2 TATI(V,D): 3.0 cm2 SV(LVOT): 67.0 ml PA V2 max: 94.0 cm/sec ECHO/Echo Complete Interpretation Summary The left ventricular ejection fraction is 60 %. Normal LV size. Stage 2 diastolic dysfunction. The global longitudinal strain is normal. The global longitudinal strain = -17 % (normal). Ordering Physician: Dakota Coronado Referring Physician: Dakota Coronado Performed By: Domi Rodriguez RDCS
== END | disposition home or self-care (01) ==
LOC: CVS 13:45
PROVIDERS: PCP Family Medicine; Referring Provider Family Medicine; Visit Provider Family Medicine
DX: R60.0 Localized edema (principal)
CPT/HCPCS: 93306